=== PATIENT | female | born 1950 | race Caucasian/White ===

== ENCOUNTER 2023-07-20 23:55 | Inpatient (IN) | payer MEDICARE, SELFPAY ==
[2023-07-20 20:07] VITALS: BP 155/89
[2023-07-20 20:25] LABS: % Basophils 0.2 % (0-2); % Eosinophils 0.2 % (0-6); % Immature Granulocytes 0.4 % (0-0.5); % Lymphocytes 5.2 % (20.5-51.1); % Monocytes 4.1 % (1.7-9.3); % Neutrophils 89.9 % (42.2-75.2); Absolute Lymphocytes 0.6 10^3/uL (1.2-3.4); Absolute Monocytes 0.4 10^3/uL (0.1-0.6); Absolute Neutrophils 9.6 10^3/uL (1.4-6.5); Hematocrit 35.9 % (37.0-47.0); Hemoglobin 12.9 g/dL (12.0-16.0); Mean Corp Hgb Conc. 35.9 g/dL (33.0-37.0); Mean Corpuscular Hgb 33.3 pg (27.0-31.0); Mean Corpuscular Volume 92.8 fL (81.0-99.0); Mean Platelet Volume 10.9 fL (7.4-10.4); Nucleated Red Blood Cells % 0 %; Platelet Count 245 10^3/uL (130-400); Red Blood Cell Count 3.87 10^6/uL (4.20-5.40); Red Cell Dist. Width 12.9 % (11.5-14.5); White Blood Cell Count 10.7 10^3/uL (4.8-10.8)
[2023-07-20 20:41] LABS: Lactic Acid 1.3 mmol/L (0.7-2.0)
[2023-07-20 20:42] LABS: ALT (SGPT) 13 U/L (0-35); AST (SGOT) 22 U/L (14-36); Albumin 3.7 g/dl (3.5-5.0); Alkaline Phosphatase 79 U/L (38-126); Blood Urea Nitrogen 17 mg/dl (7-17); Calcium 9.4 mg/dl (8.4-10.2); Carbon Dioxide 25 mmol/L (22-30); Chloride 101 mmol/L (98-107); Glucose 130 mg/dl (70-99); Potassium 3.2 mmol/L (3.5-5.1); Sodium 132 mmol/L (135-145); Total Bilirubin 1.2 mg/dl (0.2-1.3); Total Protein 5.9 g/dl (6.3-8.2); eGFR > 60.00
[2023-07-20 20:45] LABS: COVID-19 Antigen Negative (Negative)
[2023-07-20 22:14] VITALS: BMI 25.1
[2023-07-20 22:18] VITALS: BP 152/88
[2023-07-20] MEDS: NSS 500 IV (22:19)
[2023-07-20] MEDS: DUONEB 3 ML INH (22:19)
[2023-07-20] MEDS: TYLENOL 1000 MG PO (22:39)
[2023-07-20 22:43] LABS: NT-proBNP 3620 pg/ml
--- NOTE | 2023-07-20 22:59 | ED.GENMED ---
History of Present Illness
General
Chief Complaint: Cough
Source: patient
Exam Limitations: none
Time Seen by Provider: 07/20/23 21:38
Nursing documentation reviewed up to this point in time: agreed with
Travel History
Have you had any contact with someone who has COVID-19?: No
Do you have any symptoms of coronavirus? Fever > 100 degrees, chills, cough, shortness of breath, sore throat, loss of taste or smell, muscle aches, or headache?: Yes
Symptoms:: fever cough
History of Present Illness
History of Present Illness:
Patient to ED with complaint of cough and SOB. Symptoms started last PM. States she took azithromycin 250mg last PM. Today she felt worse so she called 911 for transport here. Denies fever/chills. Difficulty talking in full sentences.
Past History
Past History
ED Past Medical History: Arrthythmia (Paroxysmal atrial fibrillation), Asthma, HTN, Other (Subarachnoid hemorrhage fracture C1, GI bleeding, Arthritis, PNA, Sepsis, questionable PE, Swallowing difficulty) and Other (Traumatic brain injury, C1
fracture, prior pneumonias. uveitis)
ED Past Surgical History: Appendectomy and Gynecological (Vaginal sling)
Social History
Tobacco: Non-smoker
Alcohol: Occasional
Drug: None
Personal:
Living: with family
Employment: Not employed
Family History
Family History: Other (Noncontributory)
Review of Systems
Review of Systems
Allergies reviewed?: Yes
All Other Systems: ROS reviewed and negative except as documented in HPI and ROS
Constitutional: Reports fatigue
EENT: Reports no symptoms
Respiratory: Reports cough and trouble breathing
Cardiac: Reports no symptoms
ABD/GI: Reports no symptoms
: Reports no symptoms
Musculoskeletal: Reports no symptoms
Skin: Reports no symptoms
Neurological: Reports no symptoms
Psychiatric: Reports no symptoms
Phy Exam
General Physical Exam
General Presentation: well appearing and no apparent distress
General age: appears stated age
General Skin: warm and dry
General Habitus: normal
Cardiovascular Exam
Cardiovascular Exam: regular rate/rhythm and no edema
Pulmonary Exam
Pulmonary Exam: decreased breath sounds
Cough: coarse cough
Gastrointestinal Exam
Gastrointestinal Exam: normal bowel sounds, non tender, soft and no organomegaly
Musculoskeletal Exam
Musculoskeletal Exam: full ROM and neuro vasc intact
Skin Exam
Skin Exam: normal color, warm/dry and no rash
Psychiatric Exam
Psychiatric Exam: normal mood/affect
Course
Orders/Labs/Results
Orders:
Orders
07/20/23 20:18
COVID-19 Antigen Urgent
Source: Nasal Swab
Complete Blood Count/With Diff Urgent
Comprehensive Metabolic Panel Urgent
Lactic Acid Urgent
Blood Culture Urgent
CLOTILDE Source: Blood/Venous
Specimen Description:
Influenza A+B Rapid Molecular Urgent
CLOTILDE Source: Nasal Swab
Specimen Description:
07/20/23 22:01
Chest [CR Chest - 2 Views ] Urgent
Comment:
Reason For Exam: cough/sob
07/20/23 22:02
EKG [Electrocardiogram (*1)] Urgent
Reason for Study: Shortness of Breath
EKG- Treatment ONCE
07/20/23 22:14
NT-proBNP Urgent
07/20/23 22:17
0.9% Sodium Chloride 500 ml [Nss] 500 ml IV BOLUS
Ipratropium/Albuterol Sulfate [Duoneb] 3 ml INH R NOW STA
07/20/23 22:21
Acetaminophen [Tylenol] 1,000 mg .ROUTE .STK-MED ONE
Acetaminophen [Tylenol] 1,000 mg PO NOW STA
07/20/23 22:40
Blood Culture Urgent
CLOTILDE Source: Blood/Venous
Specimen Description:
07/20/23 23:01
Azithromycin [Zithromax] 500 mg PO NOW STA
CefTRIAXone [Rocephin] 1,000 mg IV NOW STA
07/20/23 23:51
Admit/Transfer Patient As Directed
Co-Sign Provider:
Level of Care: Inpatient admission
Assign to:: Medical/Surgical
Physician / Group: aidee felipe
Diagnosis: right lower lobe pna, hypokalemia
Reason for Hospitalization: right lower lobe pna, hypokalemia
Expected length of stay greater than two midnights?: Yes
ELOS- Estimated Length of Stay in days: 4
I certify the patient meets the requirements for IP care: Yes
Code Status As Directed
Resuscitation Status: Do not resuscitate
Reached after discussion with pt or family/Healthcare POA: Yes
Based on pt advanced directive or healthcare POA form: Yes
Decision communicated with: per pt
Sputum Culture [Respiratory Culture/Gram Stain] Routine
CLOTILDE Source: Sputum
Specimen Description:
Potassium Chloride [KCl] 40 meq PO NOW STA
07/20/23 23:52
DNR Bracelet Application ONCE
07/21/23 00:48
Acetaminophen [Tylenol] 650 mg PO Q4HPRN PRN
Bisacodyl [Dulcolax] 10 mg RECTAL [id number] PRN
Docusate W/Senna [Senokot-S] 1 tablet PO BIDPRN PRN
Ipratropium/Albuterol Sulfate [Duoneb] 3 ml INH R Q4HPRN PRN
07/21/23 00:48
Activity As Directed
Activity Level: As Tolerated
Intake/ Output As Directed
Frequency: Per unit guidelines
Pneumatic Compression Sleeves As Directed
Type: Knee high
Vital Signs As Directed
Frequency: Per unit guidelines
Pulse Ox/spot Check [RESP] Routine
Quantity: 1
Ot Eval And Treat Routine
Pt Eval And Treat Routine
Activity Level: As Tolerated
DX Deep Vein Thrombosis Video Routine
07/21/23 03:32
Morphine Sulfate 15 mg PO QIDPRN PRN
07/21/23 03:34
Cyclobenzaprine HCl [Flexeril] 5 mg PO TIDPRN PRN
07/21/23 04:00
Morphine Sulfate Extended Rel. [Ms Contin (Extended Release)] 30 mg PO Q8H
07/21/23 05:04
Basic Metabolic Panel IN AM
Complete Blood Count/With Diff IN AM
07/21/23 08:00
Calcium Carbonate/Vitamin D3 [Oscal 500 + D] 500 mg PO DAILY
Cyanocobalamin [Vitamin B-12] 1,000 mcg PO DAILY
Ipratropium/Albuterol Sulfate [Duoneb] 3 ml INH R QID
Multivitamin [Theragran] 1 tablet PO DAILY
Pantoprazole [Protonix] 40 mg PO BID
Polyethylene Glycol Powder [Miralax] 17 grams PO DAILYPRN PRN
Sennosides [Senokot] 8.6 mg PO BID PRN
Valacyclovir HCl [Valtrex] 500 mg PO DAILY
conj estrog-medroxyprogest paula [Prempro] 1 tablet PO DAILY
07/21/23 Dinner
Cholesterol Lowering
At Your Request: Limited Participation
Cholesterol Lowering: Sodium, 2 Gram
07/21/23 22:00
Azithromycin 500 mg/250 ml [Zithromax Infusion] 500 mg in 250 ml IV Q24H
CefTRIAXone [Rocephin] 1,000 mg IV Q24H
Abnormal Lab Results
07/20/23
20:18
RBC 3.87 L 10^6/uL
(4.20-5.40)
Hct 35.9 L %
(37.0-47.0)
MCH 33.3 H pg
(27.0-31.0)
MPV 10.9 H fL
(7.4-10.4)
Absolute Neuts (auto) 9.6 H 10^3/uL
(1.4-6.5)
Absolute Lymphs (auto) 0.6 L 10^3/uL
(1.2-3.4)
Neutrophils % 89.9 H %
(42.2-75.2)
Lymphocytes % 5.2 L %
(20.5-51.1)
Sodium 132 L mmol/L
(135-145)
Potassium 3.2 L mmol/L
(3.5-5.1)
Creatinine 0.5 L mg/dL
(0.6-1.0)
Glucose 130 H mg/dl
(70-99)
Total Protein 5.9 L g/dl
(6.3-8.2)
07/20/23 20:18
07/20/23 20:18
Vital Signs
Initial and Last Documented VS:
Initial Vital Signs
Temp Pulse Resp BP Pulse Ox
100.3 F 101 30 155/89 96
07/20/23 20:07 07/20/23 20:07 07/20/23 20:07 07/20/23 20:07 07/20/23 20:07
Last Documented Vital Signs
Temp Pulse Resp BP Pulse Ox
99.3 F 82 15 134/86 96
07/22/23 07:00 07/22/23 15:04 07/22/23 15:04 07/22/23 07:00 07/22/23 08:30
*Critical Care Note
Total Time (30-74mins, 75-104mins- exclusive of procedures): Not Applicable
ED Attending Note
-
Portions of this chart may have been created with voice recognition software.� Occasional wrong word or��sound alike� substitutions may have occurred due to the inherent limitations of voice recognition software.
Discharge Plan
Departure
Patient Disposition: Admit
Date of Disposition: 07/20/23
Time of Disposition: 23:10
Presentation/result/management discussed w/ accepting MD/DO: Hospitalist
Patient with high blood pressure during this ER visit?: No
Condition: Fair
Covid-19: Not Applicable
Discharge Problem:
Pneumonia
Interventions
Interventions:
*Risk Screen - Suicide Last Done: 07/20/23 20:07
*General Assessment Last Done: 07/20/23 20:07
*Neglect/Abuse Screening Last Done: 07/20/23 20:07
ED- Fall Risk Assessment Last Done: 07/21/23 11:52
*ED COVID-19 Vaccine History Last Done: 07/20/23 20:07
*Nursing Disposition Last Done: 07/21/23 13:56
ED- Pulmonary Assessment Last Done: 07/20/23 22:16
Discharge Date and Time
Discharge Date/Time: 07/21/23 13:56
[2023-07-20 23:00] VITALS: BP 134/92
[2023-07-20] MEDS: ROCEPHIN 1000 MG IV (23:27)
[2023-07-20] MEDS: ZITHROMAX 500 MG PO (23:27)
--- NOTE | 2023-07-20 23:32 | HPS.HSE ---
Family Physician
-
Family Physician: Hilary Braxton
Chief Complaint
-
Productive cough, green nasal sputum, fever chills
History of Present Illness
73-year-old female complaining of productive yellow cough and shortness of breath that started last p.m. she also reports green nasal sputum and headache. She took 1 dose of Zithromax 250 mg last night. She came to ER via EMS. She was noted to be
febrile 101.9F, tachycardic and showing a right lower lobe pneumonia on chest x-ray. She denies headache, chest pain, palpitations, shortness of breath, abdominal pain, nausea, vomiting, diarrhea, urinary symptoms. She has past medical history of
hypertension, asthma, chronic pain on chronic oral opiates, TBI with C1 fracture, insomnia, iron deficiency, B12 deficiency, GERD, paroxysmal A-fib with history of subarachnoid hemorrhage not on any current AC therapy, shingles left eye 20 years ago
with chronic left upper eyelid droop photosensitivity
Medical History
Past Medical History
Past Medical History: Reports Other
Additional Past Medical History:
hypertension
asthma
chronic pain on chronic oral opiates
TBI with C1 fracture
insomnia
iron deficiency, B12 deficiency
GERD
paroxysmal A-fib with history of subarachnoid hemorrhage not on any current AC therapy
shingles left eye 20 years ago with chronic left upper eyelid droop photosensitivity
Past Surgical History: Reports Other
Additional Past Surgical History:
Appendectomy
Vaginal sling
IVC filter for DVT
Eye surgery for glaucoma and cataracts
Social History
Tobacco: Non-smoker
Alcohol: None
Drug: None
Personal: Single
Living: Alone
Employment: Retired
Family History
Family History: Not pertinent
Allergies / Home Medications
Allergies reflects when Allergies were last updated in aitainment.
Home Medications with original date entered in aitainment
Allergy/Medication List:
Allergies
Allergy/AdvReac Type Severity Reaction Status Date / Time
Adhesive Bandage Allergy skin Verified 07/20/23 20:09
*RETIRED-12/16/11 irritation
[Adhesive Bandage]
lanolin Allergy Unknown Verified 07/20/23 20:09
Latex, Natural Rubber Allergy Unknown Verified 07/20/23 20:09
povidone-iodine Allergy watery Verified 07/20/23 20:09
[From Betadine] blister on
back
sodium lauryl sulfate Allergy breaks out Verified 07/20/23 20:09
seasonal Allergy Pharmacy Uncoded 07/20/23 20:09
to Review
some anesthesias Allergy Unknown Uncoded 07/20/23 20:09
Home Medications
acetaminophen 325 mg tablet 650 mg PO Q6HPRN PRN mild pain 11/24/18
albuterol sulfate 90 mcg/actuation aerosol inhaler 2 puff inhalation R Q4HPRN PRN sob 11/24/18
aluminum hydrox-magnesium carb 95 mg-358 mg/15 mL oral suspension (Acid Gone Antacid) 15 ml PO BIDPRN PRN indigestion 11/24/18
calcium carbonate 500 mg-vitamin D3 5 mcg (200 unit) tablet (Oyster Shell Calcium-Vitamin D3) 1 tab PO DAILY Supplement 11/24/18
conj estrogen-medroxyprogesterone 0.3 mg-1.5 mg tablet (Prempro) 1 tab PO DAILY RATIONALE NOT IDENTIFIED ##0 11/24/18
cyclobenzaprine 10 mg tablet 5 mg PO TIDPRN PRN muscle spasm 11/24/18
glucosamine sulf dipot chlr,msm,chond 550 mg-C 30 mg-mayco 1 mg capsule (Glucosamine Chondroitin) 1 tab PO DAILY Supplement 11/24/18
morphine 15 mg immediate release tablet 15 mg PO QIDPRN PRN breakthrough pain 11/24/18
morphine 30 mg tablet,extended release 30 mg PO Q8H severe pain 11/24/18
multivitamin with folic acid 400 mcg tablet (Tab-A-Akanksha) 1 tab PO DAILY Supplement 11/24/18
oxymetazoline 0.05 % nasal spray (Afrin Sinus (oxymetazoline)) 1 sprays intranasal BIDPRN PRN congestion 11/24/18
zolpidem 12.5 mg tablet,extended release,multiphase 12.5 mg PO HSPRN PRN insomnia 11/24/18
pantoprazole 40 mg tablet,delayed release 40 mg PO BID #60 tabs 11/26/18
albuterol sulfate 2.5 mg/3 mL (0.083 %) solution for nebulization 2.5 mg inhalation R Q6HPRN PRN sob 11/02/19
guaifenesin 600 mg tablet, extended release 12 hr 600 mg PO BIDPRN PRN sob 11/02/19
cyanocobalamin (vitamin B-12) 1,000 mcg tablet 1,000 mcg PO DAILY 11/04/19
ferrous sulfate 325 mg (65 mg iron) tablet (Iron (ferrous sulfate)) 325 mg PO DAILY 100 days #100 tabs 11/04/19
fluticasone propionate 115 mcg-salmeterol 21 mcg/actuation HFA inhaler (Advair HFA) 1 puff inhalation R BID 07/20/23
losartan 100 mg-hydrochlorothiazide 12.5 mg tablet 1 tab PO DAILY 07/20/23
sennosides 8.6 mg tablet (senna) 1 tab PO BID PRN constipation 07/20/23
valacyclovir 500 mg tablet 500 mg PO DAILY 07/20/23
Review of Systems
-
History Source: Patient
A 12 point ROS was completed and negative except as noted: Yes
Constitutional: Reports Chills
EENT: Reports Runny Nose (Green in color) and Other (Chronic left upper eyelid droop); Denies Sore Throat
Respiratory: Reports Cough; Denies Trouble Breathing
Cardiac: Denies Chest Pain, Diaphoresis, Palpitations or Syncope
Abdomen/GI: Denies Abdominal Pain, Nausea, Vomiting, Diarrhea or Constipated
: Denies Dysuria, Frequency, Flank Pain, Incontinence or Difficulty Voiding
Musculoskeletal: Denies Joint Pain or Edema
Skin: Denies Itching or Rash
Neurological: Reports Headache; Denies Dizzy or Weakness
Endocrine: Reports No Symptoms
Hematologic/Lymphatic: Reports No Symptoms
Psych: Reports Calm
Physical Exam
Vital Signs
Vital Signs
Temp Pulse Resp BP Pulse Ox
101.9 F H 122 34 152/88 95
07/20/23 22:41 07/20/23 22:30 07/20/23 22:30 07/20/23 22:18 07/20/23 22:30
Physical Exam
General: Comfortable, Conversant, Fever and Chills
HEENT: NormoCephalic, Anicteric, PERRLA, [place] Conjunctivae and Other (Chronic left upper eyelid droop no active shingles lesions)
Respiratory: Rhonchi (Right lower lung); No Wheezes or Rales
Cardiac: S1/S2 and Tachycardia; No Murmur, Rub, Gallop or Peripheral Edema
Breast: Deferred by me
GI: Soft, Non Tender, Non Distended, Normal Bowel Sounds and No Hepatosplenomegaly
Rectal: Deferred by Provider
Genito-urinary: Deferred by me
Musculoskeletal: No Clubbing, No Cyanosis and No Edema
Skin: Warm and Dry; No Rash or Jaundice
Neuro: AO x 3, No Motor Deficits, Nonfocal/grossly intact and No Sensory Deficits; No Slurred Speech, Facial Droop, Tremors or Sedated
Psych: Calm
Laboratory Results
-
07/20/23 20:18
07/20/23 20:18
Laboratory Results
Lactic Acid 1.3 mmol/L (0.7-2.0) 07/20/23 20:18
Total Bilirubin 1.2 mg/dl (0.2-1.3) 07/20/23 20:18
AST 22 U/L (14-36) 07/20/23 20:18
ALT 13 U/L (0-35) 07/20/23 20:18
Alkaline Phosphatase 79 U/L (38-126) 07/20/23 20:18
Data Reviewed
-
Diagnostic Radiology: Report Reviewed by me
Lab Data: Labs Reviewed by me
Impression/Plan
-
Impression/plan:
Admit to MedSurg
#Sepsis 2/2 Right lung pneumonia
101.9 F, HR 122, 152/88, 95% RA
COVID/Flu -negative
-Sputum culture
-Incentive spirometry
-Blood cultures x 2
-Tylenol as needed fever
-IV Rocephin, Zithromax
-PT/OT/case management consult
CXR: Mid to right lower lung PNA
#Hypokalemia
K3.2
Give KCl 40 mEq
#Paroxysmal A-fib
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
#GERD
# GI bleed hx
#distal reflux esophagitis
Continue Protonix 40 mg twice daily
#HTN�benign
-Continue losartan 100 mg
-Hold HCTZ 12.5 Mg
#Asthma-no acute exacerbation
Continue inhalers
#Chronic pain
Continue morphine 30 mg every 8 hours severe pain, 15 mg 4 times daily as needed
#Chronic anemia -B12 and iron deficiency
#DVT with IVC filter
#TBI, C1 fracture, subarachnoid hemorrhage
#Arthritis
-Continue calcium plus D
Anxiety, depression
-No reported meds
#Insomnia
Hold Ambien
#Chronic left eye upper lid droop
#Reports history of shingles left eye 20 years ago
-Takes valacyclovir 500 mg daily
DVT prophylaxis
SCDs
DNR
--- NOTE | 2023-07-20 23:49 | W.PN.UPDATE ---
Update Note
Progress Note Update
This is an addendum to the H&P written by CINDI Vincent on 07/20/2023.
Patient seen and examined independently with STOCK SUPERVISOR. 73-year-old female past medical history of paroxysmal atrial fibrillation not on anticoagulation, DVT with IVC filter, asthma, hypertension, GI bleeding, subarachnoid hemorrhage, chronic back/neck
pain, history of shingles right eye on chronic valtrex, patient presenting with cough and shortness of breath since yesterday. She is clinically septic with fever, tachycardia and tachypnea. Chest x-ray shows pneumonia in the mid to lower right
lung. Check blood cultures. IV fluids. Ceftriaxone/azithromycin.
Patient has chronic hyponatremia, hypokalemia likely secondary to hydrochlorothiazide. Hold hydrochlorothiazide. Replete potassium.
Patient keeps here right eye squinted chronically due to history of shingles in right eye with chronic symptoms. No pain or discharge.
[2023-07-21] VITALS (16 sets, daily range): BP systolic 122–153; BP diastolic 70–99; PULSE 129; O2SAT 96
[2023-07-21] MEDS: KCL 40 MEQ PO ×2 (00:53→13:49)
[2023-07-21] MEDS: MS CONTIN (EXTENDED RELEASE) PO (05:41)
[2023-07-21 06:24] LABS: % Basophils 0.3 % (0-2); % Eosinophils 1.6 % (0-6); % Immature Granulocytes 0.3 % (0-0.5); % Lymphocytes 5.7 % (20.5-51.1); % Monocytes 4.9 % (1.7-9.3); % Neutrophils 87.2 % (42.2-75.2); Absolute Eosinophils 0.2 10^3/uL (0-0.7); Absolute Lymphocytes 0.6 10^3/uL (1.2-3.4); Absolute Monocytes 0.5 10^3/uL (0.1-0.6); Absolute Neutrophils 8.3 10^3/uL (1.4-6.5); Hematocrit 32.7 % (37.0-47.0); Hemoglobin 11.6 g/dL (12.0-16.0); Mean Corp Hgb Conc. 35.5 g/dL (33.0-37.0); Mean Corpuscular Hgb 33.3 pg (27.0-31.0); Mean Platelet Volume 11.7 fL (7.4-10.4); Nucleated Red Blood Cells % 0 %; Platelet Count 203 10^3/uL (130-400); Red Blood Cell Count 3.48 10^6/uL (4.20-5.40); Red Cell Dist. Width 12.5 % (11.5-14.5); White Blood Cell Count 9.6 10^3/uL (4.8-10.8)
[2023-07-21 06:49] LABS: Blood Urea Nitrogen 15 mg/dl (7-17); Calcium 8.6 mg/dl (8.4-10.2); Carbon Dioxide 24 mmol/L (22-30); Chloride 102 mmol/L (98-107); Estimated Creatinine Clearance 64 ml/min; Glucose 91 mg/dl (70-99); Potassium 3.3 mmol/L (3.5-5.1); Sodium 133 mmol/L (135-145); eGFR > 60.00
[2023-07-21] MEDS: DUONEB 3 ML INH ×4 (08:36→20:27)
[2023-07-21] MEDS: VITAMIN B-12 1000 MCG PO (09:10)
[2023-07-21] MEDS: THERAGRAN 1 TABLET PO (09:10)
[2023-07-21] MEDS: PROTONIX 40 MG PO ×2 (09:10→20:09)
[2023-07-21] MEDS: VALTREX 500 MG PO (09:10)
[2023-07-21] MEDS: OSCAL 500 + D 500 MG PO (09:10)
[2023-07-21] MEDS: IMODIUM 2 MG PO (11:20)
[2023-07-21] MEDS: ANESTHETIC LOZENGE 1 LOZENGE PO (11:21)
[2023-07-21] MEDS: MS CONTIN (EXTENDED RELEASE) 30 MG PO ×2 (11:22→20:08)
--- NOTE | 2023-07-21 12:32 | W.PN.HOSP.TC ---
Today's Communication/Plan
-
Monitor vitals
see plan
Monitor blood cultures
Continue with antibiotics
Start nystatin
Check Legionella, strep
replete Potassium
Assessment / Plan
Assessment / Plan
General: Comfortable, Conversant, Fever and Chills
HEENT: NormoCephalic, Anicteric, PERRLA, [place] Conjunctivae and Other (Chronic left upper eyelid droop no active shingles lesions)
Respiratory: Rhonchi (Right lower lung); No Wheezes or Rales
Cardiac: S1/S2 and Tachycardia; No Murmur, Rub, Gallop or Peripheral Edema
Breast: Deferred by me
GI: Soft, Non Tender, Non Distended, Normal Bowel Sounds
Rectal: Deferred by Provider
Genito-urinary: Deferred by me
Musculoskeletal: No Clubbing, No Cyanosis and No Edema
Skin: Warm and Dry; No Rash or Jaundice
Neuro: AO x 3, No Motor Deficits, Nonfocal/grossly intact
Psych: Calm
Sepsis 2/2 Right lung pneumonia
bcx pending
COVID/Flu -negative
-Sputum culture
-Incentive spirometry
-Tylenol as needed fever
-IV Rocephin, Zithromax
Check Legionella, strep
CXR: Mid to right lower lung PNA
Oral thrush
Start nystatin
#Hypokalemia
replete
#Paroxysmal A-fib
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
#GERD
# GI bleed hx
#distal reflux esophagitis
Continue Protonix 40 mg twice daily
#HTN�benign
-Continue losartan 100 mg
-Hold HCTZ 12.5 Mg
#Asthma-no acute exacerbation
Continue inhalers
#Chronic pain
Continue morphine 30 mg every 8 hours severe pain, 15 mg 4 times daily as needed
monitor for sedation
#Chronic anemia -B12 and iron deficiency
#DVT with IVC filter
#TBI, C1 fracture, subarachnoid hemorrhage
#Arthritis
-Continue calcium plus D
Anxiety, depression
-No reported meds
#Insomnia
Hold Ambien
#Chronic left eye upper lid droop
#Reports history of shingles left eye 20 years ago
-Takes valacyclovir 500 mg daily
DVT prophylaxis
SCDs; lovenox
DNR
Anticipated Discharge: > 48 hours
Subjective/Interval History
-
Date of Service: July 21, 2023
denies nausea
Objective Data
-
Labs:
Laboratory Results
07/21/23
05:04
WBC 9.6
Hgb 11.6 L
Hct 32.7 L
Plt Count 203
Sodium 133 L
Potassium 3.3 L
Chloride 102
Carbon Dioxide 24
BUN 15
Creatinine 0.4 L
Glucose 91
Calcium 8.6
Vital Signs:
Vital Signs
Temp Pulse Resp BP Pulse Ox
101.9 F H 111 20 138/95 95
07/20/23 22:41 07/21/23 11:15 07/21/23 11:15 07/21/23 10:00 07/21/23 11:15
I&O
07/20/23 07/21/23 07/22/23
06:59 06:59 06:59
Intake Total 240 / 240
Balance 240 / 240
[2023-07-21] MEDS: MYCOSTATIN ORAL SUSPENSION 5 ML PO ×3 (13:49→22:27)
--- NOTE | 2023-07-21 15:01 | PTCARENOTE ---
pt admitted from [facility] AOx[facility] C/O pain reports she takes MScotin, states she has some with her and when asked if family could transport she states they are unable. pt's own medications counted with this RN and pharmacy. on admission pt was on 2L but
during assessment trial to RA pt remains 97%. Lungs sounds are coarse b/l LL. pt reports chronic loose stool which she attributes to poisoning in her air at home d/t possible mold. cont b&B. skin CDI. +2b/l LE edema +pp b/l. cb in reach, instructed
on use
[2023-07-21] MEDS: MORPHINE SULFATE 15 MG PO ×2 (16:28→22:27)
[2023-07-21] MEDS: LOVENOX 40 MG SC (18:07)
--- NOTE | 2023-07-21 20:13 | PTCARENOTE ---
Patient requesting her MS Contin and Ambien be given together. This RN explained multiple times that per the MD's note Ambien is on hold at this time. Patient upset and stated 'I hope that doctor has a horrible night'. Patient then upset that this
RN will not give her MS Contin, Morphine IR, and Flexeril at the same time. Patient states she has been taking her meds this way at home for 10 years. Patient kept eyes closed during entire interaction with this RN. Explained to patient that when
she is able to have her PRN Morphine IR that this RN will bring it in if patient is having pain.
[2023-07-21] MEDS: ZITHROMAX INFUSION 250 IV (22:26)
[2023-07-21] MEDS: ROCEPHIN 1000 MG IV (22:27)
[2023-07-22] MEDS: DUONEB 3 ML INH ×5 (01:38→19:54)
[2023-07-22] MEDS: MS CONTIN (EXTENDED RELEASE) 30 MG PO ×3 (03:53→19:56)
--- NOTE | 2023-07-22 05:55 | PTCARENOTE ---
Patient woke up and screamed she needed help, This RN went into patient's room. Patient very dyspneic and anxious. Pulse ox 89% on 2L o2. Patient placed on 6L O2 but uable to breath through her nose. Non- rebreather placed on patient. Pulse ox 99%.
Coarse rhonchi auscultated throughout B/L lung. Respiratory therapist on unit and will be administering Duo neb. SADAF Chirinos notified of patient's status. Patient on IV abx for PNA but no steroids ordered at this time. No new orders received
at this time. LAW ENFORCEMENT OFFICER wanting to know status after neb. Will assess and notify.
[2023-07-22 06:01] LABS: Blood Urea Nitrogen 16 mg/dl (7-17); Carbon Dioxide 16 mmol/L (22-30); Chloride 103 mmol/L (98-107); Estimated Creatinine Clearance 64 ml/min; Glucose 109 mg/dl (70-99); Potassium 4.1 mmol/L (3.5-5.1); Sodium 135 mmol/L (135-145); eGFR > 60.00
[2023-07-22 07:00] VITALS: BP 134/86
[2023-07-22] MEDS: PROTONIX 40 MG PO ×2 (08:24→19:56)
[2023-07-22] MEDS: THERAGRAN 1 TABLET PO (08:24)
[2023-07-22] MEDS: MYCOSTATIN ORAL SUSPENSION 5 ML PO ×4 (08:25→21:49)
[2023-07-22] MEDS: OSCAL 500 + D 500 MG PO (08:25)
[2023-07-22] MEDS: VITAMIN B-12 1000 MCG PO (08:25)
[2023-07-22] MEDS: VALTREX 500 MG PO (08:25)
[2023-07-22 08:32] LABS: % Basophils 0.4 % (0-2); % Immature Granulocytes 0.4 % (0-0.5); % Lymphocytes 5.7 % (20.5-51.1); % Neutrophils 87.5 % (42.2-75.2); Absolute Basophils 0.1 10^3/uL (0-0.2); Absolute Immature Granulocytes 0.1 10^3/uL (0-0.05); Absolute Lymphocytes 0.7 10^3/uL (1.2-3.4); Absolute Monocytes 0.7 10^3/uL (0.1-0.6); Absolute Neutrophils 10.8 10^3/uL (1.4-6.5); Hematocrit 40.6 % (37.0-47.0); Mean Corpuscular Hgb 32.7 pg (27.0-31.0); Mean Corpuscular Volume 93.5 fL (81.0-99.0); Nucleated Red Blood Cells % 0 %; Platelet Count 342 10^3/uL (130-400); Red Blood Cell Count 4.34 10^6/uL (4.20-5.40); Red Cell Dist. Width 13.2 % (11.5-14.5); White Blood Cell Count 12.3 10^3/uL (4.8-10.8)
[2023-07-22 08:36] LABS: Hemoglobin 14.2 g/dL (12.0-16.0)
[2023-07-22] MEDS: ADVAIR HFA 115/21 MCG INHALER INH (10:17)
[2023-07-22] MEDS: MUCINEX 1200 MG PO ×2 (11:21→19:56)
[2023-07-22] MEDS: DECADRON 4 MG IV ×2 (11:22→17:00)
--- NOTE | 2023-07-22 12:12 | W.PN.HOSP.TC ---
Today's Communication/Plan
-
Monitor vital signs
see plan
Wheezing this morning, suspect acute bronchitis as well. Start IV Decadron, nebs
Legionella, strep pending
Continue with antibiotics
Follow fever curve
Assessment / Plan
Assessment / Plan
General: Comfortable, Conversant, Fever and Chills
HEENT: NormoCephalic, Anicteric, PERRLA, [place] Conjunctivae and Other (Chronic left upper eyelid droop no active shingles lesions)
Respiratory: Rhonchi (Right lower lung)
Cardiac: S1/S2 and Tachycardia
GI: Soft, Non Tender, Non Distended, Normal Bowel Sounds
Musculoskeletal: No Edema
Skin: Warm and Dry; No Rash or Jaundice
Neuro: AO x 3, No Motor Deficits, Nonfocal/grossly intact
Psych: Calm
Sepsis 2/2 Right lung pneumonia
Acute hypoxic respiratory failure secondary to above, wean oxygen as tolerated
suspect acute bronchitis 2/2 above
start IV steroids;nebs
bcx NGTD
COVID/Flu -negative
-Sputum culture
-Incentive spirometry
-Tylenol as needed fever
-IV Rocephin, Zithromax
Check Legionella, strep; never drawn
CXR: Mid to right lower lung PNA
Oral thrush
cw nystatin
#Hypokalemia
resolved
#Paroxysmal A-fib
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
#GERD
# GI bleed hx
#distal reflux esophagitis
Continue Protonix 40 mg twice daily
#HTN�benign
-Continue losartan 100 mg
-Hold HCTZ 12.5 Mg
#Asthma-no acute exacerbation
Continue inhalers
#Chronic pain
Continue morphine 30 mg every 8 hours severe pain, 15 mg 4 times daily as needed
monitor for sedation
#Chronic anemia -B12 and iron deficiency
#DVT with IVC filter
#TBI, C1 fracture, subarachnoid hemorrhage
#Arthritis
-Continue calcium plus D
Anxiety, depression
-No reported meds
#Insomnia
Hold Ambien
#Chronic left eye upper lid droop
#Reports history of shingles left eye 20 years ago
-Takes valacyclovir 500 mg daily
DVT prophylaxis
SCDs; lovenox
DNR
I spent a total of 52 minutes with the patient or on the floor. More than 50% of this time involved counseling and coordination of care.
Anticipated Discharge: > 48 hours
Subjective/Interval History
-
Date of Service: July 22, 2023
had sob overnight
Objective Data
-
Labs:
Laboratory Results
07/22/23
05:15
WBC 12.3 H
Hgb 14.2 D
Hct 40.6
Plt Count 342 D
Sodium 135
Potassium 4.1
Chloride 103
Carbon Dioxide 16 L
BUN 16
Creatinine 0.5 L
Glucose 109 H
Calcium 10.0
Vital Signs:
Vital Signs
Temp Pulse Resp BP Pulse Ox
99.3 F 88 18 134/86 96
07/22/23 07:00 07/22/23 11:18 07/22/23 11:18 07/22/23 07:00 07/22/23 08:30
I&O
07/21/23 07/22/23 07/23/23
06:59 06:59 06:59
Intake Total 240 / 240 680 / 680
Balance 240 / 240 680 / 680
[2023-07-22 16:00] VITALS: BP 127/92
[2023-07-22] MEDS: LOVENOX 40 MG SC (17:00)
[2023-07-22] MEDS: ADVAIR HFA 115/21 MCG INHALER 1 PUFF INH (19:54)
[2023-07-22] MEDS: STERILE WATER FOR INJECTION 10 ML IV (21:49)
[2023-07-22] MEDS: ROCEPHIN 1000 MG IV (21:49)
[2023-07-22] MEDS: ZITHROMAX 500 MG PO (21:49)
[2023-07-22 23:53] VITALS: BP 127/80
[2023-07-23] MEDS: DECADRON 4 MG IV ×3 (01:47→17:57)
[2023-07-23] MEDS: MS CONTIN (EXTENDED RELEASE) 30 MG PO ×3 (03:46→19:41)
[2023-07-23 07:12] LABS: % Basophils 0.2 % (0-2); % Immature Granulocytes 0.8 % (0-0.5); % Lymphocytes 5.6 % (20.5-51.1); % Monocytes 1.6 % (1.7-9.3); % Neutrophils 91.8 % (42.2-75.2); Absolute Immature Granulocytes 0.1 10^3/uL (0-0.05); Absolute Lymphocytes 0.8 10^3/uL (1.2-3.4); Absolute Monocytes 0.2 10^3/uL (0.1-0.6); Absolute Neutrophils 12.3 10^3/uL (1.4-6.5); Hematocrit 33.6 % (37.0-47.0); Mean Corp Hgb Conc. 35.7 g/dL (33.0-37.0); Mean Corpuscular Hgb 32.9 pg (27.0-31.0); Mean Corpuscular Volume 92.1 fL (81.0-99.0); Mean Platelet Volume 11.4 fL (7.4-10.4); Nucleated Red Blood Cells % 0 %; Platelet Count 300 10^3/uL (130-400); Red Blood Cell Count 3.65 10^6/uL (4.20-5.40); Red Cell Dist. Width 12.9 % (11.5-14.5); White Blood Cell Count 13.4 10^3/uL (4.8-10.8)
[2023-07-23 07:26] LABS: Blood Urea Nitrogen 24 mg/dl (7-17); Calcium 9.8 mg/dl (8.4-10.2); Carbon Dioxide 23 mmol/L (22-30); Chloride 101 mmol/L (98-107); Estimated Creatinine Clearance 64 ml/min; Glucose 128 mg/dl (70-99); Sodium 130 mmol/L (135-145); eGFR > 60.00
[2023-07-23 07:31] VITALS: BP 120/81
[2023-07-23] MEDS: DUONEB 3 ML INH ×4 (07:41→19:23)
[2023-07-23] MEDS: ADVAIR HFA 115/21 MCG INHALER 1 PUFF INH ×2 (07:41→19:23)
[2023-07-23] MEDS: THERAGRAN 1 TABLET PO (08:12)
[2023-07-23] MEDS: MYCOSTATIN ORAL SUSPENSION 5 ML PO ×4 (08:12→21:47)
[2023-07-23] MEDS: PROTONIX 40 MG PO ×2 (08:12→19:42)
[2023-07-23] MEDS: OSCAL 500 + D 500 MG PO (08:12)
[2023-07-23] MEDS: VALTREX 500 MG PO (08:13)
[2023-07-23] MEDS: MUCINEX 1200 MG PO ×2 (08:13→19:42)
[2023-07-23] MEDS: FEOSOL 325 MG PO (08:13)
[2023-07-23] MEDS: VITAMIN B-12 1000 MCG PO (08:13)
[2023-07-23] MEDS: MORPHINE SULFATE 15 MG PO (08:37)
--- NOTE | 2023-07-23 10:16 | PN.CDI ---
CDI
- -
CDI:
Physician Documentation Request
Admit Date: 07/20/23 23:55
Dear Doctor Emmanuel,
Please review the following and provide your response in the progress notes.
Clinical Indicators:
07/19 H&P note-'chronic pain on chronic oral opiates'.
Home meds:
morphine 15 mg immediate release tablet - given 3 times since admission
morphine 30 mg tablet,extended release- given 6 times since admission
07/20 Nurses note: ' Patient then upset that this RN will not give her MS Contin, Morphine IR, and Flexeril at the same time. Patient states she has been taking her meds this way at home for 10 years.'
If possible, please provide further specificity as outlined below:
Please specify the pattern of use, include all that apply:
- Use, with or without abuse and/or dependence
- Dependence
- Other
Use of terms such as suspected, likely, concern for, or probable (associated with a specific diagnosis that is being evaluated, monitored, or treated as if it exists) are acceptable and can be coded in the inpatient setting, when documented at the
time of discharge.
Thank you,
Hermelinda Castaneda RN, BSN
CDI Specialist
Please use your independent medical judgment in providing your response.
[2023-07-23 10:50] VITALS: PULSE 66; O2SAT 99
--- NOTE | 2023-07-23 11:37 | W.PN.HOSP.TC ---
Today's Communication/Plan
-
monitor vitals
see plan
cw steroids,nebs
cw abx
wean o2 as tolerated
Called daughter, could not leave voicemail since mailbox is full
monitor sodium
Assessment / Plan
Assessment / Plan
General: Comfortable, Conversant, Fever and Chills
HEENT: NormoCephalic, Anicteric, PERRLA, [place] Conjunctivae and Other (Chronic left upper eyelid droop no active shingles lesions)
Respiratory: Rhonchi (Right lower lung)
Cardiac: S1/S2 and Tachycardia
GI: Soft, Non Tender, Non Distended, Normal Bowel Sounds
Musculoskeletal: No Edema
Skin: Warm and Dry; No Rash or Jaundice
Neuro: AO x 3, No Motor Deficits, Nonfocal/grossly intact
Psych: Calm
Sepsis 2/2 Right lung pneumonia
Acute hypoxic respiratory failure secondary to above, wean oxygen as tolerated
suspect acute asthma exacerbation 2/2 above
start IV steroids;nebs
bcx NGTD
COVID/Flu -negative
-Sputum culture
-Incentive spirometry
-Tylenol as needed fever
-IV Rocephin, Zithromax
Legionella, strep neg
CXR: Mid to right lower lung PNA
Oral thrush
cw nystatin
#Hypokalemia
resolved
Hyponatremia
Monitor
#Paroxysmal A-fib
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
#GERD
# GI bleed hx
#distal reflux esophagitis
Continue Protonix 40 mg twice daily
#HTN�benign
-Continue losartan 100 mg
-Hold HCTZ 12.5 Mg
#Chronic pain
Opioid use with dependence
Continue morphine 30 mg every 8 hours severe pain, 15 mg 4 times daily as needed
monitor for sedation
#Chronic anemia -B12 and iron deficiency
#DVT with IVC filter
#TBI, C1 fracture, subarachnoid hemorrhage
#Arthritis
-Continue calcium plus D
Anxiety, depression
-No reported meds
#Insomnia
Hold Ambien
#Chronic left eye upper lid droop
#Reports history of shingles left eye 20 years ago
-Takes valacyclovir 500 mg daily
DVT prophylaxis
SCDs; lovenox
DNR
I spent a total of 53 minutes with the patient or on the floor. More than 50% of this time involved counseling and coordination of care.
Anticipated Discharge: 24 - 48 hours
Subjective/Interval History
-
Date of Service: July 23, 2023
denies pain
Objective Data
-
Labs:
Laboratory Results
07/23/23
06:42
WBC 13.4 H
Hgb 12.0
Hct 33.6 L
Plt Count 300
Sodium 130 L
Potassium 4.0
Chloride 101
Carbon Dioxide 23
BUN 24 H
Creatinine 0.6
Glucose 128 H
Calcium 9.8
Vital Signs:
Vital Signs
Temp Pulse Resp BP Pulse Ox
98.5 F 84 16 120/81 98
07/23/23 07:31 07/23/23 07:44 07/23/23 07:44 07/23/23 07:31 07/23/23 10:55
I&O
07/22/23 07/23/23 07/24/23
06:59 06:59 06:59
Intake Total 680 / 680 300 / 300
Balance 680 / 680 300 / 300
[2023-07-23] MEDS: TESSALON PERLES 200 MG PO ×3 (12:14→21:47)
--- NOTE | 2023-07-23 13:13 | CM ---
Reviewed chart, met with patient to obtain information for assessment. Patient stated that she lives in a two story home by herself with two steps to enter. Patient became tearful upon talking about living alone as her spouse just in
April. Patient did confirm however that she is independent with her ADLs, personal care, dressing and bathing. She does not use an assistive device to help her ambulate.
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 She drives and can get to her appointments and do all of her own shopping.
She has a daughter who does not live close but is supportive and readily available for her on the phone.
Patient denied any DME in her home with exception of a CPAP she does not use. She does not have home o2.
She has never been to a SNF not has she had VN.
She has a prescription plan and uses [facility] on .
Her PCP is Dr. Hilary Braxton.
Patient denied any needs at time of discharge. She stated that she wants to return home and possibly put it up for sale so that she can live closer to her daughter. She is hoping to wean off of o2 and she hopes that she does not need it upon
discharge.
Plan: Case management will continue to follow and assist with discharge planning. Will watch for o2 needs.
[2023-07-23 15:37] VITALS: BP 126/85
[2023-07-23] MEDS: LOVENOX 40 MG SC (17:57)
[2023-07-23] MEDS: STERILE WATER FOR INJECTION 10 ML IV (21:47)
[2023-07-23] MEDS: ZITHROMAX 500 MG PO (21:47)
[2023-07-23] MEDS: ROCEPHIN 1000 MG IV (21:47)
[2023-07-23 23:28] VITALS: BP 146/94
[2023-07-24] MEDS: MS CONTIN (EXTENDED RELEASE) 30 MG PO ×3 (03:04→21:24)
[2023-07-24] MEDS: DECADRON 4 MG IV ×3 (03:04→17:39)
[2023-07-24 06:50] LABS: % Basophils 0.2 % (0-2); % Immature Granulocytes 2.1 % (0-0.5); % Monocytes 2.1 % (1.7-9.3); % Neutrophils 89.6 % (42.2-75.2); Absolute Immature Granulocytes 0.4 10^3/uL (0-0.05); Absolute Lymphocytes 1.2 10^3/uL (1.2-3.4); Absolute Monocytes 0.4 10^3/uL (0.1-0.6); Absolute Neutrophils 17.5 10^3/uL (1.4-6.5); Hematocrit 34.2 % (37.0-47.0); Hemoglobin 12.3 g/dL (12.0-16.0); Mean Corpuscular Volume 91.7 fL (81.0-99.0); Mean Platelet Volume 11.2 fL (7.4-10.4); Nucleated Red Blood Cells % 0 %; Platelet Count 366 10^3/uL (130-400); Red Blood Cell Count 3.73 10^6/uL (4.20-5.40); Red Cell Dist. Width 13.1 % (11.5-14.5); White Blood Cell Count 19.5 10^3/uL (4.8-10.8)
[2023-07-24 07:22] LABS: Blood Urea Nitrogen 30 mg/dl (7-17); Calcium 10.2 mg/dl (8.4-10.2); Carbon Dioxide 24 mmol/L (22-30); Chloride 100 mmol/L (98-107); Estimated Creatinine Clearance 55 ml/min; Glucose 128 mg/dl (70-99); Sodium 131 mmol/L (135-145); eGFR > 60.00
[2023-07-24] MEDS: DUONEB 3 ML INH ×4 (07:30→19:42)
[2023-07-24] MEDS: ADVAIR HFA 115/21 MCG INHALER 1 PUFF INH ×2 (07:31→19:42)
[2023-07-24 07:50] VITALS: BP 135/91
[2023-07-24] MEDS: TESSALON PERLES 200 MG PO ×3 (09:13→21:24)
[2023-07-24] MEDS: MUCINEX 1200 MG PO ×2 (09:13→21:24)
[2023-07-24] MEDS: THERAGRAN 1 TABLET PO (09:13)
[2023-07-24] MEDS: VALTREX 500 MG PO (09:13)
[2023-07-24] MEDS: FEOSOL 325 MG PO (09:13)
[2023-07-24] MEDS: PROTONIX 40 MG PO ×2 (09:13→21:24)
[2023-07-24] MEDS: OSCAL 500 + D 500 MG PO (09:14)
[2023-07-24] MEDS: MYCOSTATIN ORAL SUSPENSION 5 ML PO ×4 (09:14→21:24)
[2023-07-24] MEDS: VITAMIN B-12 1000 MCG PO (09:14)
--- NOTE | 2023-07-24 09:55 | PTOTSP ---
Speech Language Pathology
Pt seen for clinical bedside swallow evaluation. VSE completed 10/21/13 with recommendations for dysphagia 3 solids/honey-thick liquids. Pt was upgraded during admission to regular solids/thin liquids with use of chin tuck at bedside. Pt reported
that since that time, she has been consuming regular solids/thin liquids, but thickens liquids at times. She was unable to explain how often or when she thickens.
P.O. trials of thin liquids via cup with use of chin tuck and regular solids provided. Adequate mastication, bolus formation, and A-P transit noted with no oral residue. No overt signs of aspiration. Reviewed recommendation for use of chin tuck.
Discussed that since pt has not had recent PNA until now (last in October 2019), will defer on repeat instrumental swallowing assessments. Pt in agreement.
Recommend:
(1) Regular solids/thin liquids
(2) Aspiration precautions: sit upright, slow rate, chin tuck with liquids, single sips
(3) Meds as tolerated
(4) HOMOEOPATH to sign off. Please reconsult as indicated
--- NOTE | 2023-07-24 12:26 | W.PN.HOSP.TC ---
Today's Communication/Plan
-
Monitor vital signs and see plan
Continue with steroids, nebs
Speech to evaluate
Wean oxygen as tolerated
PT/OT
Daughter updated over the phone
Assessment / Plan
Assessment / Plan
General: Comfortable, Conversant, Fever and Chills
HEENT: NormoCephalic, Anicteric, PERRLA, [place] Conjunctivae and Other (Chronic left upper eyelid droop no active shingles lesions)
Respiratory: Rhonchi (Right lower lung)
Cardiac: S1/S2 and Tachycardia
GI: Soft, Non Tender, Non Distended, Normal Bowel Sounds
Musculoskeletal: No Edema
Skin: Warm and Dry; No Rash or Jaundice
Neuro: AO x 3, No Motor Deficits, Nonfocal/grossly intact
Psych: Calm
Sepsis 2/2 Right lung pneumonia
Acute hypoxic respiratory failure secondary to above, wean oxygen as tolerated
suspect acute asthma exacerbation 2/2 above
cw IV steroids;nebs
bcx NGTD
COVID/Flu -negative
-Sputum culture
-Incentive spirometry
-Tylenol as needed fever
-IV Rocephin, Zithromax
Legionella, strep neg
CXR: Mid to right lower lung PNA
speech evaluation
Leukocytosis secondary to steroids
Oral thrush
cw nystatin
#Hypokalemia
resolved
Hyponatremia
Monitor
#Paroxysmal A-fib
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
#GERD
# GI bleed hx
#distal reflux esophagitis
Continue Protonix 40 mg twice daily
#HTN�benign
-Continue losartan 100 mg
-Hold HCTZ 12.5 Mg
#Chronic pain
Opioid use with dependence
Continue morphine 30 mg every 8 hours severe pain, 15 mg 4 times daily as needed
monitor for sedation
#Chronic anemia -B12 and iron deficiency
#DVT with IVC filter
#TBI, C1 fracture, subarachnoid hemorrhage
#Arthritis
-Continue calcium plus D
Anxiety, depression
-No reported meds
Unfortunately patient spouse recently , monitor
#Insomnia
Hold Ambien
#Chronic left eye upper lid droop
#Reports history of shingles left eye 20 years ago
-Takes valacyclovir 500 mg daily
DVT prophylaxis
SCDs; lovenox
DNR
I spent a total of 52 minutes with the patient or on the floor. More than 50% of this time involved counseling and coordination of care.
Anticipated Discharge: 24 - 48 hours
Subjective/Interval History
-
Date of Service: July 24, 2023
denies pain
Objective Data
-
Labs:
Laboratory Results
07/24/23
06:25
WBC 19.5 H
Hgb 12.3
Hct 34.2 L
Plt Count 366 D
Sodium 131 L
Potassium 4.0
Chloride 100
Carbon Dioxide 24
BUN 30 H
Creatinine 0.7
Glucose 128 H
Calcium 10.2
Vital Signs:
Vital Signs
Temp Pulse Resp BP Pulse Ox
97.7 F 88 16 135/91 100
07/24/23 07:50 07/24/23 11:22 07/24/23 11:22 07/24/23 07:50 07/24/23 07:50
I&O
07/23/23 07/24/23 07/25/23
06:59 06:59 06:59
Intake Total 300 / 300 960 / 960
Balance 300 / 300 960 / 960
[2023-07-24 16:21] VITALS: BP 151/89
[2023-07-24] MEDS: LOVENOX 40 MG SC (17:39)
[2023-07-24] MEDS: ZITHROMAX 500 MG PO (21:24)
[2023-07-24] MEDS: STERILE WATER FOR INJECTION 10 ML IV (21:24)
[2023-07-24] MEDS: ROCEPHIN 1000 MG IV (21:24)
[2023-07-24] MEDS: FLUSH (NSS) 2 FLUSH IV (21:25)
[2023-07-24 23:00] VITALS: BP 145/102
--- NOTE | 2023-07-25 00:39 | PTCARENOTE ---
Pt bladder scanned, result>400. 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 Pt instructed to attempt to sit on BSC or will have to be straight cathed, pt stated, 'You will not be doing either of those'. Pt refused. This RN informed pt
bladder will be rescanned throughout shift.
[2023-07-25] MEDS: DECADRON 4 MG IV ×3 (02:31→21:05)
[2023-07-25] MEDS: FLUSH (NSS) 2 FLUSH IV ×2 (02:31→21:07)
[2023-07-25] MEDS: MS CONTIN (EXTENDED RELEASE) 30 MG PO ×3 (04:53→21:04)
[2023-07-25] MEDS: ADVAIR HFA 115/21 MCG INHALER 1 PUFF INH ×2 (07:30→17:59)
[2023-07-25 07:51] VITALS: BP 130/71
[2023-07-25] MEDS: FEOSOL 325 MG PO (08:14)
[2023-07-25] MEDS: VALTREX 500 MG PO (08:14)
[2023-07-25] MEDS: VITAMIN B-12 1000 MCG PO (08:14)
[2023-07-25] MEDS: MUCINEX 1200 MG PO ×2 (08:14→21:05)
[2023-07-25] MEDS: MYCOSTATIN ORAL SUSPENSION 5 ML PO ×4 (08:14→21:05)
[2023-07-25] MEDS: OSCAL 500 + D 500 MG PO (08:14)
[2023-07-25] MEDS: PROTONIX 40 MG PO ×2 (08:14→21:05)
[2023-07-25] MEDS: THERAGRAN 1 TABLET PO (08:14)
[2023-07-25] MEDS: TESSALON PERLES 200 MG PO ×3 (08:20→21:05)
[2023-07-25 09:47] LABS: % Basophils 0.2 % (0-2); % Immature Granulocytes 1.7 % (0-0.5); % Lymphocytes 5.1 % (20.5-51.1); % Monocytes 2.8 % (1.7-9.3); % Neutrophils 90.2 % (42.2-75.2); Absolute Immature Granulocytes 0.4 10^3/uL (0-0.05); Absolute Lymphocytes 1.1 10^3/uL (1.2-3.4); Absolute Monocytes 0.6 10^3/uL (0.1-0.6); Absolute Neutrophils 19.5 10^3/uL (1.4-6.5); Hematocrit 33.5 % (37.0-47.0); Hemoglobin 12.1 g/dL (12.0-16.0); Mean Corp Hgb Conc. 36.1 g/dL (33.0-37.0); Mean Corpuscular Volume 91.3 fL (81.0-99.0); Mean Platelet Volume 11.7 fL (7.4-10.4); Nucleated Red Blood Cells % 0 %; Platelet Count 363 10^3/uL (130-400); Red Blood Cell Count 3.67 10^6/uL (4.20-5.40); Red Cell Dist. Width 13.2 % (11.5-14.5); White Blood Cell Count 21.6 10^3/uL (4.8-10.8)
[2023-07-25 10:59] LABS: Blood Urea Nitrogen 37 mg/dl (7-17); Carbon Dioxide 20 mmol/L (22-30); Chloride 101 mmol/L (98-107); Estimated Creatinine Clearance 64 ml/min; Glucose 118 mg/dl (70-99); Potassium 4.3 mmol/L (3.5-5.1); Sodium 131 mmol/L (135-145); eGFR > 60.00
--- NOTE | 2023-07-25 11:23 | W.PN.HOSP.TC ---
Today's Communication/Plan
-
Monitor vitals
See plan
Wean Decadron today
Continue with nebs
Laxatives
Bladder scan as needed
Continue antibiotics
Monitor leukocytosis
Assessment / Plan
Assessment / Plan
General: Comfortable, Conversant, Fever and Chills
HEENT: NormoCephalic, Anicteric, PERRLA, [place] Conjunctivae and Other (Chronic left upper eyelid droop no active shingles lesions)
Respiratory: Rhonchi (Right lower lung)
Cardiac: S1/S2 and Tachycardia
GI: Soft, Non Tender, Non Distended, Normal Bowel Sounds
Musculoskeletal: No Edema
Skin: Warm and Dry; No Rash or Jaundice
Neuro: AO x 3, No Motor Deficits, Nonfocal/grossly intact
Psych: Calm
Sepsis 2/2 Right lung pneumonia
Acute hypoxic respiratory failure secondary to above, wean oxygen as tolerated
suspect acute asthma exacerbation 2/2 above
cw IV steroids, wean to 4 Q12;nebs
bcx NGTD
COVID/Flu -negative
-Sputum culture
-Incentive spirometry
-Tylenol as needed fever
-IV Rocephin, Zithromax
Legionella, strep neg
CXR: Mid to right lower lung PNA
speech evaluation; rec reg with thin
Leukocytosis secondary to steroids
Oral thrush
cw nystatin
#Hypokalemia
resolved
Hyponatremia
Monitor
#Paroxysmal A-fib
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
Intermittent urinary retention
Bladder scan, straight cath as needed
Constipation
Laxatives
#GERD
# GI bleed hx
#distal reflux esophagitis
Continue Protonix 40 mg twice daily
#HTN�benign
-Continue losartan 100 mg
-Hold HCTZ 12.5 Mg
#Chronic pain
Opioid use with dependence
Continue morphine 30 mg every 8 hours severe pain, 15 mg 4 times daily as needed
monitor for sedation
#Chronic anemia -B12 and iron deficiency
#DVT with IVC filter
#TBI, C1 fracture, subarachnoid hemorrhage
#Arthritis
-Continue calcium plus D
Anxiety, depression
-No reported meds
Unfortunately patient spouse recently , monitor
#Insomnia
Hold Ambien
#Chronic left eye upper lid droop
#Reports history of shingles left eye 20 years ago
-Takes valacyclovir 500 mg daily
DVT prophylaxis
SCDs; lovenox
DNR
I spent a total of 53 minutes with the patient or on the floor. More than 50% of this time involved counseling and coordination of care.
Anticipated Discharge: 24 - 48 hours
Subjective/Interval History
-
Date of Service: July 25, 2023
denies pain
Objective Data
-
Labs:
Laboratory Results
07/25/23
08:47
WBC 21.6 H
Hgb 12.1
Hct 33.5 L
Plt Count 363
Sodium 131 L
Potassium 4.3
Chloride 101
Carbon Dioxide 20 L
BUN 37 H
Creatinine 0.6
Glucose 118 H
Calcium 10.0
Vital Signs:
Vital Signs
Temp Pulse Resp BP Pulse Ox
97.5 F 105 18 130/71 97
07/25/23 07:51 07/25/23 07:51 07/25/23 07:51 07/25/23 07:51 07/25/23 07:51
I&O
07/24/23 07/25/23 07/26/23
06:59 06:59 06:59
Intake Total 960 / 960 300 / 300
Output Total 900 / 900
Balance 960 / 960 -600 / -600
[2023-07-25] MEDS: COLACE 100 MG PO ×2 (12:01→21:05)
[2023-07-25 14:52] VITALS: BP 136/95
--- NOTE | 2023-07-25 14:57 | CM ---
Addendum entered by Babs Vazquez 07/25/23 15:15:
Met with patient at bedside; explained that PT recommended SNF @ discharge
Provided list of facilities to identify preferences. Patient said she would discuss with her daughter and identify her preferences
Will follow up and submit referrals
Original Note:
Chart reviewed; patient refused PT session today
PT Post acute recommendation is SNF
[2023-07-25 15:34] VITALS: BP 148/107; BP 153/95; BP 159/109; BP 164/126; PULSE 136; PULSE 96; O2SAT 98
[2023-07-25] MEDS: MORPHINE SULFATE 15 MG PO (16:34)
[2023-07-25] MEDS: LOVENOX 40 MG SC (18:18)
[2023-07-25] MEDS: STERILE WATER FOR INJECTION 10 ML IV (21:04)
[2023-07-25] MEDS: ZITHROMAX 500 MG PO (21:05)
[2023-07-25] MEDS: ROCEPHIN 1000 MG IV (21:05)
[2023-07-25 23:08] VITALS: BP 134/82
[2023-07-26] MEDS: MS CONTIN (EXTENDED RELEASE) 30 MG PO ×3 (05:04→20:06)
[2023-07-26 07:44] VITALS: BP 146/94
[2023-07-26] MEDS: ADVAIR HFA 115/21 MCG INHALER 1 PUFF INH ×2 (07:52→19:55)
[2023-07-26] MEDS: COLACE 100 MG PO ×2 (08:07→20:06)
[2023-07-26] MEDS: MUCINEX 1200 MG PO ×2 (08:07→20:06)
[2023-07-26] MEDS: TESSALON PERLES 200 MG PO ×3 (08:07→21:29)
[2023-07-26] MEDS: PROTONIX 40 MG PO ×2 (08:07→20:06)
[2023-07-26] MEDS: MYCOSTATIN ORAL SUSPENSION 5 ML PO ×4 (08:07→21:29)
[2023-07-26] MEDS: MIRALAX 17 GRAMS PO (08:07)
[2023-07-26] MEDS: OSCAL 500 + D 500 MG PO (08:07)
[2023-07-26] MEDS: THERAGRAN 1 TABLET PO (08:08)
[2023-07-26] MEDS: DECADRON 4 MG IV ×2 (08:08→20:06)
[2023-07-26] MEDS: VITAMIN B-12 1000 MCG PO (08:08)
[2023-07-26] MEDS: VALTREX 500 MG PO (08:08)
[2023-07-26] MEDS: FEOSOL 325 MG PO (08:08)
[2023-07-26 09:47] LABS: % Basophils 0.2 % (0-2); % Immature Granulocytes 1.5 % (0-0.5); % Lymphocytes 6.2 % (20.5-51.1); % Monocytes 2.8 % (1.7-9.3); % Neutrophils 89.3 % (42.2-75.2); Absolute Basophils 0.1 10^3/uL (0-0.2); Absolute Immature Granulocytes 0.3 10^3/uL (0-0.05); Absolute Lymphocytes 1.3 10^3/uL (1.2-3.4); Absolute Monocytes 0.6 10^3/uL (0.1-0.6); Absolute Neutrophils 18.7 10^3/uL (1.4-6.5); Hematocrit 35.2 % (37.0-47.0); Hemoglobin 12.6 g/dL (12.0-16.0); Mean Corp Hgb Conc. 35.8 g/dL (33.0-37.0); Mean Corpuscular Hgb 32.7 pg (27.0-31.0); Mean Corpuscular Volume 91.4 fL (81.0-99.0); Mean Platelet Volume 11.4 fL (7.4-10.4); Nucleated Red Blood Cells % 0.1 %; Platelet Count 411 10^3/uL (130-400); Red Blood Cell Count 3.85 10^6/uL (4.20-5.40); Red Cell Dist. Width 13.3 % (11.5-14.5); White Blood Cell Count 20.9 10^3/uL (4.8-10.8)
[2023-07-26 09:56] LABS: Blood Urea Nitrogen 42 mg/dl (7-17); Calcium 10.4 mg/dl (8.4-10.2); Carbon Dioxide 22 mmol/L (22-30); Chloride 100 mmol/L (98-107); Estimated Creatinine Clearance 64 ml/min; Glucose 125 mg/dl (70-99); Potassium 4.7 mmol/L (3.5-5.1); Sodium 131 mmol/L (135-145); eGFR > 60.00
--- NOTE | 2023-07-26 11:43 | W.PN.HOSP.TC ---
Today's Communication/Plan
-
Monitor vital signs see plan
PT/OT, needs SNF
Continue with antibiotic
Continue with nebs, Decadron
1 L IV fluid today
Assessment / Plan
Assessment / Plan
General: Comfortable, Conversant, Fever and Chills
HEENT: NormoCephalic, Anicteric, PERRLA, [place] Conjunctivae and Other (Chronic left upper eyelid droop no active shingles lesions)
Respiratory: Rhonchi (Right lower lung)
Cardiac: S1/S2 and Tachycardia
GI: Soft, Non Tender, Non Distended, Normal Bowel Sounds
Musculoskeletal: No Edema
Skin: Warm and Dry; No Rash or Jaundice
Neuro: AO x 3, No Motor Deficits, Nonfocal/grossly intact
Psych: Calm
Sepsis 2/2 Right lung pneumonia
Acute hypoxic respiratory failure secondary to above, wean oxygen as tolerated
suspect acute asthma exacerbation 2/2 above
cw IV steroids, wean to 4 Q12;nebs
bcx NGTD
COVID/Flu -negative
-Sputum culture
-Incentive spirometry
-Tylenol as needed fever
-IV Rocephin, Zithromax
Legionella, strep neg
CXR: Mid to right lower lung PNA
speech evaluation; rec reg with thin
Leukocytosis secondary to steroids; monitor
Oral thrush
cw nystatin
#Hypokalemia
resolved
Hyponatremia
Monitor
#Paroxysmal A-fib
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
Intermittent urinary retention
Bladder scan, straight cath as needed
Pain mild hypercalcemia
Gentle hydration
Constipation
Laxatives
#GERD
# GI bleed hx
#distal reflux esophagitis
Continue Protonix 40 mg twice daily
#HTN�benign
-Continue losartan 100 mg
-Hold HCTZ 12.5 Mg
#Chronic pain
Opioid use with dependence
Continue morphine 30 mg every 8 hours severe pain, 15 mg 4 times daily as needed
monitor for sedation
#Chronic anemia -B12 and iron deficiency
#DVT with IVC filter
#TBI, C1 fracture, subarachnoid hemorrhage
#Arthritis
-Continue calcium plus D
Anxiety, depression
-No reported meds
Unfortunately patient spouse recently , monitor
#Insomnia
Hold Ambien
#Chronic left eye upper lid droop
#Reports history of shingles left eye 20 years ago
-Takes valacyclovir 500 mg daily
DVT prophylaxis
SCDs; lovenox
DNR
Anticipated Discharge: Within 24 hours
Subjective/Interval History
-
Date of Service: July 26, 2023
Denies pain
Objective Data
-
Labs:
Laboratory Results
07/26/23
08:58
WBC 20.9 H
Hgb 12.6
Hct 35.2 L
Plt Count 411 H
Sodium 131 L
Potassium 4.7
Chloride 100
Carbon Dioxide 22
BUN 42 H
Creatinine 0.6
Glucose 125 H
Calcium 10.4 H
Vital Signs:
Vital Signs
Temp Pulse Resp BP Pulse Ox
97.5 F 90 16 146/94 97
07/26/23 07:44 07/26/23 07:54 07/26/23 07:54 07/26/23 07:44 07/26/23 07:54
I&O
07/25/23 07/26/23 07/27/23
06:59 06:59 06:59
Intake Total 300 / 300 640 / 640
Output Total 900 / 900 300 / 300
Balance -600 / -600 340 / 340
[2023-07-26] MEDS: NSS 1000 IV (12:13)
--- NOTE | 2023-07-26 12:37 | CM ---
Met with patient at bedside
Patient reviewed list of SNF facilities. Preferences are #1 [facility]; #2 [facility]; #3 [facility]
Referrals sent via [facility]
Plan: discharge to SNF when stable for discharge and bed is available
[2023-07-26 15:27] VITALS: BP 157/107
[2023-07-26 16:46] VITALS: BP 132/88
[2023-07-26] MEDS: LOVENOX 40 MG SC (17:27)
[2023-07-26] MEDS: ZITHROMAX 500 MG PO (21:29)
[2023-07-26] MEDS: ROCEPHIN 1000 MG IV (21:30)
[2023-07-26] MEDS: STERILE WATER FOR INJECTION 10 ML IV (21:30)
[2023-07-26 23:00] VITALS: BP 137/96
[2023-07-27] MEDS: DUONEB 3 ML INH (01:48)
[2023-07-27] MEDS: MS CONTIN (EXTENDED RELEASE) 30 MG PO ×3 (03:58→20:04)
[2023-07-27] MEDS: MORPHINE SULFATE 15 MG PO (06:15)
[2023-07-27 07:00] VITALS: BP 143/105
[2023-07-27 07:03] LABS: % Basophils 0.2 % (0-2); % Immature Granulocytes 1.9 % (0-0.5); % Lymphocytes 6.8 % (20.5-51.1); % Monocytes 2.9 % (1.7-9.3); % Neutrophils 88.2 % (42.2-75.2); Absolute Immature Granulocytes 0.4 10^3/uL (0-0.05); Absolute Lymphocytes 1.3 10^3/uL (1.2-3.4); Absolute Monocytes 0.5 10^3/uL (0.1-0.6); Absolute Neutrophils 16.4 10^3/uL (1.4-6.5); Hematocrit 36.2 % (37.0-47.0); Hemoglobin 12.6 g/dL (12.0-16.0); Mean Corp Hgb Conc. 34.8 g/dL (33.0-37.0); Mean Corpuscular Volume 94.8 fL (81.0-99.0); Mean Platelet Volume 11.7 fL (7.4-10.4); Nucleated Red Blood Cells % 0.3 %; Platelet Count 389 10^3/uL (130-400); Red Blood Cell Count 3.82 10^6/uL (4.20-5.40); Red Cell Dist. Width 13.2 % (11.5-14.5); White Blood Cell Count 18.6 10^3/uL (4.8-10.8)
[2023-07-27 07:10] LABS: Blood Urea Nitrogen 42 mg/dl (7-17); Calcium 9.6 mg/dl (8.4-10.2); Carbon Dioxide 20 mmol/L (22-30); Chloride 102 mmol/L (98-107); Estimated Creatinine Clearance 64 ml/min; Glucose 111 mg/dl (70-99); Potassium 4.9 mmol/L (3.5-5.1); Sodium 130 mmol/L (135-145); eGFR > 60.00
[2023-07-27] MEDS: ADVAIR HFA 115/21 MCG INHALER 1 PUFF INH ×2 (08:31→19:05)
[2023-07-27] MEDS: DECADRON 4 MG IV ×2 (09:04→20:04)
[2023-07-27] MEDS: MYCOSTATIN ORAL SUSPENSION 5 ML PO ×4 (09:04→21:43)
[2023-07-27] MEDS: OSCAL 500 + D 500 MG PO (09:04)
[2023-07-27] MEDS: TESSALON PERLES 200 MG PO ×3 (09:04→21:43)
[2023-07-27] MEDS: COLACE 100 MG PO ×2 (09:05→20:04)
[2023-07-27] MEDS: MUCINEX 1200 MG PO ×2 (09:05→20:04)
[2023-07-27] MEDS: PROTONIX 40 MG PO ×2 (09:05→20:04)
[2023-07-27] MEDS: VITAMIN B-12 1000 MCG PO (09:05)
[2023-07-27] MEDS: FEOSOL 325 MG PO (09:05)
[2023-07-27] MEDS: THERAGRAN 1 TABLET PO (09:05)
[2023-07-27] MEDS: VALTREX 500 MG PO (09:05)
[2023-07-27] MEDS: MIRALAX 17 GRAMS PO (09:06)
--- NOTE | 2023-07-27 10:36 | CM ---
Reviewed chart, thus far, [facility] has offered acceptance. Have not as of yet heard from other facilities requested/faxed.
Will review with patient.
Plan: Case management will continue to follow and assist with discharge planning. SNF when stable. Will f/u with patient to review acceptance.
--- NOTE | 2023-07-27 12:20 | W.PN.HOSP.TC ---
Today's Communication/Plan
-
Acapella
Incentive spirometry
Assessment / Plan
Assessment / Plan
Gen-AAOx3, NAD
HEENT-NC, AT, anicteric, clear oral mm
Neck-supple
CV-reg, no M, +S1/S2
Lungs-bilateral rhonchi, wheezing
Abd-soft, NT, ND
Ext-no edema
Musculoskeletal-no cyanosis, clubbing
Skin-warm and dry
Neuro-grossly non-focal
Psych-calm, cooperative
Acute hypoxic respiratory insufficiency -due to pneumonia, acute asthma exacerbation. Oxygenation improved.
Sepsis due to right lung community-acquired pneumonia -day 7 of antibiotics.
Acute asthma exacerbation -due to pneumonia. Continue steroids, nebs.
Oral thrush
cw nystatin
Hypokalemia -resolved
Hyponatremia -counts are stable. HCTZ discontinued.
Paroxysmal A-fib
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
Intermittent urinary retention
Bladder scan, straight cath as needed
Constipation
Laxatives
GERD
GI bleed hx
distal reflux esophagitis
Continue Protonix 40 mg twice daily
Essential hypertension
-Continue losartan 100 mg
-Hold HCTZ 12.5 Mg due to hyponatremia. Would not resume on discharge.
Chronic pain syndrome/chronic opiate dependence -
Continue morphine 30 mg every 8 hours severe pain, 15 mg 4 times daily as needed
monitor for sedation
Chronic anemia -B12 and iron deficiency. Hemoglobin normalized.
DVT with IVC filter
TBI, C1 fracture, subarachnoid hemorrhage
Arthritis
-Continue calcium plus D
Anxiety, depression
-No reported meds
Unfortunately patient spouse recently , monitor
Chronic insomnia
Hold Ambien
Chronic left eye upper lid droop
Reports history of shingles left eye 20 years ago
-Takes valacyclovir 500 mg daily
DVT prophylaxis
SCDs; lovenox
DNR
Dispo -needs SNF when medically stable.
Anticipated Discharge: Within 24 hours
Subjective/Interval History
-
Date of Service: July 27, 2023
Patient seen and examined. Complaining of cough and shortness of breath.
Objective Data
-
Labs:
Laboratory Results
07/27/23
06:21
WBC 18.6 H
Hgb 12.6
Hct 36.2 L
Plt Count 389
Sodium 130 L
Potassium 4.9
Chloride 102
Carbon Dioxide 20 L
BUN 42 H
Creatinine 0.6
Glucose 111 H
Calcium 9.6
Vital Signs:
Vital Signs
Temp Pulse Resp BP Pulse Ox
97.2 F 104 16 143/105 97
07/27/23 07:00 07/27/23 08:38 07/27/23 08:38 07/27/23 07:00 07/27/23 08:38
I&O
07/26/23 07/27/23 07/28/23
06:59 06:59 06:59
Intake Total 640 / 640 1640 / 1640
Output Total 300 / 300 800 / 800
Balance 340 / 340 840 / 840
Review of Systems
-
History Source: Patient
All other systems: Reviewed and negative
[2023-07-27 12:51] VITALS: BP 155/103; PULSE 63; O2SAT 96
[2023-07-27 15:00] VITALS: BP 149/109
[2023-07-27 15:28] VITALS: BP 149/109; PULSE 99; O2SAT 100
[2023-07-27] MEDS: LOVENOX 40 MG SC (18:39)
[2023-07-27] MEDS: ZITHROMAX 500 MG PO (21:43)
[2023-07-27] MEDS: STERILE WATER FOR INJECTION 10 ML IV (21:43)
[2023-07-27] MEDS: ROCEPHIN 1000 MG IV (21:43)
[2023-07-27 22:18] VITALS: BP 126/98
[2023-07-28] MEDS: MS CONTIN (EXTENDED RELEASE) 30 MG PO ×3 (04:18→20:17)
[2023-07-28] MEDS: ADVAIR HFA 115/21 MCG INHALER 1 PUFF INH ×2 (07:13→19:23)
[2023-07-28 08:01] VITALS: BP 143/98
[2023-07-28] MEDS: TESSALON PERLES 200 MG PO ×3 (08:13→22:22)
[2023-07-28] MEDS: THERAGRAN 1 TABLET PO (08:13)
[2023-07-28] MEDS: MIRALAX 17 GRAMS PO (08:13)
[2023-07-28] MEDS: PROTONIX 40 MG PO ×2 (08:13→20:16)
[2023-07-28] MEDS: FEOSOL 325 MG PO (08:13)
[2023-07-28] MEDS: COLACE 100 MG PO ×2 (08:13→20:17)
[2023-07-28] MEDS: MYCOSTATIN ORAL SUSPENSION 5 ML PO ×4 (08:13→22:22)
[2023-07-28] MEDS: MUCINEX 1200 MG PO ×2 (08:13→20:16)
[2023-07-28] MEDS: VALTREX 500 MG PO (08:14)
[2023-07-28] MEDS: OSCAL 500 + D 500 MG PO (08:14)
[2023-07-28] MEDS: VITAMIN B-12 1000 MCG PO (08:14)
[2023-07-28] MEDS: DECADRON 4 MG IV ×2 (08:14→20:17)
--- NOTE | 2023-07-28 09:27 | VATNOTE ---
Unsuccessful x2 attempts to place new PIV. Nikhil DENNISON RN to attempt.
--- NOTE | 2023-07-28 12:34 | W.PN.HOSP.TC ---
Today's Communication/Plan
-
Continue current care
Assessment / Plan
Assessment / Plan
Gen-AAOx3, NAD
HEENT-NC, AT, anicteric, clear oral mm
Neck-supple
CV-reg, no M, +S1/S2
Lungs-bilateral rhonchi, wheezing
Abd-soft, NT, ND
Ext-no edema
Musculoskeletal-no cyanosis, clubbing
Skin-warm and dry
Neuro-grossly non-focal
Psych-calm, cooperative
Acute hypoxic respiratory insufficiency -due to pneumonia, acute asthma exacerbation. Oxygenation improved.
Sepsis due to right lung community-acquired pneumonia -completed course of antibiotics.
Acute asthma exacerbation -due to pneumonia. Continue steroids, nebs. Still with significant wheezing on exam.
Oral thrush
cw nystatin
Hypokalemia -resolved
Hyponatremia -counts are stable. HCTZ discontinued.
Paroxysmal A-fib
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
Intermittent urinary retention
Bladder scan, straight cath as needed
Constipation
Laxatives
GERD
GI bleed hx
distal reflux esophagitis
Continue Protonix 40 mg twice daily
Essential hypertension
-Continue losartan 100 mg
-Hold HCTZ 12.5 Mg due to hyponatremia. Would not resume on discharge.
Chronic pain syndrome/chronic opiate dependence -
Continue morphine 30 mg every 8 hours severe pain, 15 mg 4 times daily as needed
monitor for sedation
Chronic anemia -B12 and iron deficiency. Hemoglobin normalized.
DVT with IVC filter
TBI, C1 fracture, subarachnoid hemorrhage
Arthritis
-Continue calcium plus D
Anxiety, depression
-No reported meds
Unfortunately patient spouse recently , monitor
Chronic insomnia
Hold Ambien
Chronic left eye upper lid droop
Reports history of shingles left eye 20 years ago
-Takes valacyclovir 500 mg daily
DVT prophylaxis
SCDs; lovenox
DNR
Dispo -needs SNF when medically stable. Hopefully in the next 24 to 48 hours.
I updated patient's daughter (Preethi) on the phone. All questions answered.
Anticipated Discharge: 24 - 48 hours
Subjective/Interval History
-
Date of Service: July 28, 2023
Patient seen and examined. Complaining of weakness.
Objective Data
-
Vital Signs:
Vital Signs
Temp Pulse Resp BP Pulse Ox
97.8 F 95 18 143/98 96
07/28/23 08:01 07/28/23 08:01 07/28/23 08:01 07/28/23 08:01 07/28/23 08:01
I&O
07/27/23 07/28/23 07/29/23
06:59 06:59 06:59
Intake Total 1640 / 1640 520 / 520
Output Total 800 / 800
Balance 840 / 840 520 / 520
Review of Systems
-
History Source: Patient
All other systems: Reviewed and negative
--- NOTE | 2023-07-28 13:48 | PN.CDI ---
CDI
- -
CDI:
Physician Documentation Request
Admit Date: 07/20/23 23:55
Dear Doctor Carlitos,
Please review the following and provide your response in the progress notes.
Documentation in the record on 07/21 through 07/25 includes the diagnosis of acute respiratory failure. Hospitalist notes: 'Sepsis 2/2 Right lung pneumonia'
'Acute hypoxic respiratory failure secondary to above.'
The patient's respiratory clinical indicators were the following:
07/19 ED Note: 'Patient to ED with complaint of cough and SOB.' 'Difficulty talking in full sentences.'
07/19-07/20: Resp. Rate 30-40, pt on 3-4LNC
07/21 RN note: 'Patient woke up and screamed she needed help, This RN went into patient's room. Patient very dyspneic and anxious. Pulse ox 89% on 2L o2.
Patient placed on 6L O2 but uable to breath through her nose. Non- rebreather placed on patient.'
Recognized standard criteria for respiratory failure includes:
(Source: [employer] Hospitalist Jan 2013)
ABGs (1 or more)
�PO2 <60 or RA SpO2 <91%
�PcO2 >50 and pH <7.35
�pO2 decrease or pcO2 increase by 10 mmHg from baseline if known Symptoms:
�Tachypnea, SOB, dyspnea
�Pallor or cyanosis
�Anxiety or restlessness
�Use of accessory muscles
�Retractions (grunting in newborns)
�Unable to speak in complete sentences
Supplemental O2 requirement of 40% (5LPM) or more Intubation is not required
Based on the above information and the recognized standard for respiratory failure could you please verify this diagnoses is still accurate and reflective of the patient�s condition to ensure quality of the medical record.
Please clarify in the Progress Notes:
Acute hypoxic Respiratory failure is/was present and is a clinical diagnosis
After study respiratory failure has been ruled out
Other
Use of terms such as suspected, likely, concern for, or probable (associated with a specific diagnosis that is being evaluated, monitored, or treated as if it exists) are acceptable and can be coded in the inpatient setting, when documented at the
time of discharge.
Thank you,
Hermelinda Castaneda RN, BSN
CDI Specialist
Available via [facility] [employer]
AvaiPlease use your independent medical judgment in providing your response.
[2023-07-28 16:03] VITALS: BP 153/115
--- NOTE | 2023-07-28 16:03 | CM ---
Reviewed chart, updated patient of the acceptance at [facility]. She stated that he daughter will ultimately determine where she goes and she is visiting facilities early this week. Will call patient's daughter to collaborate with her regarding
discharge planning.
Plan: Case management will continue to follow and assist with discharge planning. SNF when medically stable.
[2023-07-28] MEDS: LOVENOX 40 MG SC (16:59)
[2023-07-28 23:12] VITALS: BP 141/84
[2023-07-29] MEDS: MS CONTIN (EXTENDED RELEASE) 30 MG PO ×3 (04:58→19:48)
[2023-07-29 06:41] LABS: % Basophils 0.1 % (0-2); % Monocytes 2.5 % (1.7-9.3); % Neutrophils 89.4 % (42.2-75.2); Absolute Immature Granulocytes 0.2 10^3/uL (0-0.05); Absolute Monocytes 0.4 10^3/uL (0.1-0.6); Absolute Neutrophils 13.2 10^3/uL (1.4-6.5); Hemoglobin 12.5 g/dL (12.0-16.0); Mean Corp Hgb Conc. 34.7 g/dL (33.0-37.0); Mean Corpuscular Hgb 32.7 pg (27.0-31.0); Mean Corpuscular Volume 94.2 fL (81.0-99.0); Mean Platelet Volume 11.1 fL (7.4-10.4); Nucleated Red Blood Cells % 0 %; Platelet Count 346 10^3/uL (130-400); Red Blood Cell Count 3.82 10^6/uL (4.20-5.40); Red Cell Dist. Width 13.2 % (11.5-14.5); White Blood Cell Count 14.8 10^3/uL (4.8-10.8)
[2023-07-29 07:30] VITALS: BP 128/90
[2023-07-29] MEDS: MYCOSTATIN ORAL SUSPENSION 5 ML PO (07:41)
[2023-07-29] MEDS: TESSALON PERLES 200 MG PO ×3 (07:41→22:18)
[2023-07-29] MEDS: MIRALAX 17 GRAMS PO (07:41)
[2023-07-29] MEDS: MUCINEX 1200 MG PO ×2 (07:41→19:49)
[2023-07-29] MEDS: FEOSOL 325 MG PO (07:41)
[2023-07-29] MEDS: VITAMIN B-12 1000 MCG PO (07:41)
[2023-07-29] MEDS: VALTREX 500 MG PO (07:41)
[2023-07-29] MEDS: THERAGRAN 1 TABLET PO (07:41)
[2023-07-29] MEDS: PROTONIX 40 MG PO ×2 (07:41→19:49)
[2023-07-29] MEDS: OSCAL 500 + D 500 MG PO (07:41)
[2023-07-29] MEDS: COLACE 100 MG PO ×2 (07:41→19:49)
[2023-07-29] MEDS: DECADRON 4 MG IV ×2 (07:43→19:49)
[2023-07-29] MEDS: ADVAIR HFA 115/21 MCG INHALER 1 PUFF INH ×2 (08:10→19:14)
[2023-07-29] MEDS: DUONEB 3 ML INH (08:14)
[2023-07-29 08:36] LABS: ALT (SGPT) 42 U/L (0-35); AST (SGOT) 29 U/L (14-36); Albumin 3.2 g/dl (3.5-5.0); Alkaline Phosphatase 69 U/L (38-126); Blood Urea Nitrogen 37 mg/dl (7-17); Calcium 9.5 mg/dl (8.4-10.2); Carbon Dioxide 21 mmol/L (22-30); Chloride 102 mmol/L (98-107); Estimated Creatinine Clearance 64 ml/min; Glucose 100 mg/dl (70-99); Potassium 4.3 mmol/L (3.5-5.1); Sodium 131 mmol/L (135-145); Total Bilirubin 0.7 mg/dl (0.2-1.3); Total Protein 5.3 g/dl (6.3-8.2); eGFR > 60.00
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
[2023-07-29 13:35] VITALS: BP 154/104; BP 194/121; PULSE 86; O2SAT 99
[2023-07-29 13:43] VITALS: BP 154/106; BP 156/106; PULSE 111
[2023-07-29 15:30] VITALS: BP 149/100; BP 155/107
[2023-07-29] MEDS: LOVENOX 40 MG SC (17:02)
[2023-07-29] MEDS: PRED FORTE 1% EYE DROPS 1 DROP OPHTH ×2 (17:03→22:18)
[2023-07-29] MEDS: MORPHINE SULFATE 15 MG PO (18:03)
[2023-07-29 23:00] VITALS: BP 154/95
[2023-07-30] MEDS: MS CONTIN (EXTENDED RELEASE) 30 MG PO ×3 (03:50→19:57)
[2023-07-30 07:00] VITALS: BP 123/75
[2023-07-30] MEDS: ADVAIR HFA 115/21 MCG INHALER 1 PUFF INH ×2 (07:49→20:10)
[2023-07-30] MEDS: MORPHINE SULFATE 15 MG PO (07:51)
[2023-07-30] MEDS: FEOSOL 325 MG PO (07:52)
[2023-07-30] MEDS: MIRALAX 17 GRAMS PO (07:52)
[2023-07-30] MEDS: PROTONIX 40 MG PO ×2 (07:52→19:58)
[2023-07-30] MEDS: VITAMIN B-12 1000 MCG PO (07:52)
[2023-07-30] MEDS: VALTREX 500 MG PO (07:52)
[2023-07-30] MEDS: MUCINEX 1200 MG PO ×2 (07:52→19:57)
[2023-07-30] MEDS: PRED FORTE 1% EYE DROPS 1 DROP OPHTH ×3 (07:52→22:02)
[2023-07-30] MEDS: OSCAL 500 + D 500 MG PO (07:52)
[2023-07-30] MEDS: COLACE 100 MG PO ×2 (07:52→19:55)
[2023-07-30] MEDS: THERAGRAN 1 TABLET PO (07:53)
[2023-07-30] MEDS: DECADRON 4 MG IV ×2 (07:53→19:55)
[2023-07-30] MEDS: TESSALON PERLES 200 MG PO ×3 (07:53→22:03)
--- NOTE | 2023-07-30 10:37 | W.PN.HOSP.TC ---
Today's Communication/Plan
-
Discharge planning
Assessment / Plan
Assessment / Plan
Gen-AAOx3, NAD
HEENT-NC, AT, anicteric, clear oral mm
Neck-supple
CV-reg, no M, +S1/S2
Lungs-bilateral rhonchi, wheezing improving
Abd-soft, NT, ND
Ext-no edema
Musculoskeletal-no cyanosis, clubbing
Skin-warm and dry
Neuro-grossly non-focal
Psych-calm, cooperative
Acute hypoxic respiratory insufficiency -due to pneumonia, acute asthma exacerbation. Oxygenation improved. Encourage out of bed to chair, Acapella, incentive spirometer. Discussed with patient.
Sepsis due to right lung community-acquired pneumonia -completed course of antibiotics.
Acute asthma exacerbation -due to pneumonia. Continue steroids, nebs. Wheezing improving overall.
Oral thrush -resolved. Off nystatin now.
Hypokalemia -resolved
Hyponatremia -counts are stable. HCTZ discontinued.
Paroxysmal A-fib
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
Intermittent urinary retention
Bladder scan, straight cath as needed
Constipation
Laxatives
GERD
GI bleed hx
distal reflux esophagitis
Continue Protonix 40 mg twice daily
Essential hypertension
-Continue losartan 100 mg
-Hold HCTZ 12.5 Mg due to hyponatremia. Would not resume on discharge.
Chronic pain syndrome/chronic opiate dependence -
Continue morphine 30 mg every 8 hours severe pain, 15 mg 4 times daily as needed
monitor for sedation
Chronic anemia -B12 and iron deficiency. Hemoglobin normalized.
DVT with IVC filter
TBI, C1 fracture, subarachnoid hemorrhage
Arthritis
-Continue calcium plus D
Anxiety, depression
-No reported meds
Unfortunately patient spouse recently , monitor
Chronic insomnia
Hold Ambien
Chronic left eye upper lid droop -continue eyedrops.
Reports history of shingles left eye 20 years ago
-Takes valacyclovir 500 mg daily
DVT prophylaxis
SCDs; lovenox
DNR
Dispo -medically stable for discharge to SNF. Updated daughter on the phone. Case management aware.
Anticipated Discharge: Today
Subjective/Interval History
-
Date of Service: July 30, 2023
Patient seen and examined. Complaining of sleep disruption.
Objective Data
-
Vital Signs:
Vital Signs
Temp Pulse Resp BP Pulse Ox
97.8 F 85 20 123/75 95
07/30/23 07:00 07/30/23 07:53 07/30/23 07:53 07/30/23 07:00 07/30/23 07:53
I&O
07/29/23 07/30/23 07/31/23
06:59 06:59 06:59
Intake Total 720 / 720 840 / 840
Balance 720 / 720 840 / 840
Review of Systems
-
History Source: Patient
All other systems: Reviewed and negative
--- NOTE | 2023-07-30 11:27 | CM ---
Addendum entered by BENI Pate 07/30/23 15:24:
Received return call from an RN named, Bethanie Romero from patient's insurance ([employer] and formerly [facility]) She stated that all clinical can be faxed to, . She requested: Face Sheet, H&P, last progress note and therapy notes. She
stated that her phone number is [phone] option 8. Will fax all clinical to the number above.
Addendum entered by BENI Pate 07/30/23 13:48:
Placed a call to patient's insurance, [employer] and spoke with Tyrone, a textile machinery sales representative who took information and provided reference number for case, [id number]. She stated that a textile machinery sales representative will call for clinical information but could
not give an exact time of when. As this was the case, main number to CM was provided.
Original Note:
Reviewed chart, spoke with attending who stated that patient is medically stable for discharge. Placed a call to Pooja in admissions at [facility] who confirmed bed availability for patient.
Placed a call to patient's daughter who confirmed that she would like for patient to transfer to [facility].
Called Pooja back to update that patient's daughter is agreeable to [facility]. Will initiate auth. Pooja stated that NPIs are: For facility, [id number], Dr. Storey [id number].
Will call insurance company.
Plan: Case management will continue to follow and assist with discharge planning. Transfer to [facility] upon hopeful authorization.
[2023-07-30 15:00] VITALS: BP 147/92
[2023-07-30] MEDS: LOVENOX 40 MG SC (16:17)
--- NOTE | 2023-07-30 18:00 | PTCARENOTE ---
Pt irritable this shift, keeps telling staff that nobody comes to help her to the restroom or give her pain meds on time. RN explained patients pain medication regimen, safety, call light use, and bathroom privileges. RN has taken the patient to BR
this shift and all pain meds are given per order, on time this shift, see MAR for details.
[2023-07-30] MEDS: FLUSH (NSS) 2 FLUSH IV (19:56)
[2023-07-30 22:36] VITALS: BP 160/103
[2023-07-31 00:17] VITALS: BP 148/98
[2023-07-31] MEDS: MS CONTIN (EXTENDED RELEASE) 30 MG PO ×2 (04:11→11:12)
[2023-07-31 07:00] VITALS: BP 135/80
[2023-07-31] MEDS: ADVAIR HFA 115/21 MCG INHALER 1 PUFF INH (08:30)
[2023-07-31] MEDS: THERAGRAN 1 TABLET PO (08:47)
[2023-07-31] MEDS: VALTREX 500 MG PO (08:47)
[2023-07-31] MEDS: OSCAL 500 + D 500 MG PO (08:48)
[2023-07-31] MEDS: MUCINEX 1200 MG PO (08:48)
[2023-07-31] MEDS: COLACE 100 MG PO (08:48)
[2023-07-31] MEDS: VITAMIN B-12 1000 MCG PO (08:48)
[2023-07-31] MEDS: DECADRON 4 MG IV (08:48)
[2023-07-31] MEDS: FEOSOL 325 MG PO (08:48)
[2023-07-31] MEDS: PRED FORTE 1% EYE DROPS 1 DROP OPHTH (08:48)
[2023-07-31] MEDS: TESSALON PERLES 200 MG PO (08:48)
[2023-07-31] MEDS: PROTONIX 40 MG PO (08:48)
[2023-07-31] MEDS: MIRALAX 17 GRAMS PO (08:49)
--- NOTE | 2023-07-31 09:50 | CM ---
CM following re: discharge planning.
Reviewed pt's chart, met with pt.
According to MD pt is medically stable to be discharged today. Pt is aware, expressed her agreement. IMM reviewed, placed on chart, pt has a copy.
JOSHUA received a phone call from [facility] key account representative Bethanie and she confirmed that pt is approved for SNF level of care at [facility] for 5 initial days starting today 07/31/23 till 08/04/23 with NRD 08/04/23. Auth is:
[id number], reference #: [id number]. Reviewer Emely Aquino fax: [phone].
Auth information provided to [facility] liaison and she confirmed that pt is accepted for admission today.
will arrange ambulance, BLS. PMNC completed and left with
[facility] nursing report: [phone]
Discharge instructions fax: [phone].
D/C plan: [facility].
--- NOTE | 2023-07-31 09:56 | W.DS.TRANS ---
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
-
Discharge Instructions:
Discharge Diagnosis/Procedures Asthma exacerbation, sepsis, pneumonia,
hyponatremia
Diet 2 Gram Sodium,Low Fat,Low Cholesterol
Activity As tolerated,With assistance
Driving Restrictions Not until seen by your Dr
Bathing Restrictions None
Instructions:
Stand-Alone Forms:
Changes to Home Medications: No
Discharge Medications:
DC Medications w/original date entered in [facility]
acetaminophen 325 mg tablet 650 mg PO Q6HPRN PRN mild pain 11/24/18
albuterol sulfate 90 mcg/actuation aerosol inhaler 2 puff inhalation R Q4HPRN PRN sob 11/24/18
calcium carbonate 500 mg-vitamin D3 5 mcg (200 unit) tablet (Oyster Shell Calcium-Vitamin D3) 1 tab PO DAILY Supplement 11/24/18
cyclobenzaprine 10 mg tablet 5 mg PO TIDPRN PRN muscle spasm 11/24/18
glucosamine sulf dipot chlr,msm,chond 550 mg-C 30 mg-mayco 1 mg capsule (Glucosamine Chondroitin) 1 tab PO DAILY Supplement 11/24/18
multivitamin with folic acid 400 mcg tablet (Tab-A-Akanksha) 1 tab PO DAILY Supplement 11/24/18
pantoprazole 40 mg tablet,delayed release 40 mg PO BID #60 tabs 11/26/18
albuterol sulfate 2.5 mg/3 mL (0.083 %) solution for nebulization 2.5 mg inhalation R Q6HPRN PRN sob 11/02/19
cyanocobalamin (vitamin B-12) 1,000 mcg tablet 1,000 mcg PO DAILY 11/04/19
fluticasone propionate 115 mcg-salmeterol 21 mcg/actuation HFA inhaler (Advair HFA) 1 puff inhalation R BID Lung/Breathing Issues 07/20/23
sennosides 8.6 mg tablet (senna) 1 tab PO BID PRN constipation 07/20/23
valacyclovir 500 mg tablet 500 mg PO DAILY Shingles in eye many yrs ago 07/20/23
conjugated estrogens 0.3 mg tablet 0.3 mg PO DAILY Hormonal Agent 07/22/23
ferrous sulfate 325 mg (65 mg iron) tablet (Iron (ferrous sulfate)) 325 mg PO DAILY Supplement 07/22/23
medroxyprogesterone 2.5 mg tablet 1.25 mg PO DAILY Hormonal Agent 07/22/23
benzocaine 6 mg-menthol 10 mg lozenges (Chloraseptic Sore Throat) 1 holden PO Q4HPRN PRN sore throat #0 ea 07/30/23
benzonatate 100 mg capsule 200 mg (2 x 100 mg) PO TID PRN Cough #0 caps 07/30/23
docusate sodium 100 mg capsule 100 mg PO BID #0 caps 07/30/23
guaifenesin 600 mg tablet, extended release 12 hr 1,200 mg (2 x 600 mg) PO Q12 #0 tabs 07/30/23
morphine 15 mg immediate release tablet 15 mg PO QIDPRN PRN breakthrough pain #8 tabs 07/30/23
morphine 30 mg tablet,extended release 30 mg PO Q8H #6 tabs 07/30/23
polyethylene glycol 3350 17 gram oral powder packet (HealthyLax) 17 g PO DAILY #0 ea 07/30/23
prednisolone acetate 1 % eye drops,suspension 1 drp ophthalmic (eye) TID #10 mL 07/30/23
Home Medication Changes
Pending Results: No
[2023-07-31 11:21] VITALS: BP 139/91
== END 2023-07-31 12:41 | DRG 871 ==
LOC: 3 WEST ACU 23:55
PROVIDERS: Clinical Nurse Specialist Family Health; Internal Medicine; Nurse Practitioner; ADMITTING PHYSICIAN Hospitalist; ATTENDING PHYSICIAN Hospitalist; EMERGENCY PHYSICIAN Emergency Medicine; FAMILY PHYSICIAN Internal Medicine
DX: A41.9 Sepsis, unspecified organism (principal); J18.9 Pneumonia, unspecified organism; J96.01 Acute respiratory failure with hypoxia; J45.901 Unspecified asthma with (acute) exacerbation; B37.0 Candidal stomatitis; E87.1 Hypo-osmolality and hyponatremia; F11.20 Opioid dependence, uncomplicated; E87.6 Hypokalemia; Z66 Do not resuscitate; I48.0 Paroxysmal atrial fibrillation; K21.9 Gastro-esophageal reflux disease without esophagitis; G89.29 Other chronic pain; I10 Essential (primary) hypertension; Z11.52 Encounter for screening for COVID-19
CPT/HCPCS: 71046; 80048; 80053; 83605; 83880; 85025; 87040; 87070; 87077; 87186; 87205; 87449; 87502; 87811; 87899; 92610; 93005; 94640; 96361; 96374; 97116; 97530; 97535; 99285

== ENCOUNTER 2023-09-02 05:54 | Emergency (ER) | payer MEDICARE, SELFPAY ==
[2023-09-02 06:04] VITALS: BP 177/107
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
[2023-09-02 11:02] VITALS: BP 150/75
[2023-09-02 11:52] LABS: % Basophils 0.3 % (0-2); % Immature Granulocytes 0.3 % (0-0.5); % Monocytes 3.3 % (1.7-9.3); % Neutrophils 88.1 % (42.2-75.2); Absolute Basophils 0.1 10^3/uL (0-0.2); Absolute Immature Granulocytes 0.1 10^3/uL (0-0.05); Absolute Lymphocytes 1.4 10^3/uL (1.2-3.4); Absolute Monocytes 0.6 10^3/uL (0.1-0.6); Absolute Neutrophils 15.3 10^3/uL (1.4-6.5); Hematocrit 44.9 % (37.0-47.0); Hemoglobin 15.7 g/dL (12.0-16.0); Mean Corpuscular Hgb 32.6 pg (27.0-31.0); Mean Corpuscular Volume 93.2 fL (81.0-99.0); Nucleated Red Blood Cells % 0 %; Platelet Count 335 10^3/uL (130-400); Red Blood Cell Count 4.82 10^6/uL (4.20-5.40); Red Cell Dist. Width 14.4 % (11.5-14.5); White Blood Cell Count 17.4 10^3/uL (4.8-10.8)
[2023-09-02 12:06] LABS: ALT (SGPT) 12 U/L (0-35); AST (SGOT) 28 U/L (14-36); Albumin 4.8 g/dl (3.5-5.0); Alkaline Phosphatase 65 U/L (38-126); Blood Urea Nitrogen 17 mg/dl (7-17); Calcium 10.7 mg/dl (8.4-10.2); Carbon Dioxide 27 mmol/L (22-30); Chloride 102 mmol/L (98-107); Glucose 106 mg/dl (70-99); Potassium 3.2 mmol/L (3.5-5.1); Sodium 140 mmol/L (135-145); Total Bilirubin 1.2 mg/dl (0.2-1.3); Total Protein 7.1 g/dl (6.3-8.2); eGFR > 60.00
[2023-09-02 12:38] LABS: Lipase 145 U/L (23-300)
[2023-09-02 14:28] VITALS: BP 148/68
== END 2023-09-02 14:29 | disposition home or self-care (01) ==
LOC: EMR 05:54
PROVIDERS: Physician Assistant; EMERGENCY PHYSICIAN Emergency Medicine; FAMILY PHYSICIAN Internal Medicine
DX: K52.9 Noninfective gastroenteritis and colitis, unspecified (principal); R10.9 Unspecified abdominal pain; I10 Essential (primary) hypertension; J45.909 Unspecified asthma, uncomplicated; I48.0 Paroxysmal atrial fibrillation; M19.90 Unspecified osteoarthritis, unspecified site; G89.4 Chronic pain syndrome; M54.2 Cervicalgia; M54.9 Dorsalgia, unspecified; F41.9 Anxiety disorder, unspecified; F32.A Depression, unspecified; G43.909 Migraine, unspecified, not intractable, without status migrainosus; Z79.891 Long term (current) use of opiate analgesic; Z87.820 Personal history of traumatic brain injury; Z88.4 Allergy status to anesthetic agent; Z91.040 Latex allergy status; Z88.8 Allergy status to other drugs, medicaments and biological substances; Z91.048 Other nonmedicinal substance allergy status; Z86.718 Personal history of other venous thrombosis and embolism
CPT/HCPCS: 99285; 74177; 80053; 83690; 85025; 86850; 86900; 86901; Q9967

== ENCOUNTER 2023-10-03 14:07 | Emergency (ER) | payer MEDICARE, SELFPAY ==
[2023-10-03 14:14] VITALS: BP 143/78
--- NOTE | 2023-10-03 17:29 | ED.GENMED ---
History of Present Illness
General
Chief Complaint: Fall
Time Seen by Provider: 10/03/23 14:32
History of Present Illness
History of Present Illness:
73-year-old female presents to the emergency department for evaluation after a mechanical fall. She was getting out of an [employer] when she tripped over the curb and fell striking her forehead on the ground. Denies loss of consciousness. Currently
denies neck pain, nausea, or vomiting. Also notes a bruise with swelling to the left hand. Does not take anticoagulants
Past History
Past History
ED Past Medical History: Arrthythmia (Paroxysmal atrial fibrillation), Asthma, HTN, Other (Subarachnoid hemorrhage fracture C1, GI bleeding, Arthritis, PNA, Sepsis, questionable PE, Swallowing difficulty) and Other (Traumatic brain injury, C1
fracture, prior pneumonias. uveitis)
ED Past Surgical History: Appendectomy and Gynecological (Vaginal sling)
Social History
Tobacco: Non-smoker
Alcohol: Occasional
Drug: None
Personal:
Living: with family
Employment: Not employed
Family History
Family History: Other (Noncontributory)
Review of Systems
Review of Systems
Allergies reviewed?: Yes
All Other Systems: ROS reviewed and negative except as documented in HPI and ROS
Phy Exam
Physical Exam
Physical Exam:
GEN: Well appearing, NAD, WDWN
HEENT: Ecchymosis with small superficial hematoma to the central forehead ; oral mucosa moist, no scleral icterus, no nasal congestion
Cardiac: Regular rate
Lung: No respiratory distress, no tachypnea
MSK: Ecchymosis swelling to the left hand, no deformity
Skin: Good color, no pallor or jaundice, no rashes
Neuro: AO x3; CN II-XII grossly intact. BUE strength 5/5 in all alvarez, sensation intact and symmetric. BLE strength 5/5 in all alvarez, sensation intact and symmetric
Psych: Calm, cooperative
Course
Orders/Labs/Results
Orders:
Orders
10/03/23 14:58
CT Cervical Spine W/o Iv Contr Urgent
Comment:
Reason For Exam: fall, head strike
CT Head W/o Iv Contrast Urgent
Comment:
Reason For Exam: fall head strike
10/03/23 16:47
CR Hand - Left Min 3 Views Urgent
Comment:
Reason For Exam: fall injury
Vital Signs
Initial and Last Documented VS:
Initial Vital Signs
Temp Pulse Resp BP Pulse Ox
98.4 F 96 20 143/78 98
10/03/23 14:14 10/03/23 14:14 10/03/23 14:14 10/03/23 14:14 10/03/23 14:14
Last Documented Vital Signs
Temp Pulse Resp BP Pulse Ox
98.4 F 96 20 143/78 98
10/03/23 14:14 10/03/23 14:14 10/03/23 14:14 10/03/23 14:14 10/03/23 14:14
MDM/Problems Addressed
MDM/Problems Addressed:
CT of the head and cervical spine negative, x-ray of the left hand is negative. Discussed supportive care
*Critical Care Note
Total Time (30-74mins, 75-104mins- exclusive of procedures): Not Applicable
ED Attending Note
-
Portions of this chart may have been created with voice recognition software.� Occasional wrong word or��sound alike� substitutions may have occurred due to the inherent limitations of voice recognition software.
Discharge Plan
Departure
Patient Disposition: Home (Routine Discharge)
Date of Disposition: 10/03/23
Time of Disposition: 17:29
Patient with high blood pressure during this ER visit?: No
Discharge Problem:
Closed head injury, Contusion of hand, left
Instructions: Head Injury in Adults (DC)
Prescriptions:
No Action
Glucosamine Chondroitin 1 EACH capsule
1 tab PO DAILY
cyclobenzaprine 10 MG tablet
5 mg PO TIDPRN PRN (Reason: muscle spasm)
acetaminophen 325 MG tablet
650 mg PO Q6HPRN PRN (Reason: mild pain)
albuterol sulfate 1 PUFF HFA aerosol inhaler
2 puff inhalation R Q4HPRN PRN (Reason: sob)
calcium carbonate-vitamin D3 [Oyster Shell Calcium-Vit D3] 500 MG tablet
1 tab PO DAILY
multivitamin with folic acid [Tab-A-Akanksha] 1 TABLET tablet
1 tab PO DAILY
pantoprazole 40 MG tablet,delayed release (DR/EC)
40 mg PO BID Qty: 60 0RF
albuterol sulfate 2.5 MG/3 ML solution for nebulization
2.5 mg inhalation R Q6HPRN PRN (Reason: sob)
cyanocobalamin (vitamin B-12) 1,000 MCG tablet
1,000 mcg PO DAILY 0RF
valacyclovir 500 mg tablet
500 mg PO DAILY
fluticasone propion-salmeterol [Advair HFA] 115-21 mcg/actuation Hfa Aerosol Inhaler
1 puff INHALATION R BID
sennosides [senna] 1 TABLET tablet
1 tab PO BID PRN (Reason: constipation)
ferrous sulfate [Iron (ferrous sulfate)] 325 MG tablet
325 mg PO DAILY
medroxyprogesterone 2.5 mg Tablet
1.25 mg PO DAILY
conjugated estrogens 0.3 mg Tablet
0.3 mg PO DAILY
Chloraseptic Sore Throat 6-10 mg Lozenge
1 holden PO Q4HPRN PRN (Reason: sore throat) Qty: 0 0RF
docusate sodium 100 mg Capsule
100 mg PO BID Qty: 0 0RF
polyethylene glycol 3350 [HealthyLax] 17 gram Powder In Packet
17 g PO DAILY Qty: 0 0RF
morphine 30 mg Tablet Extended Release
30 mg PO Q8H Qty: 6 0RF
morphine 15 mg Tablet
15 mg PO QIDPRN PRN (Reason: breakthrough pain) Qty: 8 0RF
guaifenesin 600 mg Tablet Extended Release 12hr
1,200 mg PO Q12 Qty: 0 0RF
prednisolone acetate 1 % Drops,Suspension
1 drp ophthalmic (eye) TID Qty: 10 0RF
Rx Instructions:
one drop both eyes three times per day
benzonatate 100 mg Capsule
200 mg PO TID PRN (Reason: Cough) Qty: 0 0RF
amoxicillin-pot clavulanate 875-125 mg tablet
1 tab PO BID 7 Days Qty: 14 0RF
Referrals:
NONE,* [Family Provider] -
Interventions
Interventions:
*Risk Screen - Suicide Last Done: 10/03/23 14:15
*Neglect/Abuse Screening Last Done: 10/03/23 14:15
ED- Fall Risk Assessment Last Done: 10/03/23 14:24
*ED COVID-19 Vaccine History Last Done: 10/03/23 14:19
*Nursing Disposition Last Done: 10/03/23 17:38
ED-Musculoskeletal Assessment Last Done: 10/03/23 14:17
ED- Neurological Assessment Last Done: 10/03/23 14:17
ED-Skin Assessment Last Done: 10/03/23 14:20
Discharge Date and Time
Discharge Date/Time: 10/03/23 17:39
Print Language: TURKMEN
== END 2023-10-03 17:39 | disposition home or self-care (01) ==
LOC: EMR 14:07
PROVIDERS: EMERGENCY PHYSICIAN Emergency Medicine
DX: S09.90XA Unspecified injury of head, initial encounter (principal); S60.222A Contusion of left hand, initial encounter; W01.0XXA Fall on same level from slipping, tripping and stumbling without subsequent striking against object, initial encounter
CPT/HCPCS: 99285; 70450; 72125; 73130

== ENCOUNTER → 2023-12-07 12:45 | Outpatient (REF) | payer MEDICARE, SELFPAY | LOC: WOUND 12:45 | PROVIDERS: ATTENDING PHYSICIAN Surgery; FAMILY PHYSICIAN Internal Medicine | DX: L89.323 Pressure ulcer of left buttock, stage 3 (principal); F02.80 Dementia in other diseases classified elsewhere, unspecified severity, without behavioral disturbance, psychotic disturbance, mood disturbance, and anxiety; G47.19 Other hypersomnia; I60.9 Nontraumatic subarachnoid hemorrhage, unspecified; I10 Essential (primary) hypertension; G93.89 Other specified disorders of brain; Z86.718 Personal history of other venous thrombosis and embolism; S06.9XAD Unspecified intracranial injury with loss of consciousness status unknown, subsequent encounter; X58.XXXD Exposure to other specified factors, subsequent encounter | CPT/HCPCS: 11042; 99204 ==

== ENCOUNTER → 2023-12-14 14:02 | Outpatient (REF) | payer MEDICARE, SELFPAY | LOC: WOUND 14:02 | PROVIDERS: ATTENDING PHYSICIAN Surgery; FAMILY PHYSICIAN Internal Medicine | DX: L89.323 Pressure ulcer of left buttock, stage 3 (principal); F02.80 Dementia in other diseases classified elsewhere, unspecified severity, without behavioral disturbance, psychotic disturbance, mood disturbance, and anxiety; G47.19 Other hypersomnia; S06.9XAD Unspecified intracranial injury with loss of consciousness status unknown, subsequent encounter; I60.9 Nontraumatic subarachnoid hemorrhage, unspecified; I10 Essential (primary) hypertension; Z86.718 Personal history of other venous thrombosis and embolism; G93.89 Other specified disorders of brain; Z79.52 Long term (current) use of systemic steroids; X58.XXXD Exposure to other specified factors, subsequent encounter | CPT/HCPCS: 11042 ==

== ENCOUNTER 2023-12-15 07:30 | Emergency (ER) | payer MEDICARE, SELFPAY ==
[2023-12-15 07:34] VITALS: BP 146/103
[2023-12-15 07:35] VITALS: BP 146/103
[2023-12-15 07:48] LABS: % Basophils 1.1 % (0-2); % Eosinophils 1.9 % (0-6); % Immature Granulocytes 0.2 % (0-0.5); % Neutrophils 50.8 % (42.2-75.2); Absolute Basophils 0.1 10^3/uL (0-0.2); Absolute Eosinophils 0.2 10^3/uL (0-0.7); Absolute Lymphocytes 3.3 10^3/uL (1.2-3.4); Absolute Monocytes 0.5 10^3/uL (0.1-0.6); Absolute Neutrophils 4.2 10^3/uL (1.4-6.5); Hematocrit 36.5 % (37.0-47.0); Hemoglobin 13.1 g/dL (12.0-16.0); Mean Corp Hgb Conc. 35.9 g/dL (33.0-37.0); Mean Corpuscular Hgb 33.6 pg (27.0-31.0); Mean Corpuscular Volume 93.6 fL (81.0-99.0); Mean Platelet Volume 10.2 fL (7.4-10.4); Nucleated Red Blood Cells % 0 %; Platelet Count 348 10^3/uL (130-400); White Blood Cell Count 8.3 10^3/uL (4.8-10.8)
[2023-12-15 08:00] VITALS: BP 146/91
--- NOTE | 2023-12-15 08:06 | ED.GENMED ---
History of Present Illness
General
Chief Complaint: Headache
Source: patient
Exam Limitations: none
Time Seen by Provider: 12/15/23 07:34
Nursing documentation reviewed up to this point in time: agreed with
History of Present Illness
History of Present Illness:
pt is a 73 y/o F with h/o chronic pain neck, arms, back, legs, on MS contin/morphine IR
herpetic neuralgia
some degree of chronic headaches
woke up 5 am with a very severe L sided headache, around L face and eye
she has had headaches previously but this feels worse
she has chronic photophobia
denies nausea, vomiting, neck pain, weakness/numbness in the arms or legs, falls, balacnce poblems
she took a dose of morphine IR
pt says as an aside, that within the past few months her kassy sheehan gotten involved in her chronic pain regimen and now it is differen tand she thinks this has contributed to a lot of issues she has been having with pain
She is not supposed take MS Contin anymore and has cut down her morphine IR to 1 twice a day dosing rather than every 6 hours for breakthrough. Patient says that this is caused a lot of issues for her. She wishes her daughter drink it involved.
Patient has had chronic headaches but not to this degree and says that she has had many brain imaging modalities without any findings. She 20 some years ago had herpes zoster in her eye and she does believe that this is also a reason why she gets
chronic headaches.
Past History
Past History
ED Past Medical History: Arrthythmia (Paroxysmal atrial fibrillation), Asthma, HTN, Other (Subarachnoid hemorrhage fracture C1, GI bleeding, Arthritis, PNA, Sepsis, questionable PE, Swallowing difficulty) and Other (Traumatic brain injury, C1
fracture, prior pneumonias. uveitis)
ED Past Surgical History: Appendectomy and Gynecological (Vaginal sling)
Social History
Tobacco: Non-smoker
Alcohol: Occasional
Drug: None
Personal:
Living: with family
Employment: Not employed
Family History
Family History: Other (Noncontributory)
Review of Systems
Review of Systems
Allergies reviewed?: Yes
All Other Systems: Not applicable
Phy Exam
Physical Exam
Physical Exam:
GENERAL: Alert , in no apparent distress keeping eyes closed, holding hand over L eye
HEAD: NCAT, no scalp tenderness
EYE: pupils equal and reactive, no nystagmus, mild photophobia
NECK: Supple,full rom, nontender
ENT: o/p clr, mmm.
CARDIAC: Regular rate and rhythm . no edema
LUNGS: Clear breath sounds bilaterally, no acute respiratory distress, no wheezes/rales/rhonchi
ABDOMEN: Soft, without focal tenderness, no r/g, no cvat
NEUROLOGICAL: Alert and orientedx 4, cn intact, no facial asymmetry, (very subtlecorner L mouth down but elevates symmetrically), very minimal dysarthria, 5/5 strength in UE/LE, sensation intact, romberg neg, ambulates without assistance, neg
pronator drift
SKIN: Warm and dry, skin intact.
MUSCULOSKELETAL: No edema, well perfused.
PSYCH: Normal and appropriate interaction.
Course
Orders/Labs/Results
Orders:
Orders
12/15/23 07:37
Complete Blood Count/With Diff Urgent
Erythrocyte Sed Rate Urgent
Comment: ADD ON
12/15/23 08:19
Add On- LAB Urgent
Tests Added?: esr
CT Head W/o Iv Contrast Urgent
Comment:
Reason For Exam: headache 5 am
0.9% Sodium Chloride 500 ml [Nss] 500 ml IV BOLUS
12/15/23 08:20
Diphenhydramine [Benadryl] 12.5 mg IV NOW STA
12/15/23 08:24
Metoclopramide [Reglan] 10 mg 0.9% Sodium Chloride 50 ml [Nss] 50 ml IV NOW
12/15/23 08:25
Alcohol Urgent
Basic Metabolic Panel Urgent
12/15/23 09:27
Comprehensive Metabolic Panel Urgent
12/15/23 12:10
Consult Neurology [NEUROLOGY CONSULT] Urgent
Consulting Provider: Smooth Webb
Was physician already notified: Yes
12/15/23 13:56
Add On- LAB Routine
Tests Added?: alcohol level
Abnormal Lab Results
12/15/23 12/15/23 12/15/23
07:37 08:25 09:27
RBC 3.90 L 10^6/uL
(4.20-5.40)
Hct 36.5 L %
(37.0-47.0)
MCH 33.6 H pg
(27.0-31.0)
RDW 15.0 H %
(11.5-14.5)
BUN 18 H mg/dl
(7-17)
Creatinine 0.5 L mg/dL
(0.6-1.0)
Glucose 105 H mg/dl
(70-99)
Total Protein 5.3 L g/dl
(6.3-8.2)
12/15/23 07:37
12/15/23 09:27
Vital Signs
Initial and Last Documented VS:
Initial Vital Signs
BP
146/103
12/15/23 07:34
Last Documented Vital Signs
Temp Pulse Resp BP Pulse Ox
97.7 F 70 13 104/57 100
12/15/23 07:35 12/15/23 13:15 12/15/23 13:15 12/15/23 11:00 12/15/23 13:15
MDM/Problems Addressed
Differential Diagnosis Includes:
migraine, chronic pain, post herpetic neuralgia, GCA, oipiate withdrawal
MDM/Problems Addressed:
73 y/o F
chronic pain on oipates but who has been forced to dec dose over the pat few monthscauing flares of her chronic pain
post herpetic neuralgia chronic facial pain/headache/nekc pain
woke up with bad headache 5 am
left side of face
does feel similar to previous after much discussion but intensity was more sevre
no associated symptoms that are new
no red flag symptoms other than severity and it wok her
she has no h/o aneurysm
took her morphine IR and it didn't help much
she recently has been to neurology has had brain MRI without findings to explain this pain
no weakness/numbness/neck pain ,falls, ,visionc hanges
no facial tendenress
neuro intact
given that this headache started within 6 hours of this visit, will CT
do not bleieve this is new pain but acute on chronic exaceration
given reglan/benadryl
pt slept for a while and reassesed to have less pain
was a little drowsy but then woke, ambulated well to the bathroom
ct hea neg
labs unremarkable
sed rate normal
d/c home.
reassessed on d/c and pt seemed to have a little more slurring of speech than previously, likely related to bnaddryl
then she informmed me that she had been told yesterday that her speech was slrured
was this due to oxy??
at this point, d/w ed attending, recommended neuro consult
seen by neurology - they felt her pain related to migraine and that her polypharmacy is cause for her dysarthria
recommended adding baby asa which pt refuses becuase she has been told previously 'she may bleed to daeth' she is aware of risk/benefit wbut will not try this
she also was recommended to try gabapentin 100 mg hs for pain which i've prescribed
pt is well plugged into neuro
*Critical Care Note
Total Time (30-74mins, 75-104mins- exclusive of procedures): Not Applicable
ED Attending Note
-
Portions of this chart may have been created with voice recognition software.� Occasional wrong word or��sound alike� substitutions may have occurred due to the inherent limitations of voice recognition software.
Discharge Plan
Departure
Patient Disposition: Home (Routine Discharge)
Date of Disposition: 12/15/23
Time of Disposition: 13:38
Patient with high blood pressure during this ER visit?: No
Condition: Fair
Covid-19: Not Applicable
Discharge Problem:
Headache, Chronic pain
Instructions: Headache, Adult (DC)
Prescriptions:
New
gabapentin 100 mg capsule
100 mg PO HS Qty: 14 0RF
aspirin 81 mg capsule
81 mg PO DAILY Qty: 14 0RF
No Action
Glucosamine Chondroitin 1 EACH capsule
1 tab PO DAILY
cyclobenzaprine 10 MG tablet
5 mg PO TIDPRN PRN (Reason: muscle spasm)
acetaminophen 325 MG tablet
650 mg PO Q6HPRN PRN (Reason: mild pain)
albuterol sulfate 1 PUFF HFA aerosol inhaler
2 puff inhalation R Q4HPRN PRN (Reason: sob)
calcium carbonate-vitamin D3 [Oyster Shell Calcium-Vit D3] 500 MG tablet
1 tab PO DAILY
multivitamin with folic acid [Tab-A-Akanksha] 1 TABLET tablet
1 tab PO DAILY
pantoprazole 40 MG tablet,delayed release (DR/EC)
40 mg PO BID Qty: 60 0RF
albuterol sulfate 2.5 MG/3 ML solution for nebulization
2.5 mg inhalation R Q6HPRN PRN (Reason: sob)
cyanocobalamin (vitamin B-12) 1,000 MCG tablet
1,000 mcg PO DAILY 0RF
valacyclovir 500 mg tablet
500 mg PO DAILY
fluticasone propion-salmeterol [Advair HFA] 115-21 mcg/actuation Hfa Aerosol Inhaler
1 puff INHALATION R BID
sennosides [senna] 1 TABLET tablet
1 tab PO BID PRN (Reason: constipation)
ferrous sulfate [Iron (ferrous sulfate)] 325 MG tablet
325 mg PO DAILY
medroxyprogesterone 2.5 mg Tablet
1.25 mg PO DAILY
conjugated estrogens 0.3 mg Tablet
0.3 mg PO DAILY
Chloraseptic Sore Throat 6-10 mg Lozenge
1 holden PO Q4HPRN PRN (Reason: sore throat) Qty: 0 0RF
docusate sodium 100 mg Capsule
100 mg PO BID Qty: 0 0RF
polyethylene glycol 3350 [HealthyLax] 17 gram Powder In Packet
17 g PO DAILY Qty: 0 0RF
morphine 30 mg Tablet Extended Release
30 mg PO Q8H Qty: 6 0RF
morphine 15 mg Tablet
15 mg PO QIDPRN PRN (Reason: breakthrough pain) Qty: 8 0RF
guaifenesin 600 mg Tablet Extended Release 12hr
1,200 mg PO Q12 Qty: 0 0RF
prednisolone acetate 1 % Drops,Suspension
1 drp ophthalmic (eye) TID Qty: 10 0RF
Rx Instructions:
one drop both eyes three times per day
benzonatate 100 mg Capsule
200 mg PO TID PRN (Reason: Cough) Qty: 0 0RF
amoxicillin-pot clavulanate 875-125 mg tablet
1 tab PO BID 7 Days Qty: 14 0RF
Referrals:
UNKNOWN - PT DOES,NOT KNOW [Family Provider] -
Activity Restrictions/Additional Instructions:
YOUR HEAD CT WAS NEGATIVE
YOUR SYPMTOMS IMPROVED WITH MIGRAINE MEDICATIONS
TRY GABAPENTIN 100 MG AT NGT BEFORE BED, THIS MAY MAKE YOU SLEEPY - DO NOT TAKE AT THE SAME TIME YOUR MORPHINE.
TAKE ASPIRIN 81 MG DAILY
FOLLOW UP WITH YOUR DOCTOR
RETURN FOR: SEVERE WORSENING OF HEADACHE, VOMITING, CONFUSION, WEAKNESS, NUMBNESS, NECK PAIN, VISION CHANGES OR ANY CONCERNS
Interventions
Interventions:
*Risk Screen - Suicide Last Done: 12/15/23 07:31
*General Assessment Last Done: 12/15/23 07:31
*Neglect/Abuse Screening Last Done: 12/15/23 07:31
*Nursing Disposition Last Done: 12/15/23 14:06
ED- Neurological Assessment Last Done: 12/15/23 08:30
Discharge Date and Time
Discharge Date/Time: 12/15/23 14:58
Print Language: FAROESE
[2023-12-15 08:56] LABS: Blood Urea Nitrogen 18 mg/dl (7-17); Estimated Creatinine Clearance 64 ml/min; Glucose 105 mg/dl (70-99); Sodium 135 mmol/L (135-145); eGFR > 60.00
[2023-12-15 08:57] LABS: Calcium 9.6 mg/dl (8.4-10.2); Carbon Dioxide 26 mmol/L (22-30); Chloride 100 mmol/L (98-107)
[2023-12-15] MEDS: REGLAN 52 MG IV (09:15)
[2023-12-15] MEDS: NSS 500 IV (09:16)
[2023-12-15] MEDS: BENADRYL 12.5 MG IV (09:16)
[2023-12-15 09:27] LABS: Erythrocyte Sed Rate 8 mm/hour (0-20)
[2023-12-15 09:30] VITALS: BP 130/83
[2023-12-15 10:00] VITALS: BP 127/65
[2023-12-15 10:07] LABS: ALT (SGPT) 11 U/L (0-35); AST (SGOT) 23 U/L (14-36); Albumin 3.5 g/dl (3.5-5.0); Alkaline Phosphatase 52 U/L (38-126); Blood Urea Nitrogen 16 mg/dl (7-17); Calcium 9.6 mg/dl (8.4-10.2); Carbon Dioxide 27 mmol/L (22-30); Chloride 101 mmol/L (98-107); Estimated Creatinine Clearance 64 ml/min; Glucose 90 mg/dl (70-99); Potassium 3.9 mmol/L (3.5-5.1); Sodium 140 mmol/L (135-145); Total Bilirubin 0.4 mg/dl (0.2-1.3); Total Protein 5.3 g/dl (6.3-8.2); eGFR > 60.00
[2023-12-15 11:00] VITALS: BP 104/57
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
[2023-12-15 14:26] LABS: Alcohol None Detected
== END 2023-12-15 14:58 | disposition home or self-care (01) ==
LOC: EMR 07:30
PROVIDERS: Physician Assistant; CONSULT PHYSICIAN Psychiatry & Neurology Neurology; EMERGENCY PHYSICIAN Emergency Medicine
DX: G43.809 Other migraine, not intractable, without status migrainosus (principal); G50.0 Trigeminal neuralgia; I10 Essential (primary) hypertension; I48.0 Paroxysmal atrial fibrillation; J45.909 Unspecified asthma, uncomplicated; Z87.820 Personal history of traumatic brain injury
CPT/HCPCS: 96374; 96375; 96361; 99284; 70450; 80048; 80053; 82077; 85025; 85652

== ENCOUNTER 2023-12-30 16:03 | Emergency (ER) | payer MEDICARE, SELFPAY ==
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
[2023-12-30 16:15] VITALS: BP 156/89
[2023-12-30 16:20] VITALS: BP 156/89
[2023-12-30 16:45] LABS: % Basophils 0.5 % (0-2); % Eosinophils 0.3 % (0-6); % Immature Granulocytes 0.4 % (0-0.5); % Lymphocytes 21.3 % (20.5-51.1); % Monocytes 5.9 % (1.7-9.3); % Neutrophils 71.6 % (42.2-75.2); Absolute Basophils 0.1 10^3/uL (0-0.2); Absolute Monocytes 0.6 10^3/uL (0.1-0.6); Absolute Neutrophils 6.8 10^3/uL (1.4-6.5); Hematocrit 39.2 % (37.0-47.0); Hemoglobin 14.1 g/dL (12.0-16.0); Mean Corpuscular Hgb 33.4 pg (27.0-31.0); Mean Corpuscular Volume 92.9 fL (81.0-99.0); Mean Platelet Volume 10.2 fL (7.4-10.4); Nucleated Red Blood Cells % 0 %; Platelet Count 386 10^3/uL (130-400); Red Blood Cell Count 4.22 10^6/uL (4.20-5.40); Red Cell Dist. Width 14.6 % (11.5-14.5); White Blood Cell Count 9.5 10^3/uL (4.8-10.8)
[2023-12-30 17:00] VITALS: BP 155/95
[2023-12-30 17:01] LABS: ALT (SGPT) 15 U/L (0-35); AST (SGOT) 22 U/L (14-36); Acetaminophen < 10 ug/ml (10-30); Albumin 4.5 g/dl (3.5-5.0); Alkaline Phosphatase 61 U/L (38-126); Blood Urea Nitrogen 23 mg/dl (7-17); Calcium 10.3 mg/dl (8.4-10.2); Carbon Dioxide 24 mmol/L (22-30); Chloride 103 mmol/L (98-107); Glucose 101 mg/dl (70-99); Potassium 3.7 mmol/L (3.5-5.1); Sodium 141 mmol/L (135-145); Total Bilirubin 0.4 mg/dl (0.2-1.3); Total Protein 6.4 g/dl (6.3-8.2); eGFR > 60.00
[2023-12-30 18:00] VITALS: BP 171/132
== END 2023-12-30 19:31 | disposition home or self-care (01) ==
LOC: EMR 16:03
PROVIDERS: EMERGENCY PHYSICIAN Emergency Medicine
DX: K62.5 Hemorrhage of anus and rectum (principal); L89.329 Pressure ulcer of left buttock, unspecified stage; I27.20 Pulmonary hypertension, unspecified; I10 Essential (primary) hypertension; F41.9 Anxiety disorder, unspecified; F32.A Depression, unspecified; I48.0 Paroxysmal atrial fibrillation; G89.29 Other chronic pain; J45.909 Unspecified asthma, uncomplicated; M19.90 Unspecified osteoarthritis, unspecified site; Z79.82 Long term (current) use of aspirin; Z86.718 Personal history of other venous thrombosis and embolism; Z87.820 Personal history of traumatic brain injury; Z88.4 Allergy status to anesthetic agent; Z91.040 Latex allergy status; Z88.8 Allergy status to other drugs, medicaments and biological substances; Z91.048 Other nonmedicinal substance allergy status
CPT/HCPCS: 99283; 80053; 80143; 85025

== ENCOUNTER → 2024-01-28 10:18 | Outpatient (REF) | payer MEDICARE, SELFPAY | LOC: WOUND 10:18 | PROVIDERS: ATTENDING PHYSICIAN Surgery; FAMILY PHYSICIAN Emergency Medicine | DX: L89.323 Pressure ulcer of left buttock, stage 3 (principal); Z79.52 Long term (current) use of systemic steroids; F02.80 Dementia in other diseases classified elsewhere, unspecified severity, without behavioral disturbance, psychotic disturbance, mood disturbance, and anxiety; G47.19 Other hypersomnia; S06.9XAD Unspecified intracranial injury with loss of consciousness status unknown, subsequent encounter; X58.XXXD Exposure to other specified factors, subsequent encounter; I60.9 Nontraumatic subarachnoid hemorrhage, unspecified; I10 Essential (primary) hypertension; G93.89 Other specified disorders of brain; Z86.718 Personal history of other venous thrombosis and embolism | CPT/HCPCS: 99213 ==

== ENCOUNTER 2024-02-11 14:12 | Inpatient (IN) | payer MEDICARE, SELFPAY ==
[2024-02-11] VITALS (9 sets, daily range): BP systolic 115–142; BP diastolic 55–74; BMI 18.6
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
[2024-02-11] MEDS: NSS 1000 IV ×2 (10:26→13:38)
[2024-02-11 10:40] LABS: % Basophils 0.1 % (0-2); % Immature Granulocytes 0.5 % (0-0.5); % Lymphocytes 12.8 % (20.5-51.1); % Monocytes 5.5 % (1.7-9.3); % Neutrophils 81.1 % (42.2-75.2); Absolute Immature Granulocytes 0.1 10^3/uL (0-0.05); Absolute Monocytes 0.9 10^3/uL (0.1-0.6); Absolute Neutrophils 12.6 10^3/uL (1.4-6.5); Hematocrit 40.2 % (37.0-47.0); Hemoglobin 14.6 g/dL (12.0-16.0); Mean Corp Hgb Conc. 36.3 g/dL (33.0-37.0); Mean Corpuscular Hgb 33.1 pg (27.0-31.0); Mean Corpuscular Volume 91.2 fL (81.0-99.0); Mean Platelet Volume 10.8 fL (7.4-10.4); Nucleated Red Blood Cells % 0 %; Platelet Count 434 10^3/uL (130-400); Red Blood Cell Count 4.41 10^6/uL (4.20-5.40); Red Cell Dist. Width 14.6 % (11.5-14.5); White Blood Cell Count 15.5 10^3/uL (4.8-10.8)
[2024-02-11 10:44] LABS: ALT (SGPT) 37 U/L (0-35); AST (SGOT) 51 U/L (14-36); Albumin 4.1 g/dl (3.5-5.0); Alkaline Phosphatase 78 U/L (38-126); Blood Urea Nitrogen 54 mg/dl (7-17); Calcium 10.5 mg/dl (8.4-10.2); Carbon Dioxide 25 mmol/L (22-30); Chloride 106 mmol/L (98-107); Creatine Phosphokinase 100 U/L (30-135); Estimated Creatinine Clearance 65 ml/min; Glucose 105 mg/dl (70-99); Potassium 3.3 mmol/L (3.5-5.1); Sodium 151 mmol/L (135-145); Total Bilirubin 2.1 mg/dl (0.2-1.3); Total Protein 6.1 g/dl (6.3-8.2); eGFR > 60.00
--- NOTE | 2024-02-11 11:21 | PHANOTE ---
med rec note- called patient family on file but they do not live in state or help om out. used pharmacy to get med list plus also ecw but unfortunately list do not match. family stated patient suppose to stopped Ambien but still takes it.
[2024-02-11 13:39] LABS: Urine Albumin Trace (Neg - Trace); Urine Bilirubin 1+ (Negative); Urine Character Clear (Clear); Urine Color Yellow; Urine Glucose Negative (Negative); Urine Ketone 3+ (Negative); Urine Leukocyte Trace (Negative); Urine Nitrite Negative (Negative); Urine Occult Blood Negative (Negative); Urine Specific Gravity 1.015 (<1.030); Urine Urobilinogen 1+ (Neg - 1+); Urine pH 6.5 (5.0-9.0)
[2024-02-11 13:46] LABS: Urine Bacteria Few (Negative); Urine Squamous Cell 0-2 /LPF (Few)
[2024-02-11 13:47] LABS: Urine Red Blood Cell 0-2 /HPF (0-2)
--- NOTE | 2024-02-11 14:00 | HPS.HSE ---
Family Physician
-
Family Physician: INTERVIEWE UNKNOWN - PT NOT
Chief Complaint
-
fall down stairs
History of Present Illness
fall down stairs
Medical History
Past Medical History
Past Medical History: Reports Other (aroxysmal atrial fibrillation not on anticoagulation, DVT with IVC filter, asthma, hypertension, GI bleeding, subarachnoid hemorrhage, chronic back/neck pain, history of shingles right eye)
Past Surgical History: Reports Other (Appendectomy and Gynecological (Vaginal sling))
Social History
Tobacco: Non-smoker
Alcohol: None
Drug: None
Family History
Family History: Not pertinent
Allergies / Home Medications
Allergies reflects when Allergies were last updated in [facility].
Home Medications with original date entered in [facility]ued[facility]
Allergy/Medication List:
Allergies
Allergy/AdvReac Type Severity Reaction Status Date / Time
Adhesive Bandage Allergy skin Verified 02/11/24 10:07
*RETIRED-12/16/11 irritation
[Adhesive Bandage]
lanolin Allergy Unknown Verified 02/11/24 10:07
Latex, Natural Rubber Allergy Unknown Verified 02/11/24 10:07
povidone-iodine Allergy watery Verified 02/11/24 10:07
[From Betadine] blister on
back
sodium lauryl sulfate Allergy breaks out Verified 02/11/24 10:07
some anesthesias Allergy Unknown Uncoded 02/11/24 10:07
Home Medications
cyclobenzaprine 10 mg tablet 5 mg PO HS muscle spasm/pain 11/24/18
fluticasone propionate 115 mcg-salmeterol 21 mcg/actuation HFA inhaler (Advair HFA) 1 puff inhalation R BID Lung/Breathing Issues 07/20/23
valacyclovir 500 mg tablet 500 mg PO DAILY Infection 07/20/23
losartan 100 mg-hydrochlorothiazide 12.5 mg tablet 1 tab PO DAILYPRN PRN blood pressure 02/11/24
morphine 15 mg immediate release tablet 15 mg PO Q6HPRN PRN severe pain 02/11/24
morphine 15 mg tablet,extended release 15 mg PO TID pain 02/11/24
pantoprazole 40 mg tablet,delayed release (Protonix) 40 mg PO DAILY Gastrointestinal Issue 02/11/24
zolpidem 12.5 mg tablet,extended release,multiphase (Ambien CR) 12.5 mg PO HSPRN PRN sleep 02/11/24
Review of Systems
-
History Source: Patient
A 12 point ROS was completed and negative except as noted: Yes
Constitutional: Reports No Symptoms
EENT: Reports No Symptoms
Respiratory: Reports No Symptoms
Cardiac: Reports No Symptoms
Abdomen/GI: Reports See HPI
: Reports No Symptoms
Musculoskeletal: Reports No Symptoms
Skin: Reports No Symptoms
Neurological: Reports No Symptoms
Endocrine: Reports No Symptoms
Hematologic/Lymphatic: Reports No Symptoms
Psych: Reports No Symptoms
Physical Exam
Vital Signs
Vital Signs
Temp Pulse Resp BP
95.1 F L 104 24 142/69
02/11/24 12:30 02/11/24 10:00 02/11/24 10:00 02/11/24 10:00
Physical Exam
General: Well Developed, Well Nourished and No Apparent Distress
HEENT: NormoCephalic, Moist mucous membranes and Atraumatic
Respiratory: Clear
Cardiac: S1/S2 and Regular Rhythm; No Murmur or Rub
GI: Soft, Non Distended, Normal Bowel Sounds and Tender (diffusely ); No Organomegaly
Rectal: Deferred by Provider
Musculoskeletal: No Clubbing, No Cyanosis and No Edema
Skin: No Rash
Neuro: Nonfocal/grossly intact
Laboratory Results
-
02/11/24 10:24
11/14/24 10:24
Laboratory Results
Lactic Acid 1.0 mmol/L (0.7-2.0) 02/11/24 12:31
Total Bilirubin 2.1 mg/dl (0.2-1.3) H 02/11/24 10:24
AST 51 U/L (14-36) H 02/11/24 10:24
ALT 37 U/L (0-35) H 02/11/24 10:24
Alkaline Phosphatase 78 U/L (38-126) 02/11/24 10:24
Data Reviewed
-
Lab Data: Labs Reviewed by me
Old Records: Reviewed
Impression/Plan
-
IMPRESSION:
PLAN:
# Comminuted intertrochanteric right hip fracture secondary to fall
-N.p.o. postmidnight
-Ortho consulted for surgery tomorrow
-Trauma workup including right shoulder x-ray, chest x-ray, CT head, CT cervical spine unremarkable
-Morphine IV as needed for breakthrough pain, hold standing morphine for now given lethargy
-Patient at higher than average risk for cardiac complications after hip surgery due to history of atrial fibrillation not on anticoagulation, but can proceed with surgery after treatment of SIRS/metabolic encephalopathy
-CK unremarkable
# Metabolic encephalopathy secondary to hypothermia/SIRS (leukocytosis, tachycardia, hypothermia) possibly secondary to ascending colitis versus UTI
-Temperature of 95.1
-Urinalysis pending
-Blood culture pending
-Chest x-ray no signs of infection
-CT abdomen pelvis shows mild rectal fecal impaction, minor diverticulosis, prominent urinary bladder distention, under distention of the ascending colon with mild wall thickening suggestive of colitis
-Empiric Zosyn for now
-Check stool culture if diarrhea
# Abdominal pain secondary to mild rectal fecal impaction versus ascending colitis
-Continue to monitor bowel movements
# Prominent urinary bladder distention
-Evaluate for urinary retention from constipation/UTI
-Bladder scan protocol
# Hypernatremia secondary to poor oral intake/hypovolemia
-D5 half-normal saline
# Hypokalemia
-Potassium repletion
Paroxysmal A-fib
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
GERD
GI bleed hx
distal reflux esophagitis
Continue Protonix
Essential HTN
-Continue losartan 100 mg
-Hold HCTZ 12.5 Mg
Asthma
-no acute exacerbation
Continue inhalers
Chronic pain
Continue morphine 30 mg every 8 hours severe pain, 15 mg 4 times daily as needed
Chronic anemia -B12 and iron deficiency
DVT with IVC filter
TBI, C1 fracture, subarachnoid hemorrhage
Arthritis
-Continue calcium plus D
Anxiety, depression
-No reported meds
Insomnia
Hold Ambien
Chronic left eye upper lid droop
Reports history of shingles left eye 20 years ago
-Takes valacyclovir 500 mg daily
DVT prophylaxis -SCDs
DNR
N.p.o. past midnight
[2024-02-11] MEDS: MORPHINE SULFATE 2 MG IV (14:19)
[2024-02-11] MEDS: ZOSYN 50 IV ×2 (14:21→20:37)
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
[2024-02-11] MEDS: FLUSH (NSS) 1 FLUSH IV (16:45)
[2024-02-11] MEDS: D5/0.45%NACL 1000 IV (16:45)
[2024-02-11] MEDS: ADVAIR HFA 115/21 MCG INHALER 1 PUFF INH (19:31)
[2024-02-12] MEDS: ZOSYN 50 IV ×4 (01:18→19:45)
[2024-02-12 03:09] VITALS: BP 124/59
[2024-02-12] MEDS: D5/0.45%NACL 1000 IV (05:56)
[2024-02-12] MEDS: MORPHINE SULFATE 1 MG IV ×3 (06:19→21:50)
[2024-02-12 06:59] LABS: ALT (SGPT) 27 U/L (0-35); AST (SGOT) 34 U/L (14-36); Albumin 2.9 g/dl (3.5-5.0); Alkaline Phosphatase 71 U/L (38-126); Blood Urea Nitrogen 33 mg/dl (7-17); Calcium 8.6 mg/dl (8.4-10.2); Carbon Dioxide 27 mmol/L (22-30); Chloride 107 mmol/L (98-107); Estimated Creatinine Clearance 65 ml/min; Glucose 110 mg/dl (70-99); Potassium 2.4 mmol/L (3.5-5.1); Sodium 146 mmol/L (135-145); Total Bilirubin 1.8 mg/dl (0.2-1.3); Total Protein 4.9 g/dl (6.3-8.2); eGFR > 60.00
--- NOTE | 2024-02-12 07:10 | PTCARENOTE ---
Pt incontinent but had low urine output overnight, BS pt retaining 1042 mL, SC pt 1050 mL of urine output
[2024-02-12 07:30] VITALS: BP 124/61
[2024-02-12 07:33] LABS: % Basophils 0.1 % (0-2); % Eosinophils 0.5 % (0-6); % Immature Granulocytes 0.8 % (0-0.5); % Lymphocytes 14.7 % (20.5-51.1); % Monocytes 5.9 % (1.7-9.3); Absolute Eosinophils 0.1 10^3/uL (0-0.7); Absolute Immature Granulocytes 0.1 10^3/uL (0-0.05); Absolute Monocytes 0.8 10^3/uL (0.1-0.6); Absolute Neutrophils 10.6 10^3/uL (1.4-6.5); Hematocrit 34.2 % (37.0-47.0); Hemoglobin 12.4 g/dL (12.0-16.0); Mean Corp Hgb Conc. 36.3 g/dL (33.0-37.0); Mean Corpuscular Volume 93.7 fL (81.0-99.0); Nucleated Red Blood Cells % 0 %; Red Blood Cell Count 3.65 10^6/uL (4.20-5.40); Red Cell Dist. Width 14.6 % (11.5-14.5); White Blood Cell Count 13.6 10^3/uL (4.8-10.8)
[2024-02-12] MEDS: ADVAIR HFA 115/21 MCG INHALER 1 PUFF INH ×2 (07:55→18:24)
--- NOTE | 2024-02-12 08:21 | W.PN.UPDATE ---
Update Note
Progress Note Update
73-year-old female plan for or today for right hip cephalomedullary nail fixation
Antibiotics on-call to operating room
N.p.o.
Consent on file
[2024-02-12 08:43] LABS: Mean Platelet Volume 10.9 fL (7.4-10.4); Platelet Count 333 10^3/uL (130-400)
[2024-02-12] MEDS: PROTONIX 40 MG PO (08:44)
[2024-02-12] MEDS: KCL 270 MEQ IV (08:44)
[2024-02-12] MEDS: VALTREX 500 MG PO (08:44)
[2024-02-12] MEDS: DILAUDID 0.5 MG IV (10:39)
[2024-02-12 10:42] VITALS: BMI 18.6
[2024-02-12 11:05] VITALS: BP 129/96
--- NOTE | 2024-02-12 11:11 | CM ---
Addendum entered by Caroline Gann 02/12/24 12:03:
PCP: Hilary Braxton
Daughter states she has not found another physician
Pharmacy: [facility], [place]
Original Note:
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
R hip fx, fall
PMH: Afib, dementia, DVT/PE
IA obtained by daughter who lives in [place]
She states she is looking at moving patient closer to her
Patient 9 mos ago
Patient lives at home alone in a 2 story home
[facility] in past/[facility] in past
PT/OT to eval post-op
PLAN: OR, await PT/OT rec post-op
[2024-02-12] MEDS: KCL 40 MEQ PO ×2 (12:50→15:58)
[2024-02-12 14:01] LABS: Magnesium 1.9 mg/dl (1.6-2.3)
[2024-02-12 14:32] LABS: Urine Albumin Trace (Neg - Trace); Urine Bilirubin 1+ (Negative); Urine Color Yellow; Urine Glucose Negative (Negative); Urine Ketone 1+ (Negative); Urine Leukocyte Trace (Negative); Urine Nitrite Negative (Negative); Urine Occult Blood Negative (Negative); Urine Urobilinogen 1+ (Neg - 1+); Urine pH 6.5 (5.0-9.0)
--- NOTE | 2024-02-12 14:45 | W.PN.HOSP.TC ---
Today's Communication/Plan
-
see note
Assessment / Plan
Assessment / Plan
CT a/p
No apparent solid or hollow visceral organ injury. Prominent urinary bladder distention.
Mild rectal fecal impaction. Minor diverticulosis without acute diverticulitis.
Under distention of the ascending colon. Mild wall thickening suggested, which is difficult to assess given the underdistended state. However, recommend clinical correlation to exclude the possibility of nonspecific colitis.
Right intertrochanteric comminuted fracture.

# Comminuted intertrochanteric right hip fracture secondary to fall
-Trauma workup including right shoulder x-ray, chest x-ray, CT head, CT cervical spine unremarkable
-Orthopedic surgery consulted and will plan for OR Today
-Continue pain control with morphine
#Acute Metabolic encephalopathy - Improved
-Suspected from colitis vs medication related
-Urinalysis neg. Blood culture neg.
-Chest x-ray no signs of infection
-CT abdomen pelvis shows mild rectal fecal impaction, minor diverticulosis, prominent urinary bladder distention, under distention of the ascending colon with mild wall thickening suggestive of colitis
# Severe Hypokalemia
-Suspected from diarrhea related potassium
-Mag WNL
-K 2.4 in morning today, provided 80meq K, recheck pending
# Acute colitis - presumed infectious
-CT abdomen pelvis questioning of ascending colitis
-maintain on IV zosyn empirically
# Constipation
-enema after OR
-maintain on oral miralax
# Urinary retention
-s/p straight cath in ER
-continue with bladder scan protocol
# Hypernatremia - improved
-secondary to poor oral intake/hypovolemia
-stop further D5 half-normal saline
# Paroxysmal A-fib
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
#GERD
GI bleed hx
distal reflux esophagitis
Continue Protonix
# Essential HTN
-Continue losartan 100 mg
-Hold HCTZ 12.5 Mg
#Asthma
-no acute exacerbation
Continue inhalers
#Chronic pain -Continue morphine 30 mg every 8 hours severe pain, 15 mg 4 times daily as needed
# Chronic anemia -B12 and iron deficiency
#DVT with IVC filter
# TBI, C1 fracture, subarachnoid hemorrhage
# Arthritis
# Anxiety, depression
# Insomnia - hold ambien
# Chronic left eye upper lid droop - Reports history of shingles left eye 20 years ago -Takes valacyclovir 500 mg daily
DVT prophylaxis -SCDs
DNR
Total time spent : 52 mins
Anticipated Discharge: 24 - 48 hours
Subjective/Interval History
-
Date of Service: February 12, 2024
Complaining of right-sided hip pain
Denies of having any lower abdominal discomfort/nausea
Minimal hematuria will bleed due to required straight catheterization
Objective Data
-
Labs:
Laboratory Results
02/12/24 02/12/24
04:44 12:38
WBC 13.6 H
Hgb 12.4
Hct 34.2 L
Plt Count 333 D
Sodium 146 H Pending
Potassium 2.4 L* D Pending
Chloride 107 Pending
Carbon Dioxide 27 Pending
BUN 33 H Pending
Creatinine 0.6 Pending
Glucose 110 H Pending
Calcium 8.6 D Pending
Total Bilirubin 1.8 H
AST 34
ALT 27
Alkaline Phosphatase 71
Vital Signs:
Vital Signs
Temp Pulse Resp BP Pulse Ox
97.4 F 78 16 129/96 95
02/12/24 11:05 02/12/24 11:05 02/12/24 11:05 02/12/24 11:05 02/12/24 11:05
I&O
02/11/24 02/12/24 02/13/24
06:59 06:59 06:59
Intake Total 1620 / 1620
Output Total 1050 / 1050
Balance 1620 / 570 -1050 / -1050
Review of Systems
-
Respiratory: Reports No Symptoms
Cardiac: Reports No Symptoms
Abdomen/GI: Reports No Symptoms
Physical Exam
-
General: No Apparent Distress and Comfortable
HEENT: Negative Oxygen
Respiratory: Clear to Auscultation
Cardiac: Regular Rhythm and S1/S2; Negative Murmur or Rub
GI: Soft, Nontender, Nondistended and Normal Bowel Sounds
Musculoskeletal: No Edema
Neuro: Awake, Alert, Oriented, No Motor Deficits and Nonfocal/Grossly Intact
Psych: Calm
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
[2024-02-12 15:00] VITALS: BP 106/53
[2024-02-12 15:07] LABS: Urine Character Slightly Cloudy (Clear)
[2024-02-12 15:19] LABS: Urine Amorphous Seen
[2024-02-12 15:25] LABS: Urine Bacteria Few (Negative)
[2024-02-12 15:37] LABS: Blood Urea Nitrogen 28 mg/dl (7-17); Calcium 8.9 mg/dl (8.4-10.2); Carbon Dioxide 27 mmol/L (22-30); Chloride 110 mmol/L (98-107); Estimated Creatinine Clearance 65 ml/min; Glucose 101 mg/dl (70-99); Potassium 3.2 mmol/L (3.5-5.1); Sodium 144 mmol/L (135-145); eGFR > 60.00
--- NOTE | 2024-02-12 15:57 | PN.CDI ---
CDI
- -
CDI:
Physician Documentation Request
Admit Date: 02/11/24 14:12
Dear Doctor Long,
Patient admitted with Comminuted intertrochanteric right hip fracture secondary to fall
H&P states 'Metabolic encephalopathy secondary to hypothermia/SIRS (leukocytosis, tachycardia, hypothermia) possibly secondary to ascending colitis versus UTI'
02/11 contains a diagnosis of 'Acute colitis - presumed infectious'
Please clarify which most accurately describes the patient:
Sepsis
Systemic manifestations of infection, with 2 or more SIRS criteria which include:
Fever > 100.4 degrees F or hypothermia < 96.8 degrees F
Leukocytosis - WBC > 12,000 or leukopenia, WBC < 4,000 or > 10% bands
Tachycardia - > 90 beats per minute
Tachypnea - RR > 20 breaths per minute or PaCO2 < 32 mmHg
Source: Merck Manual 2013
Indicate the known or suspected organism
Indicate the known or suspected underlying infection, such as UTI, pneumonia or cellulitis
Indicate if there is associated organ dysfunction, such as renal or respiratory failure
SIRS due to a non-infectious source
Indicate the known or suspected etiology
Indicate if there is associated organ dysfunction, such as renal or respiratory failure
Other
Use of terms such as suspected, likely, concern for, or probable (associated with a specific diagnosis that is being evaluated, monitored, or treated as if it exists) are acceptable and can be coded in the inpatient setting, when documented at the
time of discharge.
Thank you,
Celeste Cabrera RN, BSN
CDI Specialist
tiger text
Please use your independent medical judgment in providing your response.
--- NOTE | 2024-02-12 16:01 | PN.CDI ---
CDI
- -
CDI:
Physician Documentation Request
Admit Date: 02/11/24 14:12
Dear Doctor Long,
02/11 WOCN note states 'Sacral and L hip/buttock stage 3 PI'
Physician documentation of the type and location of wounds is required for compliant documentation. Based on the above clinical findings and your assessment, please provide the following in your progress note:
1. Location of the ulcer/wound, including laterality.
2. Type (etiology) of ulcer/wound:
- Diabetic ulcer
- Arterial (ischemic) ulcer
- Traumatic wound
- Venous stasis ulcer
- Pressure (decubitus) ulcer
- Non-healing surgical wound
- Other
- Unable to determine
Use of terms such as suspected, likely, concern for, or probable (associated with a specific diagnosis that is being evaluated, monitored, or treated as if it exists) are acceptable and can be coded in the inpatient setting, when documented at the
time of discharge.
Thank you,
Celeste Cabrera RN, BSN
CDI Specialist
tiger text
Please use your independent medical judgment in providing your response.
*Source: National Pressure Ulcer Advisory Panel (NPUAP)
[2024-02-12 19:30] VITALS: BP 103/56
[2024-02-12 23:00] VITALS: BP 107/54
[2024-02-13] VITALS (10 sets, daily range): BP systolic 107–166; BP diastolic 61–94
[2024-02-13] MEDS: ZOSYN 50 IV ×4 (01:12→20:15)
[2024-02-13] MEDS: MORPHINE SULFATE 1 MG IV ×2 (04:57→20:25)
[2024-02-13] MEDS: ADVAIR HFA 115/21 MCG INHALER 1 PUFF INH ×2 (07:31→20:37)
[2024-02-13 08:26] LABS: Blood Urea Nitrogen 20 mg/dl (7-17); Calcium 8.8 mg/dl (8.4-10.2); Carbon Dioxide 26 mmol/L (22-30); Chloride 111 mmol/L (98-107); Estimated Creatinine Clearance 65 ml/min; Glucose 97 mg/dl (70-99); Potassium 3.5 mmol/L (3.5-5.1); Sodium 143 mmol/L (135-145); eGFR > 60.00
[2024-02-13] MEDS: VALTREX 500 MG PO (08:57)
[2024-02-13] MEDS: PROTONIX 40 MG PO (08:57)
[2024-02-13] MEDS: DILAUDID 0.5 MG IV (09:25)
[2024-02-13 14:17] LABS: Hematocrit 32.5 % (37.0-47.0); Hemoglobin 11.2 g/dL (12.0-16.0); Mean Corp Hgb Conc. 34.5 g/dL (33.0-37.0); Mean Corpuscular Hgb 33.2 pg (27.0-31.0); Mean Corpuscular Volume 96.4 fL (81.0-99.0); Mean Platelet Volume 10.4 fL (7.4-10.4); Platelet Count 252 10^3/uL (130-400); Red Blood Cell Count 3.37 10^6/uL (4.20-5.40); Red Cell Dist. Width 15.1 % (11.5-14.5); White Blood Cell Count 9.3 10^3/uL (4.8-10.8)
--- NOTE | 2024-02-13 15:21 | PTCARENOTE ---
Received patient from PACU around 1430 via bed in stable condition. Patient resting comfortably. Dressing to right hip with moderate amount of drainage. Scant amount to distal right hip dressing. Call stack in reach.
[2024-02-13] MEDS: SANTYL OINTMENT 1 APPLIC TOPICAL (15:29)
--- NOTE | 2024-02-13 16:16 | W.IMMPOSTOP ---
Surgical Immed Post Op Note
-
Primary Surgeon: Manuel Simmons MD
Assisting Surgeon:
Pre-op Diagnosis: right intertochanteric hip fracture
Post-op Diagnosis: right intertochanteric hip fracture
Procedure Performed: intramedullary fixation right intertrochanteric hip fracture
Anesthesia Type: general
Specimen / Cultures: none
Estimated Blood Loss: 25mL
Complications: none apparent
Operative Findings: intertrochanteric fracture right hip
Implant: [id number] Gamma [id number], 125 degree nail; [id number] lag screw
Operative dictation # [id number]
--- NOTE | 2024-02-13 17:02 | W.PN.HOSP.TC ---
Today's Communication/Plan
-
pt/ot evaluating in morning
continue abx for now
rehab discharge likely on thursday
Assessment / Plan
Assessment / Plan
CT a/p
No apparent solid or hollow visceral organ injury. Prominent urinary bladder distention.
Mild rectal fecal impaction. Minor diverticulosis without acute diverticulitis.
Under distention of the ascending colon. Mild wall thickening suggested, which is difficult to assess given the underdistended state. However, recommend clinical correlation to exclude the possibility of nonspecific colitis.
Right intertrochanteric comminuted fracture.

# Comminuted intertrochanteric right hip fracture secondary to fall
-Trauma workup including right shoulder x-ray, chest x-ray, CT head, CT cervical spine unremarkable
-s/p intramedullary fixation right intertrochanteric hip fracture on 02/12
-Continue pain control with morphine
#Acute Metabolic encephalopathy - Improved
-Suspected from colitis vs medication related
-Urinalysis neg. Blood culture neg.
-Chest x-ray no signs of infection
-CT abdomen pelvis shows mild rectal fecal impaction, minor diverticulosis, prominent urinary bladder distention, under distention of the ascending colon with mild wall thickening suggestive of colitis
# Severe Hypokalemia - Improved
-Suspected from diarrhea related potassium
-Mag WNL
-replace PRN
# Acute colitis - presumed infectious
-CT abdomen pelvis questioning of ascending colitis
-maintain on IV zosyn empirically
# Constipation - resolved
-maintain on oral miralax
# Urinary retention
-s/p straight cath in ER
-continue with bladder scan protocol
# Hypernatremia -Resolved
-secondary to poor oral intake/hypovolemia
-stop further D5 half-normal saline
# Paroxysmal A-fib
no AC therapy due to GI bleed and DIVISION MANAGER hemorrhage
#GERD
GI bleed hx
distal reflux esophagitis
Continue Protonix
# Essential HTN
-Continue losartan 100 mg
-Hold HCTZ 12.5 Mg
#Asthma
-no acute exacerbation
Continue inhalers
#Chronic pain -Continue morphine 30 mg every 8 hours severe pain, 15 mg 4 times daily as needed
# Chronic anemia -B12 and iron deficiency
#DVT with IVC filter
# TBI, C1 fracture, subarachnoid hemorrhage
# Arthritis
# Anxiety, depression
# Insomnia - hold ambien
# Chronic left eye upper lid droop - Reports history of shingles left eye 20 years ago -Takes valacyclovir 500 mg daily
DVT prophylaxis -SCDs
DNR
Total time spent : 52 mins
Anticipated Discharge: 24 - 48 hours
Subjective/Interval History
-
Date of Service: February 13, 2024
Patient seen postoperatively
Complaining of some right hip discomfort
Had bowel movement in the morning without enema
No other issues reported
Objective Data
-
Labs:
Laboratory Results
02/13/24
08:06
WBC 9.3
Hgb 11.2 L
Hct 32.5 L
Plt Count 252 D
Sodium 143
Potassium 3.5
Chloride 111 H
Carbon Dioxide 26
BUN 20 H
Creatinine 0.6
Glucose 97
Calcium 8.8
Vital Signs:
Vital Signs
Temp Pulse Resp BP Pulse Ox
97.4 F 86 18 135/86 90
02/13/24 14:35 02/13/24 14:35 02/13/24 14:35 02/13/24 14:35 02/13/24 14:35
I&O
02/12/24 02/13/24 02/14/24
06:59 06:59 06:59
Intake Total 1620 / 1620 1870 / 1870 100 / 100
Output Total 1500 / 1500 675 / 675
Balance 1620 / 570 370 / 370 -575 / -575
Review of Systems
-
Respiratory: Reports No Symptoms
Cardiac: Reports No Symptoms
Abdomen/GI: Reports No Symptoms
Physical Exam
-
General: Comfortable
HEENT: Negative Oxygen
Respiratory: Clear to Auscultation
Cardiac: Regular Rhythm and S1/S2; Negative Murmur
GI: Soft, Nontender and Nondistended
Neuro: Awake, Alert, Oriented and No Motor Deficits
[2024-02-13] MEDS: ASPIRIN 325 MG PO (17:15)
[2024-02-13] MEDS: FLUSH (NSS) 2 FLUSH IV (20:14)
[2024-02-13] MEDS: ANCEF 5 IV (20:15)
[2024-02-14] VITALS (8 sets, daily range): BP systolic 102–140; BP diastolic 48–74; PULSE 101
[2024-02-14] MEDS: TYLENOL 650 MG PO (01:26)
[2024-02-14] MEDS: FLUSH (NSS) 1 FLUSH IV (01:27)
[2024-02-14] MEDS: ZOSYN 50 IV ×4 (01:35→19:32)
[2024-02-14] MEDS: FLEXERIL 5 MG PO ×2 (02:02→21:06)
[2024-02-14] MEDS: MORPHINE SULFATE 1 MG IV ×2 (02:04→08:50)
[2024-02-14] MEDS: ANCEF 5 IV (03:47)
[2024-02-14] MEDS: FLUSH (NSS) 2 FLUSH IV ×2 (03:47→05:10)
[2024-02-14] MEDS: MORPHINE SULFATE 2 MG IV (05:10)
--- NOTE | 2024-02-14 05:19 | PTCARENOTE ---
Pt. voicing concern she is not receiving her usual pain medication regiment consisting of Morphine 30mg ER TID and Morphine 15mg PO q6 hrs PRN. Explained to patient current ordered pain medication but is still concerned about missing her usual
medication and citing her pain is not controlled with current plan. House DIANETIC COUNSELOR contacted, stat Morphine given for 8/10 R hip pain. Will pass along to dayshift about patient's medication concerns to be addressed by this morning's hospitalist.
[2024-02-14 05:51] LABS: Hematocrit 29.7 % (37.0-47.0); Hemoglobin 9.9 g/dL (12.0-16.0); Mean Corp Hgb Conc. 33.3 g/dL (33.0-37.0); Mean Corpuscular Hgb 32.8 pg (27.0-31.0); Mean Corpuscular Volume 98.3 fL (81.0-99.0); Mean Platelet Volume 10.7 fL (7.4-10.4); Platelet Count 261 10^3/uL (130-400); Red Blood Cell Count 3.02 10^6/uL (4.20-5.40); Red Cell Dist. Width 14.7 % (11.5-14.5); White Blood Cell Count 12.9 10^3/uL (4.8-10.8)
[2024-02-14 06:18] LABS: Blood Urea Nitrogen 21 mg/dl (7-17); Calcium 8.1 mg/dl (8.4-10.2); Carbon Dioxide 26 mmol/L (22-30); Chloride 106 mmol/L (98-107); Estimated Creatinine Clearance 65 ml/min; Glucose 100 mg/dl (70-99); Potassium 3.7 mmol/L (3.5-5.1); Sodium 141 mmol/L (135-145); eGFR > 60.00
[2024-02-14] MEDS: ADVAIR HFA 115/21 MCG INHALER 1 PUFF INH ×2 (07:23→18:04)
[2024-02-14] MEDS: VALTREX 500 MG PO (08:52)
[2024-02-14] MEDS: PROTONIX 40 MG PO (08:52)
[2024-02-14] MEDS: ASPIRIN 325 MG PO (08:52)
[2024-02-14] MEDS: TORADOL 15 MG IV (10:58)
--- NOTE | 2024-02-14 10:59 | W.PN.HOSP.TC ---
Today's Communication/Plan
-
resume home regimen of pain medication
discharge rehab
Assessment / Plan
Assessment / Plan
CT a/p
No apparent solid or hollow visceral organ injury. Prominent urinary bladder distention.
Mild rectal fecal impaction. Minor diverticulosis without acute diverticulitis.
Under distention of the ascending colon. Mild wall thickening suggested, which is difficult to assess given the underdistended state. However, recommend clinical correlation to exclude the possibility of nonspecific colitis.
Right intertrochanteric comminuted fracture.

# Comminuted intertrochanteric right hip fracture secondary to fall
-Trauma workup including right shoulder x-ray, chest x-ray, CT head, CT cervical spine unremarkable
-s/p intramedullary fixation right intertrochanteric hip fracture on 02/12
-patient has been put back on Morphine IR 15mg q6hr - PDMP reviewed
#Acute Metabolic encephalopathy - Improved
-Suspected from colitis vs medication related
-Urinalysis neg. Blood culture neg.
-Chest x-ray no signs of infection
-CT abdomen pelvis shows mild rectal fecal impaction, minor diverticulosis, prominent urinary bladder distention, under distention of the ascending colon with mild wall thickening suggestive of colitis
# Severe Hypokalemia - Improved
-Suspected from diarrhea related potassium
-Mag WNL
-replace PRN
# Acute colitis - presumed infectious
-CT abdomen pelvis questioning of ascending colitis
-maintain on IV zosyn empirically
# Constipation - resolved
-maintain on oral miralax
# Urinary retention
-s/p straight cath in ER
-reis catheter required to be placed yesterday for retention.
# Hypernatremia -Resolved
-secondary to poor oral intake/hypovolemia
-stop further D5 half-normal saline
# Paroxysmal A-fib
-no AC therapy due to GI bleed and CHEF PASSENGER VESSEL hemorrhage
#GERD
GI bleed hx
distal reflux esophagitis
-Continue Protonix
# Essential HTN
-Continue losartan 100 mg
-Hold HCTZ 12.5 Mg
#Asthma
-no acute exacerbation
Continue inhalers
#Chronic pain and narcotic dependance
-MS contin 15mg TID with MS IR 15mg qhprn resumed
-hold dose if any signs of sedation
Chronic anemia -B12 and iron deficiency
DVT with IVC filter
TBI, C1 fracture, subarachnoid hemorrhage
Arthritis
Anxiety, depression
Insomnia - hold ambien
Chronic left eye upper lid droop - Reports history of shingles left eye 20 years ago -Takes valacyclovir 500 mg daily
DVT prophylaxis -SCDs
DNR
High risk of narcotic related complication, unfortunately patient difficult to reason with.
02/13 Patient demanding to be put on back on morphine immediate release. Patient was not happy and questioning why patient was not given morphine extended release yesterday, patient was postoperative day 0 and sedate and not appropriate to get
high doses of morphine, patient not happy with answer. I have informed patient that I am resuming back her home regimen of morphine immediate release at this point.
Anticipated Discharge: Within 24 hours
Subjective/Interval History
-
Date of Service: February 14, 2024
patient apparently agitated and demanding to talk to me in the morning
patient having right sided hip pain
Objective Data
-
Labs:
Laboratory Results
02/14/24
04:56
WBC 12.9 H
Hgb 9.9 L
Hct 29.7 L
Plt Count 261
Sodium 141
Potassium 3.7
Chloride 106
Carbon Dioxide 26
BUN 21 H
Creatinine 0.6
Glucose 100 H
Calcium 8.1 L
Vital Signs:
Vital Signs
Temp Pulse Resp BP Pulse Ox
98.2 F 60 14 140/65 97
02/14/24 08:03 02/14/24 08:03 02/14/24 08:03 02/14/24 08:03 02/14/24 08:03
I&O
02/13/24 02/14/24 02/15/24
06:59 06:59 06:59
Intake Total 1870 / 1870 1160 / 1160
Output Total 1500 / 1500 1235 / 1235
Balance 370 / 370 -75 / -75
Review of Systems
-
Respiratory: Reports No Symptoms
Cardiac: Reports No Symptoms
Abdomen/GI: Reports No Symptoms
Physical Exam
-
General: Comfortable
HEENT: Negative Oxygen
Respiratory: Clear to Auscultation
Cardiac: Regular Rhythm and S1/S2; Negative Murmur
GI: Soft, Nontender and Nondistended
Musculoskeletal: Other (Right hip dressing in place)
Neuro: Awake, Alert, Oriented and No Motor Deficits
--- NOTE | 2024-02-14 12:00 | CM ---
CM reviewed chart. Pt s/p OR on 02/10 for intertrochanteric fracture right hip. Pain mgmt on-going. PT and OT unable to evaluate pt this morning. Pt has been at [facility] in the past- referral sent and currently pending a return call to
discuss pt further. Pt has [facility] Medicare and will require a PT and OT eval within 24hrs of discharge for insurance auth.
Week day CM/SW will need to f/u in AM regarding final dispo planning.
CM/SW will continue to follow to ensure a safe and timely dc.
[2024-02-14] MEDS: SANTYL OINTMENT 1 APPLIC TOPICAL (12:21)
[2024-02-14] MEDS: MORPHINE SULFATE 15 MG PO (14:01)
--- NOTE | 2024-02-14 14:37 | W.PN.ORTHO ---
Today's Communication / Plan
-
POD #1 s/p right hip gamma nail.
-PT/OT with WBAT as medically able.
-Pain control per chronic medications.
-ASA 325 mg PO daily for DVT prophylaxis.
-Dressing to remain in place x 1 week.
-F/u in [address] Simmons.
-D/c recommendations pending PT.
Assessment
.
Distal Motor Intact: Yes
Dressing:
Clean, dry and intact.
Assessment:
POD #1 s/p right hip gamma nail.
-PT/OT with WBAT as medically able.
-Pain control per chronic medications.
-ASA 325 mg PO daily for DVT prophylaxis.
-Dressing to remain in place x 1 week.
-F/u in [address] Simmons.
-D/c recommendations pending PT.
Plan
.
Surgery / Date: 02/13/[address]. Simmons
DVT Prophylaxis: Aspirin
Activity:
Out of bed.
PT/OT
Subjective
.
.:
Patient resting comfortably in bed. Complaining of pain, but reports she is not receiving her regular regimen of home pain medication that pain management has found to be the most effective for her chronic pain.
Vital Signs and Labs
.
Vital Signs and Labs:
Lab Results
02/14/24 04:56
02/14/24 04:56
Temp Pulse Resp BP Pulse Ox
98.8 F 118 22 106/71 100
02/14/24 11:20 02/14/24 11:20 02/14/24 11:20 02/14/24 11:20 02/14/24 11:20
Physical Exam
-
Right hip: primaseal dressing with moderate saturation proximally, but remains in borders. Mild swelling. ROM of hip with some discomfort. Calf soft and non tender to palpation. N/v intact distally
[2024-02-14] MEDS: MS CONTIN (EXTENDED RELEASE) 15 MG PO ×2 (15:56→21:54)
[2024-02-15] VITALS (7 sets, daily range): BP systolic 120–137; BP diastolic 58–78; PULSE 77; O2SAT 96
[2024-02-15] MEDS: ZOSYN 50 IV ×4 (02:11→19:42)
[2024-02-15] MEDS: MORPHINE SULFATE 15 MG PO ×2 (02:58→10:39)
--- NOTE | 2024-02-15 04:17 | PTCARENOTE ---
pt observed sleeping post kennedi med administration however when pt heard nurse and nurse asked to reassess pain she verbalized /. pt was repositioned and educated regarding pain medication , vs and bed mobility
[2024-02-15] MEDS: TORADOL 15 MG IV ×2 (05:43→12:26)
[2024-02-15 06:24] LABS: Hematocrit 28.2 % (37.0-47.0); Hemoglobin 9.3 g/dL (12.0-16.0); Mean Corpuscular Hgb 32.6 pg (27.0-31.0); Mean Corpuscular Volume 98.9 fL (81.0-99.0); Mean Platelet Volume 11.3 fL (7.4-10.4); Platelet Count 229 10^3/uL (130-400); Red Blood Cell Count 2.85 10^6/uL (4.20-5.40); Red Cell Dist. Width 15.1 % (11.5-14.5); White Blood Cell Count 9.4 10^3/uL (4.8-10.8)
[2024-02-15 06:50] LABS: Blood Urea Nitrogen 18 mg/dl (7-17); Calcium 8.1 mg/dl (8.4-10.2); Carbon Dioxide 28 mmol/L (22-30); Chloride 103 mmol/L (98-107); Estimated Creatinine Clearance 65 ml/min; Glucose 93 mg/dl (70-99); Potassium 3.8 mmol/L (3.5-5.1); Sodium 139 mmol/L (135-145); eGFR > 60.00
[2024-02-15] MEDS: ADVAIR HFA 115/21 MCG INHALER 1 PUFF INH ×2 (07:56→19:48)
[2024-02-15] MEDS: VALTREX 500 MG PO (08:10)
[2024-02-15] MEDS: PROTONIX 40 MG PO (08:10)
[2024-02-15] MEDS: MS CONTIN (EXTENDED RELEASE) 15 MG PO ×3 (08:10→21:59)
[2024-02-15] MEDS: SANTYL OINTMENT 1 APPLIC TOPICAL (08:11)
[2024-02-15] MEDS: ASPIRIN PO (08:58)
--- NOTE | 2024-02-15 09:08 | W.PN.ORTHO ---
Today's Communication / Plan
-
Appreciate the hospitalist care, continue treatment
Dispo likely SNF- appreciate CM
WBAT RLE on walker/assistance
PT/OT
ASA 81mg BID x 4 weeks for DVT ppx (discussed with RN)
Dressings to remaining 7 to 10 days
Outpatient orthopedic follow-up in 4 weeks- orthopedics to sign off for now, please reengage with any questions as necessary
Assessment
.
Distal Motor Intact: Yes
Dressing:
Clean, dry and intact. Dressings. In place right thigh
Assessment:
POD#2 Right hip Gamma
Overall doing/feeling well
Calf soft, nontender
Plan
.
Surgery / Date: 02/13/[address] Simmons
DVT Prophylaxis: Aspirin (Will change to 81mg BID)
Activity:
Out of bed. WBAT RLE on walker/assistance
PT/OT
Discharge Plan: SNF (Appreciate CM)
Subjective
.
.:
Patient resting comfortably. endorses mild pain right hip. Has some concerns about full-strength aspirin due to history of bleeding ulcers in the remote past (10 years ago)
Vital Signs and Labs
.
Vital Signs and Labs:
Lab Results
02/15/24 05:44
02/15/24 05:44
Temp Pulse Resp BP Pulse Ox
98.2 F 70 14 134/78 98
02/15/24 07:29 02/15/24 07:59 02/15/24 07:59 02/15/24 07:29 02/15/24 07:59
[2024-02-15] MEDS: LOW STRENGTH ASPIRIN 81 MG PO ×2 (09:22→19:42)
--- NOTE | 2024-02-15 09:32 | PN.CDI ---
CDI
- -
CDI:
Physician Documentation Request
Admit Date: 02/11/24 14:12
Dear Doctor Long,
Patient admitted with Comminuted intertrochanteric right hip fracture secondary to fall. Underwent Intramedullary fixation on 02/12.
H/H results
Laboratory Tests
02/11/24 02/12/24 02/13/24
10:24 04:44 08:06
Hgb 14.6 12.4 11.2 L
Hct 40.2 34.2 L 32.5 L
02/14/24 02/15/24
04:56 05:44
Hgb 9.9 L 9.3 L
Hct 29.7 L 28.2 L
Could you please provide a diagnosis that supports the above lab abnormalities and additional evaluation monitoring:
Acute blood loss anemia
Anemia- other please specify
Abnormal lab value clinically insignificant
Other
Use of terms such as suspected, likely, concern for, or probable (associated with a specific diagnosis that is being evaluated, monitored, or treated as if it exists) are acceptable and can be coded in the inpatient setting, when documented at the
time of discharge.
Thank you,
Celeste Cabrera RN, BSN
CDI Specialist
tiger text
Please use your independent medical judgment in providing your response.
--- NOTE | 2024-02-15 13:56 | W.PN.HOSP.TC ---
Addendum entered and electronically signed by Feng Alves MD 02/15/24 15:22:
Add on to diagnosis:
SIRS only - POA - leukocytosis/tachycardia at present and likely from fracture/pain related.
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
Addendum entered and electronically signed by Feng Alves MD 02/15/24 15:20:
Acute blood loss anemia from surgery
-transfuse if hbg less than 7
Original Note:
Today's Communication/Plan
-
dispo planning for snf rehab
Assessment / Plan
Assessment / Plan
CT a/p
No apparent solid or hollow visceral organ injury. Prominent urinary bladder distention.
Mild rectal fecal impaction. Minor diverticulosis without acute diverticulitis.
Under distention of the ascending colon. Mild wall thickening suggested, which is difficult to assess given the underdistended state. However, recommend clinical correlation to exclude the possibility of nonspecific colitis.
Right intertrochanteric comminuted fracture.

# Comminuted intertrochanteric right hip fracture secondary to fall
-Trauma workup including right shoulder x-ray, chest x-ray, CT head, CT cervical spine unremarkable
-s/p intramedullary fixation right intertrochanteric hip fracture on 02/12
-patient has been put back on Morphine IR 15mg q6hr and MS contin 15mg TID- PDMP reviewed
#Acute Metabolic encephalopathy - Improved
-Suspected from colitis vs medication related
-Urinalysis neg. Blood culture neg.
-Chest x-ray no signs of infection
-CT abdomen pelvis shows mild rectal fecal impaction, minor diverticulosis, prominent urinary bladder distention, under distention of the ascending colon with mild wall thickening suggestive of colitis
# Severe Hypokalemia - Improved
-Suspected from diarrhea related potassium
-Mag WNL
-replace PRN
# Acute colitis - presumed infectious
-CT abdomen pelvis questioning of ascending colitis
-maintain on IV zosyn empirically
# Constipation - resolved
-had BM day 2 of hospital stay
-maintain on oral miralax
# Urinary retention
-s/p straight cath in ER
-reis catheter required to be placed yesterday for retention.
# Hypernatremia -Resolved
-secondary to poor oral intake/hypovolemia
-stop further D5 half-normal saline
# Paroxysmal A-fib
-no AC therapy due to GI bleed and MUD LOGGER hemorrhage
#GERD
GI bleed hx
distal reflux esophagitis
-Continue Protonix
# Essential HTN
-Continue losartan 100 mg
-Hold HCTZ 12.5 Mg
#Asthma
-no acute exacerbation
Continue inhalers
#Chronic pain and narcotic dependance
-MS contin 15mg TID with MS IR 15mg q6hprn resumed
-hold dose if any signs of sedation
Chronic anemia -B12 and iron deficiency
DVT with IVC filter
TBI, C1 fracture, subarachnoid hemorrhage
Arthritis
Anxiety, depression
Insomnia - hold ambien
Chronic left eye upper lid droop - Reports history of shingles left eye 20 years ago -Takes valacyclovir 500 mg daily
DVT prophylaxis -SCDs
DNR
High risk of narcotic related complication, unfortunately patient difficult to reason with.
02/13 Patient demanding to be put on back on morphine immediate release. Patient was not happy and questioning why patient was not given morphine extended release yesterday, patient was postoperative day 0 and sedate and not appropriate to get
high doses of morphine, patient not happy with answer. I have informed patient that I am resuming back her home regimen of morphine immediate release at this point.
Anticipated Discharge: Within 24 hours
Subjective/Interval History
-
Date of Service: February 15, 2024
Resting comfortably in bed
Complaining of right hip pain
Mildly sedated and slurring words at time
No other reported problem
Objective Data
-
Labs:
Laboratory Results
02/15/24
05:44
WBC 9.4
Hgb 9.3 L
Hct 28.2 L
Plt Count 229
Sodium 139
Potassium 3.8
Chloride 103
Carbon Dioxide 28
BUN 18 H
Creatinine 0.5 L
Glucose 93
Calcium 8.1 L
Vital Signs:
Vital Signs
Temp Pulse Resp BP Pulse Ox
97.9 F 72 17 132/72 98
02/15/24 11:06 02/15/24 11:06 02/15/24 11:06 02/15/24 11:06 02/15/24 11:06
I&O
02/14/24 02/15/24 02/16/24
06:59 06:59 06:59
Intake Total 1160 / 1160 1060 / 1060
Output Total 1235 / 1235 400 / 400
Balance -75 / -75 660 / 660
Review of Systems
-
Respiratory: Reports No Symptoms
Cardiac: Reports No Symptoms
Abdomen/GI: Reports No Symptoms
Physical Exam
-
General: Comfortable
HEENT: Negative Oxygen
Respiratory: Clear to Auscultation
Cardiac: Regular Rhythm and S1/S2; Negative Murmur
GI: Soft, Nontender and Nondistended
Musculoskeletal: Other (Right hip dressing in place)
Neuro: Awake, Alert, Oriented and No Motor Deficits
--- NOTE | 2024-02-15 14:16 | CM ---
Addendum entered by Caroline Gann 02/15/24 16:32:
Spoke with Pooja zavala at [facility] - will accept patient, pending bed availability
Authorization started with [facility] care transitions
REFERENCE #: [id number]
Await approval
[facility]
Report #: [phone]
Fax #: [phone]
Original Note:
Spoke with patient daughter
Additional referrals added - [facility] & [facility]
Spoke with Pooja liaison - will reach out to CM on acceptance at [facility].
Will need to obtain insurance authorization prior
PLAN: SNF, pending acceptance/bed availability. CM will need to obtain insurance auth from [facility]
[2024-02-15] MEDS: MIRALAX 17 GRAMS PO (14:52)
[2024-02-15] MEDS: FLEXERIL 5 MG PO (21:23)
[2024-02-16] MEDS: ZOSYN 50 IV ×3 (02:12→14:57)
[2024-02-16 05:30] LABS: Hematocrit 28.7 % (37.0-47.0); Hemoglobin 9.4 g/dL (12.0-16.0); Mean Corp Hgb Conc. 32.8 g/dL (33.0-37.0); Mean Corpuscular Volume 100.7 fL (81.0-99.0); Mean Platelet Volume 10.2 fL (7.4-10.4); Platelet Count 216 10^3/uL (130-400); Red Blood Cell Count 2.85 10^6/uL (4.20-5.40); White Blood Cell Count 8.1 10^3/uL (4.8-10.8)
[2024-02-16 05:48] LABS: Blood Urea Nitrogen 22 mg/dl (7-17); Calcium 8.3 mg/dl (8.4-10.2); Carbon Dioxide 28 mmol/L (22-30); Chloride 103 mmol/L (98-107); Estimated Creatinine Clearance 65 ml/min; Glucose 100 mg/dl (70-99); Sodium 136 mmol/L (135-145); eGFR > 60.00
[2024-02-16] MEDS: MORPHINE SULFATE 15 MG PO ×2 (06:04→12:04)
[2024-02-16 07:30] VITALS: BP 134/63
[2024-02-16] MEDS: ADVAIR HFA 115/21 MCG INHALER 1 PUFF INH ×2 (07:41→19:23)
[2024-02-16] MEDS: LOW STRENGTH ASPIRIN 81 MG PO ×2 (08:12→21:05)
[2024-02-16] MEDS: SANTYL OINTMENT 1 APPLIC TOPICAL (08:12)
[2024-02-16] MEDS: PROTONIX 40 MG PO (08:12)
[2024-02-16] MEDS: VALTREX 500 MG PO (08:12)
[2024-02-16] MEDS: MS CONTIN (EXTENDED RELEASE) 15 MG PO ×3 (08:12→21:05)
[2024-02-16] MEDS: MIRALAX 17 GRAMS PO (08:12)
--- NOTE | 2024-02-16 09:34 | CM ---
Called [facility] [phone] & spoke with Kelsey Campos still pending
Reference #: [id number]
tt Dr. Ryan Alves
PLAN: [facility], once ins auth is approved.
[facility]
Report #: [phone]
Fax #: [phone]
--- NOTE | 2024-02-16 13:00 | PTCARENOTE ---
Pt unable to void following catheter removal this am, stating multiple time ' just put the catheter back in'. Bladder scanned for [address] Alves notified and instructed RN to replace reis catheter. Orders placed, catheter reinserted without
difficulty.
--- NOTE | 2024-02-16 14:38 | W.PN.HOSP.TC ---
Today's Communication/Plan
-
d/c planning for snf rehab
replace reis
Assessment / Plan
Assessment / Plan
CT a/p
No apparent solid or hollow visceral organ injury. Prominent urinary bladder distention.
Mild rectal fecal impaction. Minor diverticulosis without acute diverticulitis.
Under distention of the ascending colon. Mild wall thickening suggested, which is difficult to assess given the underdistended state. However, recommend clinical correlation to exclude the possibility of nonspecific colitis.
Right intertrochanteric comminuted fracture.

# Comminuted intertrochanteric right hip fracture secondary to fall
SIRS only - POA - leukocytosis/tachycardia at present and likely from fracture/pain related.
Acute blood loss anemia from surgery
-Trauma workup including right shoulder x-ray, chest x-ray, CT head, CT cervical spine unremarkable
-s/p intramedullary fixation right intertrochanteric hip fracture on 02/12
-patient has been put back on Morphine IR 15mg q6hr and MS contin 15mg TID- PDMP reviewed
#Acute Metabolic encephalopathy - Improved
-Suspected from colitis vs medication related
-Urinalysis neg. Blood culture neg.
-Chest x-ray no signs of infection
-CT abdomen pelvis shows mild rectal fecal impaction, minor diverticulosis, prominent urinary bladder distention, under distention of the ascending colon with mild wall thickening suggestive of colitis
# Severe Hypokalemia - Improved
-Suspected from diarrhea related potassium
-Mag WNL
-replace PRN
# Acute colitis - presumed infectious
-CT abdomen pelvis questioning of ascending colitis
-No further abdominal symptoms, discontinue further Zosyn and monitor.
# Constipation - resolved
-had BM day 2 of hospital stay
-maintain on oral miralax
# Urinary retention
-s/p straight cath in ER
-Reis catheter was placed and removed yesterday, unfortunately patient retaining output of 700 mL urine. Reis to be replaced today.
-Will require voiding trial in rehab
# Hypernatremia -Resolved
-secondary to poor oral intake/hypovolemia
-stop further D5 half-normal saline
# Paroxysmal A-fib
-no AC therapy due to GI bleed and CERTIFIED REGISTERED NURSE ANESTHETIST hemorrhage
#GERD
GI bleed hx
distal reflux esophagitis
-Continue Protonix
# Essential HTN
-Continue losartan 100 mg
-Hold HCTZ 12.5 Mg
#Asthma
-no acute exacerbation
Continue inhalers
#Chronic pain and narcotic dependance
-MS contin 15mg TID with MS IR 15mg q6hprn resumed
-hold dose if any signs of sedation
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
-continue wound care.
Chronic anemia -B12 and iron deficiency
DVT with IVC filter
TBI, C1 fracture, subarachnoid hemorrhage
Arthritis
Anxiety, depression
Insomnia - hold ambien
Chronic left eye upper lid droop - Reports history of shingles left eye 20 years ago -Takes valacyclovir 500 mg daily
DVT prophylaxis -SCDs
DNR
High risk of narcotic related complication, unfortunately patient difficult to reason with.
02/13 Patient demanding to be put on back on morphine immediate release. Patient was not happy and questioning why patient was not given morphine extended release yesterday, patient was postoperative day 0 and sedate and not appropriate to get
high doses of morphine, patient not happy with answer. I have informed patient that I am resuming back her home regimen of morphine immediate release at this point.
Anticipated Discharge: Within 24 hours
Subjective/Interval History
-
Date of Service: February 16, 2024
Patient having some urine retention and difficulty voiding
No previous history of similar problems
Objective Data
-
Labs:
Laboratory Results
02/16/24
04:59
WBC 8.1
Hgb 9.4 L
Hct 28.7 L
Plt Count 216
Sodium 136
Potassium 4.0
Chloride 103
Carbon Dioxide 28
BUN 22 H
Creatinine 0.5 L
Glucose 100 H
Calcium 8.3 L
Vital Signs:
Vital Signs
Temp Pulse Resp BP Pulse Ox
97.1 F 60 14 134/63 98
02/16/24 07:30 02/16/24 07:43 02/16/24 07:43 02/16/24 07:30 02/16/24 07:43
I&O
02/15/24 02/16/24 02/17/24
06:59 06:59 06:59
Intake Total 1060 / 1060 640 / 640
Output Total 400 / 400 1425 / 1425
Balance 660 / 660 -785 / -785
Review of Systems
-
Respiratory: Reports No Symptoms
Cardiac: Reports No Symptoms
Abdomen/GI: Reports No Symptoms
Physical Exam
-
General: Comfortable
HEENT: Negative Oxygen
Respiratory: Clear to Auscultation
Cardiac: Regular Rhythm and S1/S2; Negative Murmur
GI: Soft, Nontender and Nondistended
Musculoskeletal: Other (Right hip dressing in place)
Neuro: Awake, Alert, Oriented and No Motor Deficits
[2024-02-16 15:05] VITALS: BP 136/64
[2024-02-16 15:30] VITALS: BP 136/63; PULSE 65; O2SAT 98
[2024-02-16 16:50] VITALS: BP 147/88; PULSE 95; O2SAT 100
[2024-02-16] MEDS: FLEXERIL 5 MG PO (21:05)
[2024-02-16 23:30] VITALS: BP 124/62
[2024-02-17] MEDS: MORPHINE SULFATE 15 MG PO ×2 (01:31→14:06)
[2024-02-17] MEDS: TORADOL 15 MG IV (04:54)
[2024-02-17 07:00] VITALS: BP 121/67
[2024-02-17] MEDS: ADVAIR HFA 115/21 MCG INHALER 1 PUFF INH (07:49)
[2024-02-17] MEDS: MS CONTIN (EXTENDED RELEASE) 15 MG PO (08:12)
[2024-02-17] MEDS: HYZAAR 100-12.5 TABLET 1 TAB PO (08:12)
[2024-02-17] MEDS: VALTREX 500 MG PO (08:12)
[2024-02-17] MEDS: FLOMAX 0.4 MG PO (08:12)
[2024-02-17] MEDS: PROTONIX 40 MG PO (08:12)
--- NOTE | 2024-02-17 08:12 | CM ---
Addendum entered by Caroline Gann 02/17/24 13:09:
IMM explained. In chart
Addendum entered by Caroline Gann 02/17/24 11:53:
2:30pm transport
Transportation forms on chart
Original Note:
[phone]
Spoke with [employer] - Authorization approved REFERENCE #[id number]
auth approval # not generated yet
Start date 02/16/24 ----NRD 02/18/24
Fax updates to: [phone] Emma Leone
Pooja zavala given information
tt Dr. Ryan Alves
Spoke with daughter Preethi & updated
PLAN: [facility]
Report #: [phone]
Fax #: [phone]
[2024-02-17] MEDS: LOW STRENGTH ASPIRIN 81 MG PO (08:13)
[2024-02-17] MEDS: MIRALAX 17 GRAMS PO (08:13)
[2024-02-17] MEDS: SANTYL OINTMENT 1 APPLIC TOPICAL (08:13)
[2024-02-17 14:38] VITALS: BP 131/84
--- NOTE | 2024-02-17 15:05 | W.PN.HOSP.TC ---
Today's Communication/Plan
-
d/c snf rehab
Assessment / Plan
Assessment / Plan
CT a/p
No apparent solid or hollow visceral organ injury. Prominent urinary bladder distention.
Mild rectal fecal impaction. Minor diverticulosis without acute diverticulitis.
Under distention of the ascending colon. Mild wall thickening suggested, which is difficult to assess given the underdistended state. However, recommend clinical correlation to exclude the possibility of nonspecific colitis.
Right intertrochanteric comminuted fracture.

# Comminuted intertrochanteric right hip fracture secondary to fall
SIRS only - POA - leukocytosis/tachycardia at present and likely from fracture/pain related.
Acute blood loss anemia from surgery
-Trauma workup including right shoulder x-ray, chest x-ray, CT head, CT cervical spine unremarkable
-s/p intramedullary fixation right intertrochanteric hip fracture on 02/12
-patient has been put back on Morphine IR 15mg q6hr and MS contin 15mg TID- PDMP reviewed
#Acute Metabolic encephalopathy - Improved
-Suspected from colitis vs medication related
-Urinalysis neg. Blood culture neg.
-Chest x-ray no signs of infection
-CT abdomen pelvis shows mild rectal fecal impaction, minor diverticulosis, prominent urinary bladder distention, under distention of the ascending colon with mild wall thickening suggestive of colitis
# Severe Hypokalemia - Improved
-Suspected from diarrhea related potassium
-Mag WNL
-replace PRN
# Acute colitis - presumed infectious
-CT abdomen pelvis questioning of ascending colitis
-No further abdominal symptoms, discontinue further Zosyn and monitor.
# Constipation - resolved
-had BM day 2 of hospital stay
-maintain on oral miralax
# Urinary retention
-s/p straight cath in ER
-Rodriges catheter was placed and removed yesterday, unfortunately patient retaining output of 700 mL urine. Rodriges to be replaced today.
-Will require voiding trial in rehab
# Hypernatremia -Resolved
-secondary to poor oral intake/hypovolemia
-stop further D5 half-normal saline
# Paroxysmal A-fib
-no AC therapy due to GI bleed and [employer] hemorrhage
#GERD
GI bleed hx
distal reflux esophagitis
-Continue Protonix
# Essential HTN
-Continue losartan 100 mg
-Hold HCTZ 12.5 Mg
#Asthma
-no acute exacerbation
Continue inhalers
#Chronic pain and narcotic dependance
-MS contin 15mg TID with MS IR 15mg q6hprn resumed
-hold dose if any signs of sedation
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
-continue wound care.
Chronic anemia -B12 and iron deficiency
DVT with IVC filter
TBI, C1 fracture, subarachnoid hemorrhage
Arthritis
Anxiety, depression
Insomnia - hold ambien
Chronic left eye upper lid droop - Reports history of shingles left eye 20 years ago -Takes valacyclovir 500 mg daily
DVT prophylaxis -SCDs
DNR
02/13 Patient demanding to be put on back on morphine immediate release. Patient was not happy and questioning why patient was not given morphine extended release yesterday, patient was postoperative day 0 and sedate and not appropriate to get
high doses of morphine, patient not happy with answer. I have informed patient that I am resuming back her home regimen of morphine immediate release at this point.
Anticipated Discharge: Today
Subjective/Interval History
-
Date of Service: February 17, 2024
Resting comfortably in bed
No new issues overnight
Objective Data
-
Vital Signs:
Vital Signs
Temp Pulse Resp BP Pulse Ox
98 F 99 16 131/84 97
02/17/24 14:38 02/17/24 14:38 02/17/24 14:38 02/17/24 14:38 02/17/24 14:38
I&O
02/16/24 02/17/24 02/18/24
06:59 06:59 06:59
Intake Total 640 / 640 1120 / 1120 1500 / 1500
Output Total 1425 / 1425 1900 / 1900 750 / 750
Balance -785 / -785 -780 / -780 750 / 750
Review of Systems
-
Respiratory: Reports No Symptoms
Cardiac: Reports No Symptoms
Abdomen/GI: Reports No Symptoms
Physical Exam
-
General: Comfortable
HEENT: Negative Oxygen
Respiratory: Clear to Auscultation
Cardiac: Regular Rhythm and S1/S2; Negative Murmur
GI: Soft, Nontender and Nondistended
Musculoskeletal: Other (Right hip dressing in place)
Neuro: Awake, Alert, Oriented and No Motor Deficits
--- NOTE | 2024-02-17 17:38 | W.DCSUMMARY ---
Discharge Summary
Discharge Data
Date of Admission: 02/11/24
Date of Discharge: 02/17/24
-
Pending Results: No
Hospital Course
Discharging Physician : Dr Feng Alves
Disposition : To [facility] rehab
Primary care physician : Unknown
Principal Discharge diagnosis :
Comminuted intertrochanteric right hip fracture
Acute blood loss anemia from surgery
Acute ascending colitis infectious versus stercoral
Acute toxic metabolic encephalopathy
Electrolyte imbalance
Urinary retention requiring Rodriges catheter
Hypernatremia
Chronic pain and significant narcotic dependence
Chronic Discharge diagnosis :
Paroxysmal atrial fibrillation
Gastroesophageal reflux disease
History of gastrointestinal bleed
Essential hypertension
Asthma
Sacral and left hip/buttock stage III pressure injury
History of traumatic brain injury/C1 fracture
History of subarachnoid hemorrhage
History of deep venous thrombosis post inferior vena cava filter
Insomnia
Chronic left eye ptosis
Hospital Course :
Patient is a 73-year-old female with above-mentioned past medical history after mechanical fall at home. Patient was found at bottom of the stairs by police on a welfare check initiated by patient out-of- [facility] children. In ER patient was noted
to be confused and there was clinical concern of infection. Further workup on CT abdomen showing patient having stool impaction and minor ascending colon colitis, which was felt to be possible infectious versus alcohol in nature based on clinical
presentation. Patient was started on empiric antibiotics. Patient also had comminuted intertrochanteric right hip fracture for which orthopedic surgery was involved in care. Trauma workup including chest x-ray/CT head/CT cervical spine was
unremarkable. Patient underwent uneventful surgery and fixation of right hip. Patient was provided laxatives and constipation resolved. Patient also developed some urinary retention and required Rodriges catheter placement. Voiding trial was
attempted although patient failed and Rodriges catheter was reinserted. Of note patient is on high dose narcotic pain medication and was quite agitated on not able to get home regimen. Patient is not able to be reasoned with regarding to be weaned
off of narcotics and will be remained up persistent risk for future encephalopathy/narcotic induced complications.
Post medical stabilization patient was discharged to [facility] rehab at this point.
Important imaging findings :
None
Procedure findings :
None
Discharge Plan
-
Patient Disposition: Senior Care/SNF
Discharge Diagnosis/Procedures: Right hip fracture, chronic pain and narcotic dependence, ambulatory dysfunction, urinary retention
Condition: Fair
Diet: Regular
Activity: As tolerated
Additional Activity: WBAT RLE on walker/assistance
Driving Restrictions: No driving
Bathing Restrictions: OK to Shower
Activity Restrictions/Additional Instructions:
Wound Care Instructions
Sacrum and L buttock: clean with Soap and water, skin prep periwound, Santyl( jerome thick to slough) adaptic and dry dressing change daily.
Air mattress with turning schedule
air cushion when sitting
increase protein in diet.
Follow up at wound care center call for an appointment.

Right hip dressings to remain on for 7 to 10 days
Referrals:
Armin Torres MD [Active] - in three to four weeks
UNKNOWN - PT NOT,INTERVIEWE [Family Provider] -
Prescriptions:
New
tamsulosin 0.4 mg Capsule
0.4 mg PO DAILY Qty: 30 0RF
aspirin 81 mg Tablet,Chewable
81 mg PO BID Qty: 60 0RF
Rx Instructions:
For 4 Weeks and THEN stop
Tylenol Extra Strength 500 mg powder in packet
1,000 mg PO Q8H Qty: 32 0RF
morphine 15 mg tablet
15 mg PO TID Qty: 14 0RF
morphine 15 mg tablet
15 mg PO Q6H PRN (Reason: Mod sev pain) Qty: 7 0RF
zolpidem 12.5 mg tablet,ext release multiphase
12.5 mg PO HS PRN (Reason: insomnia) Qty: 3 0RF
Continued
cyclobenzaprine 10 MG tablet
5 mg PO HS
valacyclovir 500 mg tablet
500 mg PO DAILY
fluticasone propion-salmeterol [Advair HFA] 115-21 mcg/actuation Hfa Aerosol Inhaler
1 puff INHALATION R BID
pantoprazole [Protonix] 40 mg Tablet,Delayed Release (Dr/Ec)
40 mg PO DAILY
losartan-hydrochlorothiazide 100-12.5 mg Tablet
1 tab PO DAILYPRN PRN (Reason: blood pressure )
Discontinued
morphine 15 mg tablet extended release
15 mg PO TID
morphine 15 mg tablet
15 mg PO Q6HPRN PRN (Reason: severe pain)
zolpidem [Ambien CR] 12.5 mg Tablet,Ext Release Multiphase
12.5 mg PO HSPRN PRN (Reason: sleep)
Discharge Orders:
Discharge Patient (As Directed); Ordered 02/17/24
Ordered By: Feng Alves
Discharge Date and Time
Discharge Date/Time: 02/17/24 15:02
Print Language: QATARI
== END 2024-02-17 15:02 | DRG 480 ==
LOC: 2 SOUTH 14:12
PROVIDERS: Physician Assistant; Student in an Organized Health Care Education/Training Program; ADMITTING PHYSICIAN Hospitalist; ATTENDING PHYSICIAN Hospitalist; CONSULT PHYSICIAN Orthopaedic Surgery; EMERGENCY PHYSICIAN Emergency Medicine
PROC: 0QS636Z Reposition Right Upper Femur with Intramedullary Internal Fixation Device, Percutaneous Approach (ICD-10-PCS; 2024-02-13)
DX: S72.141A Displaced intertrochanteric fracture of right femur, initial encounter for closed fracture (principal); G92.8 Other toxic encephalopathy; L89.323 Pressure ulcer of left buttock, stage 3; L89.153 Pressure ulcer of sacral region, stage 3; E87.0 Hyperosmolality and hypernatremia; F03.93 Unspecified dementia, unspecified severity, with mood disturbance; F03.94 Unspecified dementia, unspecified severity, with anxiety; A09 Infectious gastroenteritis and colitis, unspecified; F11.20 Opioid dependence, uncomplicated; R65.10 Systemic inflammatory response syndrome (SIRS) of non-infectious origin without acute organ dysfunction; D62 Acute posthemorrhagic anemia; F03.911 Unspecified dementia, unspecified severity, with agitation; Z66 Do not resuscitate; I48.0 Paroxysmal atrial fibrillation; I10 Essential (primary) hypertension; E86.1 Hypovolemia; E86.0 Dehydration; K21.00 Gastro-esophageal reflux disease with esophagitis, without bleeding; E87.6 Hypokalemia; J45.909 Unspecified asthma, uncomplicated; R33.9 Retention of urine, unspecified; G47.00 Insomnia, unspecified; G89.29 Other chronic pain; K59.00 Constipation, unspecified; D51.3 Other dietary vitamin B12 deficiency anemia; D50.9 Iron deficiency anemia, unspecified; Z95.828 Presence of other vascular implants and grafts; Z86.711 Personal history of pulmonary embolism; Z91.041 Radiographic dye allergy status; Z91.040 Latex allergy status; Z79.51 Long term (current) use of inhaled steroids; W10.9XXA Fall (on) (from) unspecified stairs and steps, initial encounter; Z87.820 Personal history of traumatic brain injury; Z86.718 Personal history of other venous thrombosis and embolism
CPT/HCPCS: 70450; 71045; 72125; 73030; 73502; 74177; 76000; 80048; 80053; 81003; 81015; 82550; 83605; 83735; 85025; 85027; 86850; 86900; 86901; 87040; 93005; 94640; 96360; 96361; 97116; 97163; 97167; 97530; 97535; 99285; C1713; Q9967

== ENCOUNTER → 2024-04-20 09:54 | Outpatient (REF) | payer MEDICARE, SELFPAY | LOC: RAD 09:54 | PROVIDERS: ATTENDING PHYSICIAN Physician Assistant; FAMILY PHYSICIAN Internal Medicine | DX: Z87.81 Personal history of (healed) traumatic fracture (principal) | CPT/HCPCS: 73502 ==